=== PATIENT | male | born 1955 | race Caucasian/White ===

== ENCOUNTER → 2016-10-24 | Outpatient (CLI) | payer OTHER ==
[~2016-10-24] MED LIST: ACET-1256 PO; ATV/1 PO; CITA20TA9 PO; COCO1OIL2 PO; COEN10CA5 PO; DOCU-94 PO; GARL400T4 PO; HYOS0.1255 PO; LCTX PO; MULT-506 PO; OMEGCAP2 PO; ONDA4TAB65 PO; POLY335019 PO; PSYL1POW4 PO; SENN-91 PO
[2016-10-24 17:05] LABS: ALT/SGPT 22 U/L (12-78); AST/SGOT 9 U/L (15-37); BLOOD UREA NITROGEN 21 mg/dl (7-18); BUN/CREATININE RATIO 27.3 (10-20); CALCIUM 8.9 mg/dl (8.5-10.1); CARBON DIOXIDE 28 mmol/L (21-32); CHLORIDE 105 mmol/L (98-107); CREATININE 0.76 mg/dl (0.60-1.40); GLUCOSE 96 mg/dl (70-99); POTASSIUM 4.3 mmol/L (3.5-5.1); SODIUM 141 mmol/L (136-145)
[2016-10-24 17:10] LABS: BASO % 0.5 %; BASO ABS # 0.03 K/uL (0-0.2); COMPLETE YES; EOS % 1.7 %; HEMATOCRIT 43.3 % (42-52); IG% 0.5 %; LYMPH % 23.3 %; LYMPH ABS # 1.39 K/uL (1.2-3.4); MEAN CELL VOLUME 88.4 fL (80-100); MEAN CORPUSCULAR HEMOGLOBIN 30.6 pg (25-34); MEAN CORPUSCULAR HGB CONC 34.6 g/dl (32-36); MEAN PLATELET VOLUME 10.2 fL (7.4-10.4); MONO % 9.2 %; NEUT % 64.8 %; PLATELET COUNT 204 K/uL (130-400); WHITE BLOOD COUNT 5.96 K/uL (4.8-10.8)
[2016-10-24 17:11] LABS: ALB/GLOB RATIO 1.1 (0.9-2); ALKALINE PHOSPHATASE 72 U/L (45-117); CHOLESTEROL 171 mg/dl (0-200); CHOLESTEROL/HDL RATIO 2.7; HDL CHOLESTEROL 63 mg/dl; LDL CHOLESTEROL CALCULATED 98 mg/dl; PROSTATE SPECIFIC ANTIGEN 0.469 ng/ml (0.000-4.000); TRIGLYCERIDES 48 mg/dl (0-150); VERY LOW DENSITY LIPOPROT CALC 10 mg/dl
--- NOTE | 2017-01-05 09:57 | CODING QUERY MEDICAL NECESSITY ---
CQSUPPORTING DIAGNOSIS NEEDED A supporting diagnosis is required for the test/procedure performed on this patient in order for us to be reimbursed by the patient's insurance. Please provide a supporting diagnosis for the following test/procedure listed below next to the test name along with your signature. *If there is no additional diagnosis for this patient that would support the following test/procedure please document that below next to the test/procedure. Test(s)/Procedure(s) that require a supporting diagnosis: DOS 10/24/16 COMPLETE BLOOD COUNT ORDERED BY ZACHARY PRESCOTT Provider Signature: Date: Thank you Elsa Pacheco Health Information Management Once completed, please kindly fax back to [phone] For questions please call [phone]
== END | disposition home or self-care (01) ==
LOC: C.LABBFT 13:47
PROVIDERS: ATTEND Physician Assistant Medical
DX: Z00.00 Encounter for general adult medical examination without abnormal findings (principal); Z12.5 Encounter for screening for malignant neoplasm of prostate

== ENCOUNTER → 2017-12-31 | Day surgery (SDC) | payer OTHER ==
[2017-12-25 13:28] VITALS: BMI 28.0
--- NOTE | 2017-12-25 14:04 | PAT Medication Instructions ---
Service Date December 25, 2017. Current Home Medication List Citalopram Hydrobromide (Celexa), 20 MG PO QPM Multivitamin (Multivitamin), 1 TAB PO PRN Medication Instructions For Your Scheduled Surgery - Hold the following medications the morning of surgery: Multivitamin (Multivitamin), 1 TAB PO PRN - Take the following medications as scheduled the night before surgery: Citalopram Hydrobromide (Celexa), 20 MG PO QPM If you have any questions please call us at [phone] or [phone] or [phone]
--- NOTE | 2017-12-25 14:55 | DIAGNOSTIC IMAGING REPORT ---
TWO VIEW CHEST CLINICAL HISTORY: Preoperative examination. FINDINGS: PA and lateral chest radiographs are compared to study dated 06/21/2016 and correlated with chest CT dated 01/25/2016. The PA view is degraded by patient rotation. The heart is mildly enlarged. The pulmonary vasculature is noncongested. Emphysema and chronic interstitial thickening are similar to previous. No airspace consolidation or pleural effusion is identified. There is a 10 mm nodular density suggested in the right upper lobe. No airspace consolidation or pleural effusion is identified. There is no pneumothorax. The skeletal structures are osteopenic. Degenerative changes noted throughout the thoracic spine. There are healed left-sided rib fractures. IMPRESSION: 1. Mild cardiac enlargement and emphysema. 2. There is no airspace consolidation or pleural effusion. 3. A 10 mm nodular density is suggested in the right upper lobe. Follow-up with a chest CT is recommended for further assessment. Electronically signed by: Henrique Roblero M.D. 12/25/2017 2:54 PM Dictated Date/Time: 12/25/2017 2:50 PM
[2017-12-25 14:59] LABS: BASO % 0.3 %; BASO ABS # 0.02 K/uL (0-0.2); EOS % 1.2 %; EOS ABS # 0.07 K/uL (0-0.5); HEMOGLOBIN 15.5 g/dL (14.0-18.0); IG# 0.02 K/uL (0.00-0.02); LYMPH % 24.2 %; LYMPH ABS # 1.45 K/uL (1.2-3.4); MEAN CORPUSCULAR HGB CONC 34.4 g/dl (32-36); MEAN PLATELET VOLUME 9.7 fL (7.4-10.4); MONO % 9.8 %; MONO ABS # 0.59 K/uL (0.11-0.59); NEUT % 64.2 %; NEUT ABS # 3.85 K/uL (1.4-6.5); PLATELET COUNT 185 K/uL (130-400); RED CELL DISTRIBUTION WIDTH CV 13.4 % (11.5-14.5); RED CELL DISTRIBUTION WIDTH SD 42.8 fL (36.4-46.3)
[2017-12-25 15:07] LABS: CALCIUM 9.4 mg/dl (8.5-10.1); CREATININE 0.78 mg/dl (0.60-1.40)
[~2017-12-31] VITALS: Ht 195.6 cm; Wt 109.6 kg
[~2017-12-31] MED LIST changes: -ACET-1256 PO; +ATROPINE SULFATE 0.1 MG/ML 5ML SYR IV PRN; -ATV/1 PO; +BACITRACIN 50000 UNIT VIAL ONE; +BUPIVACAINE 0.5 % 5 MG/1 ML MPF 30ML VIAL ONE; +CEFAZOLIN SOD 1 GM VIAL ONE; -COCO1OIL2 PO; -COEN10CA5 PO; -DOCU-94 PO; +EpHEDrine SULFATE INJ 50 MG/ML AMP IV PRN; +FENTANYL CITRATE INJ 50 MCG/1 ML 2 ML VIAL IV PRN; +FENTANYL CITRATE INJ 50 MCG/1 ML 2 ML VIAL ONE; +FLUMAZENIL 0.1 MG/1 ML 10 ML VIAL IV PRN; -GARL400T4 PO; -HYOS0.1255 PO; +LABETALOL HCL IV 5 MG/ML 20ML IV PRN; +LACTATED RINGER'S 1000ML 1,000 ML IV SCH; -LCTX PO; +LIDOCAINE HCL 2% 2 ML VIAL (20MG/ML) ONE; +MIDAZOLAM HCL 1 MG/ML 2ML VIAL ONE; +NALOXONE HCL 0.4 MG/1 ML VIAL/CARP IV PRN; -OMEGCAP2 PO; -ONDA4TAB65 PO; +ONDANSETRON INJ 2 MG/ML 2 ML VIAL IV PRN; +OXYC-57 PO; -POLY335019 PO; +PROPOFOL IV EMULSION 10 MG/ML 20 ML VIAL ONE; -PSYL1POW4 PO; -SENN-91 PO
[2017-12-31 11:51] VITALS: BP 145/80; PULSE 76; TEMP 36.9; O2SAT 97; Ht 195.6 cm; Wt 109.6 kg
--- NOTE | 2017-12-31 12:34 | History & Physical Bridge Note ---
H&P Re-Evaluation Bridge Note: I have examined the patient, reviewed the History & Physical and in the interval since the performance of the History & Physical I have noted the following changes of clinical significance: No changes noted pt marked at bedside all questions answered will get nasal swab cultures for MRSA tag reversal
--- NOTE | 2017-12-31 12:55 | Discharge Instructions ---
Discharge Instructions Date of Service December 31, 2017. Admission Reason for Admission: Umbilical Hernia Discharge Discharge Diagnosis / Problem: Umbilical Hernia Discharge Goals Goal(s): Decrease discomfort, Improve function Activity Recommendations Activity Limitations: as noted below Lifting Limitations: no more than 10 pounds Exercise/Sports Limitations: until after follow-up appointment May Resume Sexual Activity: after follow-up appointment Shower/Bathe: tomorrow Driving or Machine Use: resume 3 days after discharge . Instructions / Follow-Up Instructions / Follow-Up You may shower tomorrow, but please do not soak or scrub your incision. Please follow-up with Dr. Arriola in the General Surgery Clinic. Please call the office at [phone] to make an appointment if you do not have one already. Please call the General Surgery Clinic with any questions or concerns. Current Hospital Diet Patient's current hospital diet: Discharge Diet Recommended Diet: Regular Diet Pending Studies Studies pending at discharge: no Medical Emergencies . Who to Call and When: Medical Emergencies: If at any time you feel your situation is an emergency, please call 911 immediately. . Non-Emergent Contact Non-Emergency issues call your: Primary Care Provider, Surgeon Call Non-Emergent contact if: temperature is above 101.5, your pain is not controlled, wound has increased drainage, wound has increased redness . "Provider Documentation" section prepared by Patt Florian. .
--- NOTE | 2017-12-31 13:39 | [facility] Post Operative Brief Note ---
Immediate Operative Summary Operative Date December 31, 2017. Pre-Operative Diagnosis Umbilical Hernia Post-Operative Diagnosis Incarcerated umbilical hernia incisional Procedure(s) Performed Open Incarcerated Umbilical Hernia Repair incisional resection incarcerated tissue Surgeon Dr. Anjel Arriola Intelligent Systems Engineer Surgeon(s) None per surgeon. Estimated Blood Loss 5 cc Findings See Below 1.5 cm defect inc tissue Specimens A: incarcerated hernia contents Anesthesia Type MAC
[2017-12-31 14:20] VITALS: BP 151/83; PULSE 61; TEMP 36.6; O2SAT 96
--- NOTE | 2017-12-31 14:23 | OPERATIVE REPORT ---
DATE OF OPERATION: 12/31/2017 SURGEON: Anjel Arriola M.D. PREOPERATIVE DIAGNOSIS: Incarcerated umbilical hernia. POSTOPERATIVE DIAGNOSIS: Incarcerated incisional hernia. PROCEDURE: Open repair incarcerated incisional hernia. SUMMARY: Patient was brought into the operating room theater. The abdomen was prepped with Betadine scrubbing solution and properly draped. Systemic antibiotics were given. Local anesthetic 1% Xylocaine without epinephrine was used to infiltrate around the incision that the patient had an infraumbilical smiling type of incision that was used apparently to do laparoscopic Christiana in the past. Incision was made from 3-9 o'clock position, deepened through subcutaneous tissue. Once we entered the subcutaneous tissue, moderate amount of scar tissue was identified and dissected out to the abdominal wall. We circumferentially elevated the umbilical tissue out and identified that the patient had a significant amount of incarcerated fatty tissue coming through the abdominal wall opening which was about a centimeter or so in size. We resected incarcerated fatty tissue, ligating the base with 2-0 silk, returned the other tissue intraabdominally, freed up the abdominal wall fascia around the defect and as stated was about 1.5 cm in size and I felt that it was probably sufficient to close it primarily with interrupted #1 PDS suture. Once the repair was completed, we then reattached the subcutaneous tissue and the umbilical area to that area with 2-0 Dexon, 4-0 Monocryl subcuticular, piece of cotton swab was placed in the umbilical tissue, 4 x 4 and Op-Site applied. Procedure was tolerated well by the patient. Estimated blood loss approximately 5 mL. The patient was taken to recovery in good condition. I attest to the content of the Intraoperative Record and any orders documented therein. Any exception s are noted below.
--- NOTE | 2017-12-31 14:24 | Anesthesiology Progress Note ---
Anesthesia Post Op Note Date & Time December 31, 2017 at 14:23 Vital Signs Pain Intensity: 1 Vital Signs Past 12 Hours Date Time Temp Pulse Resp B/P (MAP) Pulse Ox O2 Delivery O2 Flow Rate FiO2 12/31/17 14:00 36.8 62 16 131/75 98 Room Air 12/31/17 13:55 67 16 124/70 99 Room Air 12/31/17 13:45 36.7 67 16 127/73 99 Room Air 12/31/17 11:51 36.9 76 20 145/80 (101) 97 Room Air Notes Mental Status: alert / awake / arousable, participated in evaluation Pt Amnestic to Procedure: Yes Nausea / Vomiting: adequately controlled Pain: adequately controlled Airway Patency, RR, SpO2: stable & adequate BP & HR: stable & adequate Hydration State: stable & adequate Anesthetic Complications: no major complications apparent
[2017-12-31 14:50] VITALS: BP 145/80; PULSE 54; TEMP 36.6; O2SAT 96
== END | disposition home or self-care (01) ==
LOC: C.ACU 11:23
PROVIDERS: ATTEND Surgery
DX: K42.0 Umbilical hernia with obstruction, without gangrene (principal); L72.3 Sebaceous cyst; Z96.651 Presence of right artificial knee joint; Z90.49 Acquired absence of other specified parts of digestive tract; Z98.890 Other specified postprocedural states; Z82.3 Family history of stroke; Z82.49 Family history of ischemic heart disease and other diseases of the circulatory system; Z81.8 Family history of other mental and behavioral disorders; F12.90 Cannabis use, unspecified, uncomplicated; Z87.891 Personal history of nicotine dependence; Z79.899 Other long term (current) drug therapy; Z88.8 Allergy status to other drugs, medicaments and biological substances

== ENCOUNTER → 2018-04-07 | Outpatient (CLI) | payer OTHER ==
[~2018-04-07] MED LIST changes: -ATROPINE SULFATE 0.1 MG/ML 5ML SYR IV PRN; -BACITRACIN 50000 UNIT VIAL ONE; -BUPIVACAINE 0.5 % 5 MG/1 ML MPF 30ML VIAL ONE; -CEFAZOLIN SOD 1 GM VIAL ONE; -EpHEDrine SULFATE INJ 50 MG/ML AMP IV PRN; -FENTANYL CITRATE INJ 50 MCG/1 ML 2 ML VIAL IV PRN; -FENTANYL CITRATE INJ 50 MCG/1 ML 2 ML VIAL ONE; -FLUMAZENIL 0.1 MG/1 ML 10 ML VIAL IV PRN; -LABETALOL HCL IV 5 MG/ML 20ML IV PRN; -LACTATED RINGER'S 1000ML 1,000 ML IV SCH; -LIDOCAINE HCL 2% 2 ML VIAL (20MG/ML) ONE; -MIDAZOLAM HCL 1 MG/ML 2ML VIAL ONE; -NALOXONE HCL 0.4 MG/1 ML VIAL/CARP IV PRN; -ONDANSETRON INJ 2 MG/ML 2 ML VIAL IV PRN; -OXYC-57 PO; -PROPOFOL IV EMULSION 10 MG/ML 20 ML VIAL ONE
== END | disposition home or self-care (01) ==
LOC: C.PATHSPEC 17:15
PROVIDERS: ATTEND Surgery
DX: L82.1 Other seborrheic keratosis (principal)

== ENCOUNTER 2025-06-14 04:51 | Inpatient (IN) ==
[2025-06-14] MEDS: MoRPHine SULFATE 4 MG/ML 1 ML CARP\\VIAL IV PRN (05:13)
[2025-06-14] MEDS: ONDANSETRON INJ 2 MG/ML 2 ML VIAL IV STA (05:13)
[2025-06-14] MEDS: SODIUM CHLORIDE 0.9% 1,000 ML IV ONE (05:14)
--- NOTE | 2025-06-14 05:21 | Emergency Department Note ---
History of Present Illness General Chief complaint: Abdominal Pain Stated complaint: ABD PAIN,VOMITING,SHAKING Time Seen by Provider: 06/14/25 04:57 History of Present Illness Maximum Pain Intensity: 10 This is a 69-year-old male presenting to the emergency department for evaluation abdominal pain for the past 3 days. He is coming in by his who assist in the history. Patient states the pain is diffuse across his abdomen. He is with nausea and vomiting. Patient has not had fevers or chills. He does have a past history of chronic abdominal pain and small bowel obstruction. Patient has been using marijuana for low back pain. No recent travel history. No change in medications. Home Medications Medication Instructions Recorded Confirmed Type multivitamin 1 tab PO HS 03/21/21 06/14/25 History ginkgo biloba leaf extract 120 mg 120 mg PO DAILY 05/30/24 06/14/25 History capsule magnesium aspart,citrate,oxide 0 mg PO UD 05/30/24 06/14/25 History omega-3 fatty acids 500 mg capsule 500 mg PO DAILY 05/30/24 06/14/25 History potassium citrate 99 mg capsule 0 mg PO UD 05/30/24 06/14/25 History citalopram 20 mg tablet 20 mg PO QAM #90 tabs 06/20/24 06/14/25 Rx gabapentin 300 mg capsule 300 mg PO TID 06/14/25 06/14/25 History Allergies Allergy/AdvReac Type Severity Reaction Status Date / Time No Known Allergies Allergy Verified 06/22/24 14:27 Past Med/Surg History Problem List (Updated 06/14/25 @ 21:26 by Andrew Landry PA-C) Marijuana use (Acute) Nausea and vomiting (Acute) Abdominal pain (Acute) Cardiomyopathy Elevated troponin (Acute) NSTEMI (non-ST elevated myocardial infarction) Sinus tachycardia Colon cancer screening Encounter for pre-operative examination Coronary artery calcification Hyperlipidemia Chronic lumbar pain (Chronic) Lumbar radiculopathy (Chronic) Chest pain Chronic abdominal pain (Chronic) Depression (Chronic) Sacroiliitis Esophageal dysmotility (Chronic) "s/p dilation 02/2015" Septic arthritis (Chronic) "right knee, completed Vanco therpay, s/p antibiotic spacer placement " Hx MRSA infection (Chronic) [facility] Medical History Anxiety Elevated cholesterol Scoliosis Osteoarthritis Surgical History History of repair of rotator cuff right Hx of colonoscopy Hx of abdominal surgery repair of torn diaphragm Hx of laparoscopy ingrid fundoplication History of total knee replacement RT (+REVISION) History of lumbar surgery no hardware History of knee surgery right/left History of esophagogastroduodenoscopy (EGD) History of cholecystectomy History of tooth extraction S/P revision of total knee right S/P repair of paraesophageal hernia "02/2015" Family History Brother Family history of diabetes mellitus Other No family history of adverse response to anesthesia Denies family history of Ovarian cancer Prostate cancer Myocardial infarction Breast cancer Colorectal cancer Social History Smoking Status: Never smoker Tobacco Type: Cigarettes Age Started Using Tobacco: 19; Age Quit Using Tobacco: 50; packs per day: 1; Second Hand Exposure: Yes (as a child); Do You Dip or Chew Tobacco: Yes; Hx Alcohol Use: Yes Alcohol type: beer Alcohol Intake Frequency: Monthly or Less Hx Substance Use: Yes Last Used Substance: Days (ago) Preferred Language: Georgian Communication Ability: Effective Visual Impairment: No Limitations Hearing Ability: Normal Auto Refinisher Required: No Beliefs That Will Affect Care: None marital status: Current Living Situation: Spouse Current Living Situation Comment: live at home with current occupational status: retired 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 [employer] Feels Safe at Home: Yes Childhood Exposure to Second-Hand Smoke: Yes Diet: regular Diet Comment: eats very healthy caffeine: Yes Dental Care, Regularly: Yes Physical Activity Frequency: Daily Seatbelt Use: always Sunscreen Use: Yes Assistive Devices: None Review of Systems A total of 10 systems reviewed and were otherwise negative Physical Exam Vital Signs Vital Signs - 24 hr 06/14/25 04:54 06/14/25 05:09 06/14/25 06:33 Temperature 36.5 C Temperature Source Oral Pulse Rate 122 H 129 H Pulse Rate [Apical] 99 H Pulse Rhythm [Apical] Regular Pulse Strength [Apical] Normal Respiratory Rate 28 H 20 Respiratory Effort / Characteristics Non-Labored Respiratory Depth Deep Respiratory Pattern Regular Blood Pressure 156/83 H Blood Pressure [Right Arm] 161/98 H Blood Pressure Mean 107 Blood Pressure Mean [Right Arm] 119 Blood Pressure Position [Right Arm] Lying Pulse Oximetry 94 93 Oxygen Delivery Method Room Air Room Air Sepsis Recent Fever Within 48 Hours No Sepsis New/Unexplained Change in Mental Status N/A Sepsis Action Taken by Nursing No Action Required VITALS: Vitals are noted on the nurse's note and reviewed by myself. Vital signs with notable tachycardia. GENERAL: White male who is very tremulous on arrival HEAD: Normocephalic atraumatic. NECK: Supple without nuchal rigidity. No lymphadenopathy. No thyromegaly. Cervical spine is nontender. HEART: Tachycardic rate with regular rhythm LUNGS: Clear to auscultation bilaterally without wheezes, rales or rhonchi. No retractions or accessory muscle use. ABDOMEN: Positive normal bowel sounds x 4. Soft, nontender, without masses or organomegaly. No guarding or rebound tenderness. MUSCULOSKELETAL: No muscle atrophy, erythema, or edema noted. Full range of motion in all extremities. Course Administered Medications Hydromorphone HCl (Hydromorphone Inj 1 Mg/Ml Syringe) 1 mg IV Q3H PRN PRN Reason: Severe Pain (Scale 7, 8, 9,10) Stop: 06/28/25 06:24 Last Admin: 06/14/25 14:06 Dose: 1 mg Documented By: Admin: 06/14/25 09:26 Dose: 1 mg Documented By: AZALEA Potassium Chloride/Sodium Chloride (Normal Saline W/20 Meq Kcl) 20 meq in 1,000 mls @ 100 mls/hr IV .Q10H [facility] Stop: 06/15/25 02:44 Last Admin: 06/14/25 20:35 Dose: 100 mls/hr Documented By: Infusion: 06/14/25 19:05 Dose: Infused Documented By: Admin: 06/14/25 09:05 Dose: 100 mls/hr Documented By: AZALEA Prochlorperazine 10 mg/ (Syringe) 10 mls @ 5 mls/min IV Q6H PRN PRN Reason: Nausea And Vomiting Stop: 07/14/25 06:59 Last Admin: 06/14/25 09:22 Dose: 5 mls/min Documented By: AZALEA Dexamethasone 6 mg/ Syringe 1.5 mls @ 1 mls/min IV Q12H KARO Stop: 07/14/25 07:59 Last Admin: 06/14/25 20:37 Dose: 1 mls/min Documented By: Admin: 06/14/25 11:12 Dose: 1 mls/min Documented By: KATERINA Pantoprazole Sodium (Protonix) 40 mg in 10 mls @ 5 mls/min IV BID KARO Stop: 07/14/25 20:59 Last Admin: 06/14/25 20:37 Dose: 5 mls/min Documented By: SHRAVAN Multivitamins (Multivitamin Tab) 1 tab PO HS KARO Stop: 07/14/25 20:59 Last Admin: 06/14/25 20:38 Dose: 1 tab Documented By: SHRAVAN Discontinued Medications Aspirin (Aspirin 81 Mg Chew) 324 mg PO NOW STA Stop: 06/14/25 11:53 Last Admin: 06/14/25 12:07 Dose: 324 mg Documented By: KATERINA Diltiazem HCl (Diltiazem Hcl 5 Mg/Ml 5 Ml Vial) 10 mg IV NOW STA Stop: 06/14/25 06:29 Last Admin: 06/14/25 06:40 Dose: 10 mg Documented By: eldon Co-signed By: JOE Diltiazem HCl (Diltiazem Hcl 5 Mg/Ml 5 Ml Vial) 10 mg IV Q4H STA Stop: 06/14/25 07:20 Last Admin: 06/14/25 08:25 Dose: Not Given Documented By: CEF Sodium Chloride (Nss) 1,000 mls @ 999 mls/hr IV .Q1H1M ONE Stop: 06/14/25 06:01 Last Infusion: 06/14/25 06:14 Dose: Infused Documented By: Admin: 06/14/25 05:14 Dose: 999 mls/hr Documented By: JOE Pantoprazole Sodium (Protonix) 40 mg in 10 mls @ 5 mls/min IV NOW ONE Stop: 06/14/25 06:37 Last Admin: 06/14/25 06:46 Dose: 5 mls/min Documented By: eldon Famotidine (Pepcid 20mg Iv Push) 20 mg in 5 mls @ 2.5 mls/min IV NOW STA Stop: 06/14/25 08:37 Last Admin: 06/14/25 09:03 Dose: 2.5 mls/min Documented By: AZALEA Promethazine HCl (Phenergan) 25 mg in 51 mls @ 204 mls/hr IV NOW STA Stop: 06/14/25 13:38 Last Infusion: 06/14/25 15:43 Dose: Infused Documented By: mahnaz Admin: 06/14/25 14:06 Dose: 204 mls/hr Documented By: GUADALUPE Ioversol (Optiray 320 100ml) 94 ml IV ONCE ONE Stop: 06/14/25 09:51 Last Admin: 06/14/25 09:51 Dose: 94 ml Documented By: SHELLIE Lorazepam (Lorazepam 1 Mg/1 Ml Syr Ed Inj Use) 0.5 mg IV ONE STA Stop: 06/14/25 05:15 Last Admin: 06/14/25 05:23 Dose: 0.5 mg Documented By: JOE Morphine Sulfate (Morphine Sulfate 4 Mg/Ml 1 Ml Carp\\Vial) 4 mg IV Q30M PRN PRN Reason: Pain Stop: 06/28/25 05:00 Last Admin: 06/14/25 06:13 Dose: 4 mg Documented By: eldon Admin: 06/14/25 05:13 Dose: 4 mg Documented By: JOE Ondansetron HCl (Ondansetron Inj 2 Mg/Ml 2 Ml Vial) 4 mg IV NOW STA Stop: 06/14/25 05:02 Last Admin: 06/14/25 05:13 Dose: 4 mg Documented By: JOE Medical Decision Making Differential Diagnosis Differential diagnosis: Etiologies such as biliary colic, cholecystitis, hepatitis, pancreatitis, cardiac disease, pancreatitis, gastritis, peptic ulcer disease, appendicitis, cystitis, diverticulitis, mesenteric ischemia, inflammatory bowel disease, ileus, bowel obstruction, testicular/adnexal torsion, aortic pathology, shingles, as well as others were considered Laboratory Data 06/14/25 05:02 06/14/25 16:10 Lab Results 06/14/25 Range/Units 05:02 WBC 16.26 H (4.8-10.8) K/ul RBC 6.03 (4.70-6.10) M/uL Hgb 18.2 H (14.0-18.0) g/dl Hct 51.8 (42.0-52.0) % MCV 85.9 (80.0-100.0) fL MCH 30.2 (25.0-34.0) pg MCHC 35.1 (32.0-36.0) g/dL RDW Std Deviation 42.3 (36.4-46.3) fL RDW Coeff of Richard 13.6 (11.5-14.5) % Plt Count 345 (130-400) K/uL MPV 9.5 (9.4-12.4) fL Immature Gran % (Auto) 0.6 % Neut % (Auto) 74.3 % Lymph % (Auto) 14.9 % Citrus % (Auto) 9.7 % Eos % (Auto) 0.1 % Baso % (Auto) 0.4 % Neut # (Auto) 12.10 H (1.40-6.50) K/uL Lymph # (Auto) 2.42 (1.20-3.40) K/uL Citrus # (Auto) 1.57 H (0.11-0.59) K/uL Eos # (Auto) 0.02 (0.00-0.50) K/uL Baso # (Auto) 0.06 (0.00-0.20) K/uL Immature Gran # (Auto) 0.09 (0.01-0.20) K/uL PT 12.0 (9.0-12.0) Seconds INR 1.1 (0.9-1.1) APTT 26 (21-31) Seconds PTT Ratio 1.0 Sodium 132 L (136-145) mmol/L Potassium 3.7 (3.5-5.1) mmol/L Chloride 100 (98-107) mmol/L Carbon Dioxide 18 L (21-32) mmol/L Anion Gap 14 H (3-11) BUN 44 H (6-23) mg/dl Creatinine 1.28 (0.6-1.4) mg/dl Est Cr Clr Drug Dosing Not Reportable eGFR 59.84 BUN/Creatinine Ratio 34.4 H (10-20) Glucose 181 H (70-99(Fasting)) mg/dl Calcium 10.8 H (8.6-10.3) mg/dl Magnesium 2.2 (1.7-2.4) mg/dl Total Bilirubin 1.2 H (0.2-1.0) mg/dl AST 36 (13-39) U/L ALT 19 (7-52) U/L Alkaline Phosphatase 93 (34-104) U/L Troponin I High Sens 73.1 H* (0-20) pg/ml Total Protein 8.8 H (6.0-8.3) gm/dl Albumin 4.7 (3.4-5.0) gm/dl Globulin 4.1 H (2.5-4.0) gm/dl Albumin/Globulin Ratio 1.1 (0.9-2) Lipase 25 (11-82) U/L Imaging Data Radiologist's Impression: Abdomen/Pelvis CT 06/14/25 05:[address] WITH IV CONTRAST CT DOSE: 875.03 mGy.cm HISTORY: Acute generalized abdominal pain generalized abd pain, n/v TECHNIQUE: Multiaxial CT images of the abdomen and pelvis were performed following the IV administration of 94 cc of Optiray, A dose lowering technique was utilized adhering to the principles of ALARA. COMPARISON STUDY: 03/21/2021 FINDINGS: Moderate to extensive coronary artery calcifications. Pulmonary emphysema with mild bibasilar atelectasis. No pneumatosis or pneumoperitoneum. Unremarkable spleen. Calcifications involving the uncinate process pancreas redemonstrated. Bilateral nodular thickening of the adrenal glands is stable measuring up to 1.5 cm bilaterally. There are a few scattered cysts again noted within the liver which are similar to prior. Patent portal vein. Cholecystectomy. Unchanged likely postsurgical biliary ductal dilation. Cortical thinning of the kidneys. No hydronephrosis. Left-sided renal sinus cysts are again noted. There are a few small parenchymal cysts of the kidneys also again seen. Urinary bladder wall thickening with partial distention. Mildly enlarged prostate. Atherosclerosis of the aorta and branch vessels. No lymphadenopathy. Small hiatal hernia. No bowel obstruction or bowel wall thickening. Colonic diverticulosis without acute diverticulitis. No ascites or mesenteric inflammation. Unremarkable soft tissues. Lumbar levoscoliosis. No acute fracture. IMPRESSION: 1. No acute intra-abdominal or intrapelvic abnormality identified. 2. No bowel obstruction or bowel wall thickening. 3. Colonic diverticulosis. 4. Small hiatal hernia. 5. Chronic findings as above. ACT 112: Negative or not required by law. The above report was generated using voice recognition software. It may contain grammatical, syntax or spelling errors. Electronically signed by: Christiano Ruiz M.D. 06/14/2025 10:49 AM MDM Narrative Physical exam and history were performed. Nursing notes, EMR, and Medication List were personally reviewed. No social concerns were identified as barriers to patients care. History was provided by the Patient and who is at bedside. Patient appears to have abdominal pain with nausea and vomiting for the past several days. He has been using "too much" marijuana to treat his back pain. Patient is very tachycardic and tremulous on arrival. IV access was established and labs were obtained. Patient was hydrated with normal saline and given IV morphine, IV Zofran, and IV Ativan. CT scan of his abdomen and pelvis was ordered. An order was placed for continuous cardiac monitoring. The monitor shows a rate of 76 with normal sinus rhythm. Patient's blood work is as above and was reviewed. He does have an elevated white count of 16,000, but also has an elevated hemoglobin which may be from dehydration/hemoconcentration. INR is 1.1. Potassium normal at 4.1. Glucose 126. Transaminases not diagnostic. High-sensitivity troponin is elevated at 73, which may represent NSTEMI versus demand ischemia. Second EKG was performed after heart rate normalized and patient remains without acute ST elevation event. Escalation of care was considered, and is felt to be necessary. Patient seems to be dehydrated with an elevated troponin. He is somewhat improving with treatment here in the ER but will require additional care. Case was discussed with my attending as well as the on-call hospitalist team, who agreed to evaluate the patient here in the ER. Please see their dictation for further patient course, plan, disposition. The chart was completed utilizing [employer] Speech Voice Recognition Software. Grammatical errors, random word insertions, pronoun errors, and incomplete sentences are an occasional consequence of this system due to software limitations, ambient noise, and hardware issues. Any formal questions or concerns about the content, text, or information contained within the body of this dictation should be directly addressed to the provider for clarification. Impression & Plan Elevated troponin, Abdominal pain, Nausea and vomiting, Marijuana use Discharge Plan Visit Data Chief Complaint: Abdominal Pain Stated Complaint: ABD PAIN,VOMITING,SHAKING ED Provider: Chato Johnson ED Midlevel Provider: Andrew Landry Discharge Problem: Elevated troponin, Abdominal pain, Nausea and vomiting, Marijuana use Patient Disposition: Admitted As Inpatient Condition: Fair Discharge Instructions Interventions: ED Discharge Assessment Last Done: 06/14/25 11:52
[2025-06-14] MEDS: LORazepam 1 MG/1 ML SYR ED Inj Use IV STA (05:23)
[2025-06-14 05:33] LABS: Hematocrit (blood only) 51.8 % (42.0-52.0); Hemoglobin 18.2 g/dl (14.0-18.0); Immature Granulocytes # (auto) 0.09 K/uL (0.01-0.20); Immature Granulocytes % (auto) 0.6 %; Mean Corpuscular Hemoglobin 30.2 pg (25.0-34.0); Mean Corpuscular Volume 85.9 fL (80.0-100.0); Platelet Count 345 K/uL (130-400); RDW Standard Deviation 42.3 fL (36.4-46.3); Red Blood Count 6.03 M/uL (4.70-6.10); White Blood Count 16.26 K/ul (4.8-10.8)
[2025-06-14 05:34] LABS: Alanine Aminotransferase 19 U/L (7-52); Albumin Globulin Ratio 1.1 (0.9-2); Albumin Level 4.7 gm/dl (3.4-5.0); Alkaline Phosphatase 93 U/L (34-104); Anion Gap 14 (3-11); Bilirubin,Total 1.2 mg/dl (0.2-1.0); Blood Urea Nitrogen 44 mg/dl (6-23); Calcium 10.8 mg/dl (8.6-10.3); Carbon Dioxide 18 mmol/L (21-32); Chloride 100 mmol/L (98-107); Globulin 4.1 gm/dl (2.5-4.0); Glucose 181 mg/dl (70-99(Fasting)); Lipase 25 U/L (11-82); Magnesium 2.2 mg/dl (1.7-2.4); Potassium 3.7 mmol/L (3.5-5.1); Sodium 132 mmol/L (136-145); Total Protein 8.8 gm/dl (6.0-8.3)
[2025-06-14 06:13] LABS: INR 1.1 (0.9-1.1); Partial Thromboplastin Time 26 Seconds (21-31); Prothrombin Time 12.0 Seconds (9.0-12.0)
[2025-06-14] MEDS ORDERED: NALOXONE HCL 0.4 MG/1 ML VIAL/CARP IV PRN (06:25)
[2025-06-14] MEDS ORDERED: HYDROmorphone INJ 0.5 MG/0.5 ML SYR IV PRN (06:25)
[2025-06-14] MEDS ORDERED: ACETAMINOPHEN 1,000 MG/100 ML VIAL IV PRN (06:36)
[2025-06-14] MEDS: PANTOprazole 40 MG/10 ML SYR IV ONE (06:46)
--- NOTE | 2025-06-14 07:01 | History & Physical Report ---
Date of Service June 14, 2025 Assessment & Plan (1) Sinus tachycardia: (2) NSTEMI (non-ST elevated myocardial infarction): (3) Lumbar radiculopathy: (4) Chronic lumbar pain: Plan The patient is a 69-year-old male with past med history including hyperlipidemia, coronary artery calcifications, chronic lumbar pain, lumbar radiculopathy, history of small bowel obstruction, history of pancreatitis, depression, esophageal dysmotility, septic arthritis, and history of MRSA infection. The patient presents to the emergency department with intractable nausea, vomiting and abdominal discomfort for the past 3 days. He has been smoking large amounts of marijuana to help deal with ongoing and worsening low back and sciatica pain. He reports he is seeing orthopedic surgeons who are trying to also drain fluid out of a Nuñez's cyst. His is with him, who helps corroborate the story. He was found to have a heart rate of 125-135 and peak blood pressure of 190s/90s. From the ED has received normal saline 1 L bolus, morphine 4 mg IV x 2, Zofran 4 mg IV, and lorazepam 0.5 mg IV, with little improvement in pain, nausea and blood pressure and heart rate. His troponin was found to be elevated at 73.1, potassium 3.7, magnesium 2.2, calcium is 10.8 hemoglobin is 18.2 hematocrit 51.8, WBC 16.26. Laboratories suggestive of hemoconcentration. He also tried capsaicin cream, which made his skin turn bright red. The patient was referred for evaluation for admission to the [facility]. The patient's increased heart rate and blood pressure seem to be more directly related to the severity of his worsening low back pain and radicular pain. Morphine has not helped his pain. He will he will be given a trial of Dilaudid 0.5 mg IV to start. A urine drug screen has been ordered, result been collected. Concerned there may be some contamination of the marijuana he was using, and until urine drug screen is back and not showing cocaine or amphetamines, beta-blockers will be avoided. Will start with Cardizem 10 mg IV and follow response. Sinus tachycardia/NSTEMI- The patient will be admitted to telemetry for serial cardiac enzymes, serial EKG's, cardiac rhythm monitoring and a 2-D echocardiogram with Dopplers. Initial troponin 73.10 follow-ups pending Initial EKG showed sinus tachycardia at 129 Unclear at this time whether the marijuana he was smoking was possibly laced with his another product increases heart rate such as cocaine or amphetamines. Will not use beta-blockers at this time Give Cardizem 10 mg IV now, and determine whether patient will get IV pushes and/or Cardizem drip. Potassium 3.7 is actually probably lower his most of his labs are hemoconcentrated. Placed on NSS + KCl 20 mill equivalents at 100 mL/h x 2 L pain control For his low back pain is reported, as his pain is likely driving his heart rate as well. Until no longer so nauseated, cardizem 10mg IV q4h with hold parameters Consult cardiology Severe low back pain and lumbar radiculopathy- He has been seeing Dr. Junior from orthopedics with injections. He received morphine 4 mg IV x 2 with no effect on his pain Acetaminophen 1 g IV every 8 hours as needed for mild pain or fever Dilaudid 0.5 mg IV every 3 hours as needed for moderate pain Dilaudid 1 mg IV every 3 hours as needed for severe pain Narcan IV per protocol He reports being on gabapentin 3 times a day unclear dose at this time once verified, will prescribe Hold citalopram due to potential interaction with Zofran Start dexamethasone 6 mg IV every 12 hours with first dose at 8 AM. Cannabinoid hyperemesis syndrome- No significant relief with Zofran Do a trial of Compazine 10 mg IV every 6 hours as needed for nausea or vomiting Lorazepam 0.5 mg IV every 8 hours as needed for anxiety Hypoxia- Incentive spirometry Nasal cannula 2 L with saturation goal 92-94% History of Present Illness Chief Complaint: The patient presents to the emergency department with intractable nausea, vomiting and abdominal discomfort for the past 3 days. He has been smoking large amounts of marijuana to help deal with ongoing and worsening low back and sciatica pain. He reports he is seeing orthopedic surgeons who are trying to also drain fluid out of a Nuñez's cyst. His is with him, who helps corroborate the story. He was found to have a heart rate of 125-135 and peak blood pressure of 190s/90s. From the ED has received normal saline 1 L bolus, morphine 4 mg IV x 2, Zofran 4 mg IV, and lorazepam 0.5 mg IV, with little improvement in pain, nausea and blood pressure and heart rate. His troponin was found to be elevated at 73.1, potassium 3.7, magnesium 2.2, calcium is 10.8 hemoglobin is 18.2 hematocrit 51.8, WBC 16.26. Laboratories suggestive of hemoconcentration. He also tried capsaicin cream, which made his skin turn bright red. Primary Care Provider: JAMES Lizarraga The patient is a 69-year-old male with past med history including hyperlipidemia, coronary artery calcifications, chronic lumbar pain, lumbar radiculopathy, history of small bowel obstruction, history of pancreatitis, depression, esophageal dysmotility, septic arthritis, and history of MRSA infection. The patient presents to the emergency department with intractable nausea, vomiting and abdominal discomfort for the past 3 days. He has been smoking large amounts of marijuana to help deal with ongoing and worsening low back and sciatica pain. He reports he is seeing orthopedic surgeons who are trying to also drain fluid out of a Nuñez's cyst. His is with him, who helps corroborate the story. He was found to have a heart rate of 125-135 and peak blood pressure of 190s/90s. From the ED has received normal saline 1 L bolus, morphine 4 mg IV x 2, Zofran 4 mg IV, and lorazepam 0.5 mg IV, with little improvement in pain, nausea and blood pressure and heart rate. His troponin was found to be elevated at 73.1, potassium 3.7, magnesium 2.2, calcium is 10.8 hemoglobin is 18.2 hematocrit 51.8, WBC 16.26. Laboratories suggestive of hemoconcentration. He also tried capsaicin cream, which made his skin turn bright red. The patient was referred for evaluation for admission to the [facility]. Allergies Allergy/AdvReac Type Severity Reaction Status Date / Time No Known Allergies Allergy Verified 06/22/24 14:27 Home Medications Medication Instructions Recorded Confirmed Type multivitamin 1 tab PO HS 03/21/21 06/22/24 History ginkgo biloba leaf extract 120 mg 120 mg PO DAILY 05/30/24 06/22/24 History capsule magnesium aspart,citrate,oxide mg PO 05/30/24 06/22/24 History omega-3 fatty acids 500 mg capsule 500 mg PO DAILY 05/30/24 06/22/24 History potassium citrate 99 mg capsule mg PO 05/30/24 06/22/24 History amoxicillin 875 mg-potassium 1 tab PO BID #14 tabs 06/20/24 06/22/24 Rx clavulanate 125 mg tablet citalopram 20 mg tablet 20 mg PO QAM #90 tabs 06/20/24 06/22/24 Rx Past Med/Surg History Problem List (Updated 06/14/25 @ 06:56 by Nimesh Troy MD) NSTEMI (non-ST elevated myocardial infarction) Sinus tachycardia Colon cancer screening Encounter for pre-operative examination Coronary artery calcification Hyperlipidemia Chronic lumbar pain (Chronic) Lumbar radiculopathy (Chronic) Chest pain Chronic abdominal pain (Chronic) Depression (Chronic) Sacroiliitis Esophageal dysmotility (Chronic) "s/p dilation 02/2015" Septic arthritis (Chronic) "right knee, completed Vanco therpay, s/p antibiotic spacer placement " Hx MRSA infection (Chronic) 2014 [facility] Medical History Anxiety Elevated cholesterol Scoliosis Osteoarthritis Surgical History History of repair of rotator cuff right Hx of colonoscopy Hx of abdominal surgery repair of torn diaphragm Hx of laparoscopy ingrid fundoplication History of total knee replacement RT (+REVISION) History of lumbar surgery no hardware History of knee surgery right/left History of esophagogastroduodenoscopy (EGD) History of cholecystectomy History of tooth extraction S/P revision of total knee right S/P repair of paraesophageal hernia "02/2015" Family History Brother Family history of diabetes mellitus Other No family history of adverse response to anesthesia Denies family history of Ovarian cancer Prostate cancer Myocardial infarction Breast cancer Colorectal cancer Social History Smoking Status: Never smoker Tobacco Type: Cigarettes Age Started Using Tobacco: 19; Age Quit Using Tobacco: 50; packs per day: 1; Second Hand Exposure: Yes (as a child); Do You Dip or Chew Tobacco: Yes (advised); Hx Alcohol Use: Yes Alcohol type: beer Alcohol Intake Frequency: Monthly or Less Hx Substance Use: No Preferred Language: Gambian Communication Ability: Effective Visual Impairment: No Limitations Hearing Ability: Normal Auto Seat Cover Installer Required: No Beliefs That Will Affect Care: None marital status: Current Living Situation: Spouse current occupational status: retired 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 [employer] Feels Safe at Home: Yes Childhood Exposure to Second-Hand Smoke: Yes Diet: regular Diet Comment: eats very healthy caffeine: Yes Dental Care, Regularly: Yes Physical Activity Frequency: Daily Seatbelt Use: always Sunscreen Use: Yes Assistive Devices: Glasses Review of Systems Review of Systems: The patient denies chest pain, palpitations, lower extremity swelling, sore throat, fevers, chills, sweats, diarrhea , constipation, abdominal pain, pelvic pain, blood in urine or stool, dysuria, urinary frequency or urgency, lightheadedness, dizziness, memory loss, loss of consciousness, abnormal bruising or bleeding, imbalance, focal weakness, numbness or tingling in arms or legs, generalized arthralgias or myalgias, neck pain, or night sweats. The review of systems is otherwise negative other than for that already noted above, and at least 10 systems have been reviewed. Physical Exam Physical Exam: The patient is awake, alert and oriented 3, well developed and well nourished, normocephalic and atraumatic, lying in bed and in moderately severe distress due to low back pain and radiculopathy HEENT--PERRL, EOMI, mucous membranes and oropharynx dry. Neck--supple. No JVD. No bruits. Thyroid normal, trachea midline, no adenopathy. Heart-- tachycardic and regular. No murmurs, rubs or gallops. Lungs--clear bilaterally, no respiratory distress, no accessory muscle use. Abdomen--normal bowel sounds and soft. Nontender. Nondistended, no hernias or masses, no organomegaly. Extremities--no cyanosis or clubbing. No edema. There are good distal pulses b/l. Dermatologic-- rash on left chest wall secondary to capsaicin Neurologic--cranial nerves II through XII grossly intact. Rheumatologic--normal range of motion. Psychiatric--normal affect. Results & Data Results & Data Vital Signs (Past 12 Hours) Vital Signs Temp Pulse Pulse Resp BP BP Pulse Ox 06/14/25 06:33 99 H 20 161/98 H 93 06/14/25 05:09 129 H 06/14/25 04:54 36.5 C 122 H 28 H 156/83 H 94 O2 Del Method 06/14/25 06:33 Room Air 06/14/25 05:09 06/14/25 04:54 Room Air Laboratory Results Laboratory Results WBC 16.26 K/ul (4.8-10.8) H 06/14/25 05:02 RBC 6.03 M/uL (4.70-6.10) 06/14/25 05:02 Hgb 18.2 g/dl (14.0-18.0) H 06/14/25 05:02 Hct 51.8 % (42.0-52.0) 06/14/25 05:02 MCV 85.9 fL (80.0-100.0) 06/14/25 05:02 MCH 30.2 pg (25.0-34.0) 06/14/25 05:02 MCHC 35.1 g/dL (32.0-36.0) 06/14/25 05:02 RDW Std Deviation 42.3 fL (36.4-46.3) 06/14/25 05:02 RDW Coeff of Richard 13.6 % (11.5-14.5) 06/14/25 05:02 Plt Count 345 K/uL (130-400) 06/14/25 05:02 MPV 9.5 fL (9.4-12.4) 06/14/25 05:02 Immature Gran % (Auto) 0.6 % 06/14/25 05:02 Neut % (Auto) 74.3 % 06/14/25 05:02 Lymph % (Auto) 14.9 % 06/14/25 05:02 [place] % (Auto) 9.7 % 06/14/25 05:02 Eos % (Auto) 0.1 % 06/14/25 05:02 Baso % (Auto) 0.4 % 06/14/25 05:02 Neut # (Auto) 12.10 K/uL (1.40-6.50) H 06/14/25 05:02 Lymph # (Auto) 2.42 K/uL (1.20-3.40) 06/14/25 05:02 [place] # (Auto) 1.57 K/uL (0.11-0.59) H 06/14/25 05:02 Eos # (Auto) 0.02 K/uL (0.00-0.50) 06/14/25 05:02 Baso # (Auto) 0.06 K/uL (0.00-0.20) 06/14/25 05:02 Immature Gran # (Auto) 0.09 K/uL (0.01-0.20) 06/14/25 05:02 PT 12.0 Seconds (9.0-12.0) 06/14/25 05:02 INR 1.1 (0.9-1.1) 06/14/25 05:02 APTT 26 Seconds (21-31) 06/14/25 05:02 PTT Ratio 1.0 06/14/25 05:02 Sodium 132 mmol/L (136-145) L 06/14/25 05:02 Potassium 3.7 mmol/L (3.5-5.1) 06/14/25 05:02 Chloride 100 mmol/L (98-107) 06/14/25 05:02 Carbon Dioxide 18 mmol/L (21-32) L 06/14/25 05:02 Anion Gap 14 (3-11) H 06/14/25 05:02 BUN 44 mg/dl (6-23) H 06/14/25 05:02 Creatinine 1.28 mg/dl (0.6-1.4) 06/14/25 05:02 Est Cr Clr Drug Dosing Not Reportable 06/14/25 05:02 eGFR 59.84 06/14/25 05:02 BUN/Creatinine Ratio 34.4 (10-20) H 06/14/25 05:02 Glucose 181 mg/dl (70-99(Fasting)) H 06/14/25 05:02 Calcium 10.8 mg/dl (8.6-10.3) H 06/14/25 05:02 Magnesium 2.2 mg/dl (1.7-2.4) 06/14/25 05:02 Total Bilirubin 1.2 mg/dl (0.2-1.0) H 06/14/25 05:02 AST 36 U/L (13-39) 06/14/25 05:02 ALT 19 U/L (7-52) 06/14/25 05:02 Alkaline Phosphatase 93 U/L (34-104) 06/14/25 05:02 Troponin I High Sens 73.1 pg/ml (0-20) H* 06/14/25 05:02 Total Protein 8.8 gm/dl (6.0-8.3) H 06/14/25 05:02 Albumin 4.7 gm/dl (3.4-5.0) 06/14/25 05:02 Globulin 4.1 gm/dl (2.5-4.0) H 06/14/25 05:02 Albumin/Globulin Ratio 1.1 (0.9-2) 06/14/25 05:02 Lipase 25 U/L (11-82) 06/14/25 05:02 Code Status & VTE Plan Code Status Full code VTE Prophylaxis Plan VTE Prophylaxis will be ordered: Yes PG Care Time/CCT Total # of Minutes Spent Total Time Spent with Patient: Total time spent is greater than 50% in coordination of care (as documented) at patient's floor/unit and/or counseling patient: 48 minutes Coding Level of Care Code 38281 INT INP/OBS CARE 3/75MIN Diagnoses Sinus tachycardia R00.0 NSTEMI (non-ST elevated myocardial infarction) I21.4 Lumbar radiculopathy M54.16 Chronic lumbar pain M54.5; G89.29
--- NOTE | 2025-06-14 07:26 | Billing Data ---
Date of Service June 14, 2025 Coding Level of Care Code 07630 CRITICAL CARE
[2025-06-14] MEDS: FAMOTIDINE 20MG IV PUSH 20 MG/5 ML SYR IV STA (09:03)
[2025-06-14] MEDS: NSS + 20MEQ KCL 20 MEQ/1,000 ML BAG IV SCH (09:05)
[2025-06-14 09:15] LABS: Appearance Urine Clear (Clear); Bacteria Urine Automated None Seen (None Seen); Cast Urine Automated >20 /lpf (0-2); Glucose Urine UA Negative (Negative); WBC Urine Automated 0-5 /hpf (0-5)
[2025-06-14] MEDS: PROCHLORPERAZINE 10 MG in SYRINGE 8 ML IV PRN (09:22)
[2025-06-14] MEDS: HYDROmorphone INJ 1 MG/ML SYRINGE IV PRN (09:26)
[2025-06-14 09:45] LABS: Amphetamines+Metham, Urine Neg (Neg); MDMA (Ecstacy), Urine Neg (Neg); Marijuana, Urine Pos (Neg)
[2025-06-14] MEDS: OPTIRAY 320 100ml IV ONE (09:51)
--- NOTE | 2025-06-14 10:51 | CT Scan Report ---
ABDOMEN AND PELVIS CT WITH IV CONTRAST CT DOSE: 875.03 mGy.cm HISTORY: Acute generalized abdominal pain generalized abd pain, n/v TECHNIQUE: Multiaxial CT images of the abdomen and pelvis were performed following the IV administrat ion of 94 cc of Optiray, A dose lowering technique was utilized adhering to the principles of ALARA. COMPARISON STUDY: 03/21/2021 FINDINGS: Moderate to extensive coronary artery calcifications. Pulmonary emphysema with mild bibasil ar atelectasis. No pneumatosis or pneumoperitoneum. Unremarkable spleen. Calcifications involving the uncinate process pancreas redemonstrated. Bilateral nodular thickening of the adrenal glands is stab le measuring up to 1.5 cm bilaterally. There are a few scattered cysts again noted within the liver w hich are similar to prior. Patent portal vein. Cholecystectomy. Unchanged likely postsurgical biliary ductal dilation. Cortical thinning of the kidneys. No hydronephrosis. Left-sided renal sinus cysts are again noted. Th ere are a few small parenchymal cysts of the kidneys also again seen. Urinary bladder wall thickening with partial distention. Mildly enlarged prostate. Atherosclerosis of the aorta and branch vessels. No lymphadenopathy. Small hiatal hernia. No bowel obstruction or bowel wall thickening. Colonic diverticulosis without ac [place] diverticulitis. No ascites or mesenteric inflammation. Unremarkable soft tissues. Lumbar levoscol iosis. No acute fracture. IMPRESSION: 1. No acute intra-abdominal or intrapelvic abnormality identified. 2. No bowel obstruction or bowel wall thickening. 3. Colonic diverticulosis. 4. Small hiatal hernia. 5. Chronic findings as above. ACT 112: Negative or not required by law. The above report was generated using voice recognition software. It may contain grammatical, syntax o r spelling errors. Electronically signed by: Christiano Ruiz M.D. 06/14/2025 10:49 AM
[2025-06-14] MEDS: dexAMETHasone 6 MG in SYRINGE 0 ML IV SCH (11:12)
[2025-06-14] MEDS: ASPIRIN 81 MG CHEW PO STA (12:07)
[2025-06-14] MEDS: PROMETHAZINE 25 MG/51 ML BAG IV STA (14:06)
--- NOTE | 2025-06-14 16:48 | XCELERA ---
[id number]
--- NOTE | 2025-06-14 16:49 | Cardiology Consultation ---
Date of Consultation June 14, 2025 Assessment & Plan (1) Elevated troponin: (2) Coronary artery calcification: (3) Sinus tachycardia: (4) Hyperlipidemia: (5) Cardiomyopathy: Plan ASSESSMENT/PLAN: 1. Elevated troponin: He did not present with acute coronary syndrome. His abdominal complaints were felt by hospitalist service secondary to cannabinoid hyperemesis syndrome. Likely demand ischemia in the setting of hypovolemia from days of nausea and vomiting with evidence of hemoconcentration and azotemic labs. Given coronary artery calcifications, suggested stress test at some point. If done while hospitalized, would consider myocardial perfusion study but he prefers to have any evaluation done in the outpatient setting so as not to prolong his hospital stay. No angina. 2. Coronary artery calcifications: Recommend aspirin 81 mg daily if no contraindication. Recommend high intensity statin therapy. Risk factor modification. Myocardial perfusion study in the outpatient setting. Echo images were technically difficult. 3. Mild cardiomyopathy: LV systolic function appeared similar to 06/13/2016 Limited study. He appears euvolemic currently. Consider metoprolol succinate 25 mg daily. Myocardial perfusion study as above. 4. Dyslipidemia: Not on treatment in the outpatient setting. Given coronary artery calcifications, recommend high intensity statin therapy such as atorvastatin 40 or 80 mg daily. 5. Marijuana use: Refrain from using marijuana. 6. Tachycardia: He was noted to be in sinus tachycardia initially on ECG, in the setting of nausea, vomiting, and hypovolemia. Heart rate has since normalized. No specific treatment necessary as this was likely physiologic. 7. Disposition: Cardiology will sign off. He can follow-up in the outpatient setting. He prefers that any further cardiac testing be performed in the outpatient setting. Patient care communicated with Dr. Gil with the primary hospitalist service. Thank you for allowing me to participate in the care of your patient. Please call for any other questions or concerns. Sincerely, Mukund Collins M.D. History of Present Illness Reason for Consultation: "Sinus tachycardia, NSTEMI" Requesting Physician: Nimesh Troy MD Attending Physician: Nimesh Troy MD History of Present Illness Mr. Baker is a pleasant 69-year-old gentleman with history significant for dyslipidemia, coronary artery calcifications, back pain, and esophageal dysmotility s/p esophageal dilation 2014. He was hospitalized on 06/14/2025 after presenting to the ER with intractable nausea, vomiting, and abdominal pain. He admits that he had been using marijuana on a daily basis for the past 3 months or so. He stopped using marijuana approximately 1 week ago. On 06/11/2025, he developed nausea, vomiting, and abdominal pain. He was unable to keep anything down. He denies hematemesis, diarrhea, melena, hematochezia, or hematuria. He believes he was very dehydrated. On presentation, he was noted to have elevated high-sensitivity troponin level of 73 and peaked at 84. He denies any chest pain or shortness of breath. He states that up until 2 months ago he was very active and would walk several miles to go [place] and denied exertional symptoms such as chest pain or shortness of breath. He remains active and can climb stairs and go grocery shopping without chest pain or shortness of breath. He has been following with orthopedics for left leg Nuñez's cyst. He is feeling much better and denies any further nausea or vomiting. Review of systems: As above. Family history: No known premature CAD. Social history: Quit smoking tobacco products years ago. Smoking marijuana for the past 3 months as noted above. Occasional alcohol. Lives at home with his . Previously with 2 children and grandchildren. He is estranged from his 2 children and grandchildren. His daughter is a physician but he has not seen her in approximately 20 years or more. He was unaccompanied. Allergies Allergy/AdvReac Type Severity Reaction Status Date / Time No Known Allergies Allergy Verified 06/22/24 14:27 Home Medications Medication Instructions Recorded Confirmed Type multivitamin 1 tab PO HS 03/21/21 06/14/25 History ginkgo biloba leaf extract 120 mg 120 mg PO DAILY 05/30/24 06/14/25 History capsule magnesium aspart,citrate,oxide 0 mg PO UD 05/30/24 06/14/25 History omega-3 fatty acids 500 mg capsule 500 mg PO DAILY 05/30/24 06/14/25 History potassium citrate 99 mg capsule 0 mg PO UD 05/30/24 06/14/25 History citalopram 20 mg tablet 20 mg PO QAM #90 tabs 06/20/24 06/14/25 Rx gabapentin 300 mg capsule 300 mg PO TID 06/14/25 06/14/25 History Problem List (Updated 06/14/25 @ 18:46 by Narendra Collins MD) Cardiomyopathy Elevated troponin NSTEMI (non-ST elevated myocardial infarction) Sinus tachycardia Colon cancer screening Encounter for pre-operative examination Coronary artery calcification Hyperlipidemia Chronic lumbar pain (Chronic) Lumbar radiculopathy (Chronic) Chest pain Chronic abdominal pain (Chronic) Depression (Chronic) Sacroiliitis Esophageal dysmotility (Chronic) "s/p dilation 02/2015" Septic arthritis (Chronic) "right knee, completed Vanco therpay, s/p antibiotic spacer placement " Hx MRSA infection (Chronic) 2014 [facility] Patient History Medical History Anxiety Elevated cholesterol Scoliosis Osteoarthritis Surgical History History of repair of rotator cuff right Hx of colonoscopy Hx of abdominal surgery repair of torn diaphragm Hx of laparoscopy ingrid fundoplication History of total knee replacement RT (+REVISION) History of lumbar surgery no hardware History of knee surgery right/left History of esophagogastroduodenoscopy (EGD) History of cholecystectomy History of tooth extraction S/P revision of total knee right S/P repair of paraesophageal hernia "02/2015" Family History Brother Family history of diabetes mellitus Other No family history of adverse response to anesthesia Denies family history of Ovarian cancer Prostate cancer Myocardial infarction Breast cancer Colorectal cancer Social History Smoking Status: Never smoker Tobacco Type: Cigarettes Age Started Using Tobacco: 19; Age Quit Using Tobacco: 50; packs per day: 1; Second Hand Exposure: Yes (as a child); Do You Dip or Chew Tobacco: Yes; Hx Alcohol Use: Yes Alcohol type: beer Alcohol Intake Frequency: Monthly or Less Hx Substance Use: Yes Last Used Substance: Days (ago) Preferred Language: Sinhala Communication Ability: Effective Visual Impairment: No Limitations Hearing Ability: Normal Inspecting And Testing Lead Hand Required: No Beliefs That Will Affect Care: None marital status: Current Living Situation: Spouse Current Living Situation Comment: live at home with current occupational status: retired 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 Alert and oriented. HEENT: Anicteric sclera. Neck: No JVD. No bruits. Normal carotid upstrokes bilaterally. Cardiac: Regular. Normal S1-S2. No murmurs, rubs, or gallops. Pulmonary: Decreased breath sounds, but otherwise clear to auscultation bilaterally without wheezes, rales, or rhonchi. Abdomen: Soft, nontender, nondistended, with normoactive bowel sounds. No bruits noted. Extremities: 2+ radial pulses bilaterally. 2+ posterior tibialis pulses bilaterally. No edema or cyanosis. Results & Data Vital Signs (Past 12 Hours) Vital Signs Temp Pulse Pulse Resp BP BP Pulse Ox 06/14/25 14:45 37 C 69 14 128/77 96 06/14/25 14:15 72 22 130/83 94 06/14/25 13:02 67 13 120/82 98 06/14/25 12:30 62 14 127/79 95 06/14/25 12:00 63 16 137/88 97 06/14/25 11:30 69 19 122/77 92 06/14/25 10:04 125/77 06/14/25 09:33 88 18 93 06/14/25 09:31 131/94 06/14/25 09:24 108 H 06/14/25 09:00 82 12 184/117 H 96 06/14/25 08:00 75 19 145/83 H 95 06/14/25 07:36 76 17 93 06/14/25 07:30 125/84 06/14/25 07:09 81 20 90 06/14/25 07:00 126/76 06/14/25 06:33 99 H 20 161/98 H 93 06/14/25 05:09 129 H 06/14/25 04:54 36.5 C 122 H 28 H 156/83 H 94 O2 Del Method O2 Flow Rate 06/14/25 14:45 Nasal Cannula 4 06/14/25 14:15 Nasal Cannula 2 06/14/25 13:02 06/14/25 12:30 06/14/25 12:00 06/14/25 11:30 06/14/25 10:04 06/14/25 09:33 Nasal Cannula 2 06/14/25 09:31 06/14/25 09:24 06/14/25 09:00 Nasal Cannula 2 06/14/25 08:00 06/14/25 07:36 06/14/25 07:30 06/14/25 07:09 06/14/25 07:00 06/14/25 06:33 Room Air 06/14/25 05:09 06/14/25 04:54 Room Air Laboratory Results Laboratory Results - last 24 hr 06/14/25 06/14/25 06/14/25 05:02 08:46 08:51 WBC 16.26 H RBC 6.03 Hgb 18.2 H Hct 51.8 MCV 85.9 MCH 30.2 MCHC 35.1 RDW Std Deviation 42.3 RDW Coeff of Richard 13.6 Plt Count 345 MPV 9.5 Immature Gran % (Auto) 0.6 Neut % (Auto) 74.3 Lymph % (Auto) 14.9 [place] % (Auto) 9.7 Eos % (Auto) 0.1 Baso % (Auto) 0.4 Neut # (Auto) 12.10 H Lymph # (Auto) 2.42 [place] # (Auto) 1.57 H Eos # (Auto) 0.02 Baso # (Auto) 0.06 Immature Gran # (Auto) 0.09 PT 12.0 INR 1.1 APTT 26 PTT Ratio 1.0 Sodium 132 L Potassium 3.7 Chloride 100 Carbon Dioxide 18 L Anion Gap 14 H BUN 44 H Creatinine 1.28 Est Cr Clr Drug Dosing Not Reportable eGFR 59.84 BUN/Creatinine Ratio 34.4 H Glucose 181 H Calcium 10.8 H Magnesium 2.2 Total Bilirubin 1.2 H AST 36 ALT 19 Alkaline Phosphatase 93 Troponin I High Sens 73.1 H* 75.3 H* Total Protein 8.8 H Albumin 4.7 Globulin 4.1 H Albumin/Globulin Ratio 1.1 Lipase 25 Urine Color Yellow Urine Appearance Clear Urine pH 5.5 Ur Specific Tucker 1.032 H Urine Protein 2+ H Urine Glucose (UA) Negative Urine Ketones 1+ H Urine Blood 2+ H Urine Nitrite Negative Urine Bilirubin Negative Urine Urobilinogen Negative Ur Leukocyte Esterase Negative Urine WBC (Auto) 0-5 Urine RBC (Auto) 6-10 H U Hyaline Cast (Auto) >20 H U Epithel Cells (Auto) 3-5 H Urine Bacteria (Auto) None Seen Hyaline Casts Present A Granular Casts Present A Urine Mucus Present A Urine Comment Urine Opiates Screen Pos H U Codeine Confrm GC/MS Pending Ur Morphine (GC/MS) Pending Ur Hydrocodone (GC/MS) Pending Ur Norhydrocodone Pending Ur Noroxycodone Pending Urine Oxycodone (GC/MS) Pending U Oxymorphone GC/MS Pending Ur Methadone, Qual Neg Ur Hydromorphone (GC/MS) Pending Urine Fentanyl Screen Neg Urine Barbiturates Neg Ur Phencyclidine (PCP) Neg U Amphetamin/Meth Scrn Neg MDMA (Ecstasy) Screen Neg U Benzodiazepines Scrn Neg Ur Cocaine Metabolite Neg U Marijuana (THC) Screen Pos H U Marijuana THC Carboxy Pending Drug Screen Comment Pending 06/14/25 06/14/25 10:47 16:10 WBC RBC Hgb Hct MCV MCH MCHC RDW Std Deviation RDW Coeff of Richard Plt Count MPV Immature Gran % (Auto) Neut % (Auto) Lymph % (Auto) [place] % (Auto) Eos % (Auto) Baso % (Auto) Neut # (Auto) Lymph # (Auto) [place] # (Auto) Eos # (Auto) Baso # (Auto) Immature Gran # (Auto) PT INR APTT PTT Ratio Sodium 137 Potassium 4.1 Chloride 105 Carbon Dioxide 22 Anion Gap 10 BUN 35 H Creatinine 0.81 D Est Cr Clr Drug Dosing 104.6 eGFR 94.26 BUN/Creatinine Ratio 43.2 H Glucose 126 H Calcium 9.1 Magnesium Total Bilirubin AST ALT Alkaline Phosphatase Troponin I High Sens 84.0 H* 68.7 H* D Total Protein Albumin Globulin Albumin/Globulin Ratio Lipase Urine Color Urine Appearance Urine pH Ur Specific Tucker Urine Protein Urine Glucose (UA) Urine Ketones Urine Blood Urine Nitrite Urine Bilirubin Urine Urobilinogen Ur Leukocyte Esterase Urine WBC (Auto) Urine RBC (Auto) U Hyaline Cast (Auto) U Epithel Cells (Auto) Urine Bacteria (Auto) Hyaline Casts Granular Casts Urine Mucus Urine Comment Urine Opiates Screen U Codeine Confrm GC/MS Ur Morphine (GC/MS) Ur Hydrocodone (GC/MS) Ur Norhydrocodone Ur Noroxycodone Urine Oxycodone (GC/MS) U Oxymorphone GC/MS Ur Methadone, Qual Ur Hydromorphone (GC/MS) Urine Fentanyl Screen Urine Barbiturates Ur Phencyclidine (PCP) U Amphetamin/Meth Scrn MDMA (Ecstasy) Screen U Benzodiazepines Scrn Ur Cocaine Metabolite U Marijuana (THC) Screen U Marijuana THC Carboxy Drug Screen Comment Diagnostic Findings ECHO 06/14/25: 1. Mildly dilated left ventricle with mildly reduced systolic function. EF 45- 50%. Mild global hypokinesis with severe hypokinesis of the basal to mid inferior wall. Moderate concentric left ventricular hypertrophy. 2. Borderline dilated right ventricle with normal systolic function. 3. No significant valvular abnormalities. 4. Normal estimated right ventricular systolic pressure. 5. Technically difficult study, enhanced with IV Definity. 6. Compared to prior limited study on 06/13/2016, LV systolic function is similar, but declined from 01/26/2016 study. Labs reviewed and notable for elevated high-sensitivity troponin peaking at 84, normal potassium, downtrending BUN and creatinine, normal transaminase levels, mild leukocytosis, slightly elevated hemoglobin (new). CT abdomen/pelvis 06/14/2025: Moderate to extensive coronary artery calcifications. Pulmonary emphysema with mild bibasilar atelectasis per radiology. No acute intra-abdominal or intrapelvic abnormality reported. Colonic diverticulosis. Small hiatal hernia. History and physical report reviewed. ECGs personally reviewed: ECG 06/14/2025 at 5:10 AM: Artifact. Sinus tachycardia 129 bpm. RBBB. ECG 06/14/2025 at 5:55 AM: Sinus rhythm with PVCs 90 bpm. RBBB. Possible septal infarct. ECG 06/14/2025 at 11:59 AM: Sinus rhythm 63 bpm. RBBB. Inferior T wave inversion and anterolateral ST/T wave change from previous ECG. Medications Administered Current Inpatient Medications Hydromorphone HCl (Hydromorphone Inj 0.5 Mg/0.5 Ml Syr) 0.5 mg IV Q3H PRN PRN Reason: Moderate Pain (Scale 4, 5, 6) Stop: 06/28/25 06:24 Hydromorphone HCl (Hydromorphone Inj 1 Mg/Ml Syringe) 1 mg IV Q3H PRN PRN Reason: Severe Pain (Scale 7, 8, 9,10) Stop: 06/28/25 06:24 Last Admin: 06/14/25 14:06 Dose: 1 mg Potassium Chloride/Sodium Chloride (Normal Saline W/20 Meq Kcl) 20 meq in 1,000 mls @ 100 mls/hr IV .Q10H KARO Stop: 06/15/25 02:44 Last Admin: 06/14/25 09:05 Dose: 100 mls/hr Acetaminophen (Ofirmev) 1,000 mg in 100 mls @ 400 mls/hr IV Q8H PRN PRN Reason: Pain or Fever Stop: 06/17/25 06:35 Prochlorperazine 10 mg/ (Syringe) 10 mls @ 5 mls/min IV Q6H PRN PRN Reason: Nausea And Vomiting Stop: 07/14/25 06:59 Last Admin: 06/14/25 09:22 Dose: 5 mls/min Lorazepam 0.5 mg/ Syringe 0.5 mls @ 2 mls/min IV Q8H PRN PRN Reason: Anxiety/Agitation Stop: 07/14/25 06:59 Dexamethasone 6 mg/ Syringe 1.5 mls @ 1 mls/min IV Q12H KARO Stop: 07/14/25 07:59 Last Admin: 06/14/25 11:12 Dose: 1 mls/min Pantoprazole Sodium (Protonix) 40 mg in 10 mls @ 5 mls/min IV BID [facility] Stop: 07/14/25 20:59 Multivitamins (Multivitamin Tab) 1 tab PO HS [facility] Stop: 07/14/25 20:59 Naloxone HCl (Naloxone Hcl 0.4 Mg/1 Ml Vial/Carp) 0.1 mg IV Q5M PRN PRN Reason: Oversedation/Resp Depression Stop: 07/14/25 06:24 Ondansetron HCl (Ondansetron Inj 2 Mg/Ml 2 Ml Vial) 4 mg IV Q6H PRN PRN Reason: NAUSEA/VOMITING Stop: 07/14/25 06:35 PG Care Time/CCT Total # of Minutes Spent Total Time Spent with Patient: Total time spent is greater than 50% in coordination of care (as documented) at patient's floor/unit and/or counseling patient: Coding Level of Care Code 12224 INT INP/OBS CARE 375MIN Diagnoses Elevated troponin R79.89 Coronary artery calcification I25.10; I25.84 Sinus tachycardia R00.0 Hyperlipidemia E78.5 Cardiomyopathy I42.9
[2025-06-14 17:02] LABS: Anion Gap 10.0 (3-11); Blood Urea Nitrogen 35.0 mg/dl (6-23); Calcium 9.1 mg/dl (8.6-10.3); Carbon Dioxide 22.0 mmol/L (21-32); Chloride 105.0 mmol/L (98-107); Creatinine Clr Calc Pharmacy 104.6 ml/min; Glucose 126.0 mg/dl (70-99(Fasting)); Potassium 4.1 mmol/L (3.5-5.1); Sodium 137.0 mmol/L (136-145)
[2025-06-14] MEDS: PANTOprazole 40 MG/10 ML SYR IV SCH (20:37)
[2025-06-14] MEDS: MULTIVITAMIN TAB PO SCH (20:38)
[2025-06-15] MEDS: ONDANSETRON INJ 2 MG/ML 2 ML VIAL IV PRN (06:04)
[2025-06-15 09:03] LABS: Hematocrit (blood only) 46.3 % (42.0-52.0); Hemoglobin 16.4 g/dl (14.0-18.0); Immature Granulocytes # (auto) 0.06 K/uL (0.01-0.20); Immature Granulocytes % (auto) 0.5 %; Mean Corpuscular Hemoglobin 31.5 pg (25.0-34.0); Mean Corpuscular Volume 89.0 fL (80.0-100.0); Platelet Count 254 K/uL (130-400); RDW Standard Deviation 43.7 fL (36.4-46.3); Red Blood Count 5.20 M/uL (4.70-6.10); White Blood Count 11.75 K/ul (4.8-10.8)
[2025-06-15] MEDS: PROMETHAZINE 25 MG/51 ML BAG IV STA (09:16)
[2025-06-15 09:22] LABS: Alanine Aminotransferase 21 U/L (7-52); Albumin Globulin Ratio 1.1 (0.9-2); Albumin Level 3.6 gm/dl (3.4-5.0); Alkaline Phosphatase 68 U/L (34-104); Anion Gap 8 (3-11); Bilirubin,Total 1.0 mg/dl (0.2-1.0); Blood Urea Nitrogen 30 mg/dl (6-23); Calcium 8.8 mg/dl (8.6-10.3); Carbon Dioxide 25 mmol/L (21-32); Chloride 104 mmol/L (98-107); Creatinine Clr Calc Pharmacy 108.1 ml/min; Globulin 3.4 gm/dl (2.5-4.0); Glucose 120 mg/dl (70-99(Fasting)); Magnesium 2.1 mg/dl (1.7-2.4); Potassium 3.7 mmol/L (3.5-5.1); Sodium 137 mmol/L (136-145); Total Protein 7.0 gm/dl (6.0-8.3)
[2025-06-15 09:31] LABS: INR 1.1 (0.9-1.1); Partial Thromboplastin Time 26 Seconds (21-31); Prothrombin Time 12.0 Seconds (9.0-12.0)
[2025-06-15 09:39] LABS: Lipase 28 U/L (11-82)
[2025-06-15] MEDS: DICYCLOMINE HCL 10 MG CAP PO ONE (10:28)
[2025-06-15] MEDS: ASPIRIN 81 MG ECTAB PO SCH (10:28)
--- NOTE | 2025-06-15 16:29 | Hospitalist Progress Note ---
Date of Service June 15, 2025 Assessment & Plan (1) Nausea and vomiting: (2) Abdominal pain: (3) Sinus tachycardia: (4) NSTEMI (non-ST elevated myocardial infarction): (5) Lumbar radiculopathy: (6) Chronic lumbar pain: (7) Elevated troponin: (8) LV dysfunction: (9) Marijuana use: Plan 69yo male with h/o hyperlipidemia, coronary artery calcifications, chronic lumbar pain, lumbar radiculopathy, history of small bowel obstruction, history of pancreatitis, depression, esophageal dysmotility, septic arthritis, and history of MRSA infection. Recent issues with his lumbar radiculopathy & left knee Nuñez's cyst (which was aspirated by [facility] in the office). Smoking THC heavily x 6 months then abruptly stopped last week. Presented to the emergency department with intractable nausea, vomiting and abdominal discomfort for the past 3 days. #abd pain/nausea/emesis - -concern for THC hyperemesis syndrome -CT a/p without acute findings -no evidence of any infectious process on labs or imaging -hot showers helps with symptoms which is quite typical with THC hyperemesis syndrome -he can cont with the showers as desired -if this is indeed THC hyperemesis syndrome the symptoms can be refractory to typical anti-emetics -may need to use haldol or droperidol -watch QTc carefully on EKG & tele -cont PPI -if symptoms can't be controlled then consider formal GI consult to rule out PUD, gastritis, etc. #sinus tachycardia - -at admission - resolved -etiology uncertain - due to pain? other? #elevated troponin / type 2 ME / abnormal echo / abnormal EKG - [place] [facility] [place] -outpatient stress test advised; concern for underlying/undiagnosed CAD -asa 81mg daily -last lipid profile was in 2023 with LDL low 100s; consider recheck while here #severe lumbar back pain and lumbar radiculopathy - -s/p caudal epidural injection by Dr Junior recently, [facility] -cont IV dexamethasone - this is helping his radicular symptoms -will wean to 4mg BID starting tomorrow -limit the heavy narcotics; try to wean IV dilaudid -tylenol 1gm TID -oxycodone prn mild/mod pain; IV dilaudid for severe pain only He has been seeing Dr. Junior from orthopedics with injections. -resume gabapentin 300mg TID -resume his celexa 20mg to prevent SSRI withdrawal #DVT proph - -lovenox daily Admission and Anticipated Discharge Date Admission Date: June 14, 2025 Subjective tele stable overnight no cp, no dyspnea any attempt to eat typically leads to nausea post-meal and some abd pain the pain is "everywhere" in the abdomen no BM last 24 hours no vomiting despite the nausea continues to report that hot showers help all the GI symptoms back pain/leg radicular pain has been MUCH better since admission Review of Systems Review of Systems: pulm - no dyspnea, no BELL, no cough GI - no vomiting CV - no cp gen - no fevers Physical Exam Physical Exam: gen - NAD, looks well, lying in bed watching TV mouth - MM slightly dry neck - no JVD heart - RRR, s1 s2, no murmur lungs - CTA b/l, no rales abd - soft, NT, ND, BS+, no HSM, no peritoneal signs ext - no edema, pulses 2+ b/l psych - a/o x 3 Results & Data Results & Data Vital Signs (Past 12 Hours) Vital Signs Temp Pulse Pulse Resp BP Pulse Ox O2 Del Method 06/15/25 15:29 36.6 C 68 16 149/76 H 97 Room Air 06/15/25 14:51 71 06/15/25 12:21 37.0 C 72 18 182/86 H 95 Room Air 06/15/25 07:56 36.6 C 65 18 169/52 H 96 Room Air Laboratory Results Laboratory Results - last 48 hr 06/14/25 06/14/25 06/15/25 10:47 16:10 08:39 WBC 11.75 H RBC 5.20 Hgb 16.4 Hct 46.3 MCV 89.0 MCH 31.5 MCHC 35.4 RDW Std Deviation 43.7 RDW Coeff of Richard 13.3 Plt Count 254 MPV 9.7 Immature Gran % (Auto) 0.5 Neut % (Auto) 82.2 Lymph % (Auto) 9.7 [place] % (Auto) 7.4 Eos % (Auto) 0.0 Baso % (Auto) 0.2 Neut # (Auto) 9.66 H Lymph # (Auto) 1.14 L [place] # (Auto) 0.87 H Eos # (Auto) 0.00 Baso # (Auto) 0.02 Immature Gran # (Auto) 0.06 PT 12.0 INR 1.1 APTT 26 PTT Ratio 1.0 Sodium 137 137 Potassium 4.1 3.7 Chloride 105 104 Carbon Dioxide 22 25 Anion Gap 10 8 BUN 35 H 30 H Creatinine 0.81 D 0.79 Est Cr Clr Drug Dosing 104.6 108.1 eGFR 94.26 94.98 BUN/Creatinine Ratio 43.2 H 38.0 H Glucose 126 H 120 H Calcium 9.1 8.8 Magnesium 2.1 Total Bilirubin 1.0 AST 28 ALT 21 Alkaline Phosphatase 68 Troponin I High Sens 84.0 H* 68.7 H* D 48.9 H D C-Reactive Protein < 0.50 Total Protein 7.0 D Albumin 3.6 Globulin 3.4 Albumin/Globulin Ratio 1.1 Lipase 28 Diagnostic Findings echo: EF 45-50% global hypokinesis with severe basal to mid inferior wall hypokinesis normal valve function PG Care Time/CCT Total # of Minutes Spent Total Time Spent with Patient: Total time spent is greater than 50% in coordination of care (as documented) at patient's floor/unit and/or counseling patient: Coding Level of Care Code 42912 SUB INP/OBS CARE 3/50MIN Diagnoses Nausea and vomiting R11.2 Abdominal pain R10.9 Sinus tachycardia R00.0 NSTEMI (non-ST elevated myocardial infarction) I21.4 Lumbar radiculopathy M54.16 Chronic lumbar pain M54.5; G89.29 Elevated troponin R79.89 LV dysfunction I51.9 Marijuana use F12.90
[2025-06-15] MEDS: NSS + 20MEQ KCL 20 MEQ/1,000 ML BAG IV SCH (17:45)
[2025-06-15] MEDS: ACETAMINOPHEN 500 MG TAB PO SCH (22:45)
[2025-06-16] MEDS: LORazepam Inj 0.5 MG in SYRINGE 0.25 ML IV PRN (01:45)
--- NOTE | 2025-06-16 06:15 | Electrocardiogram Report ---
Test Reason : Blood Pressure : */* mmHG Vent. Rate : 129 BPM Atrial Rate : 129 BPM P-R Int : 138 ms QRS Dur : 130 ms QT Int : 386 ms P-R-T Axes : 69 -81 77 degrees QTcB Int : 565 ms Poor data quality, interpretation may be adversely affected Sinus tachycardia Biatrial enlargement Left axis deviation Right bundle branch block Abnormal ECG When compared with ECG of 21-Mar-2021 19:53, Vent. rate has increased by 65 bpm Confirmed by Narendra Collins ([id number]) on 06/16/2025 6:15:23 AM Referred By: REFERRED SELF Confirmed By: Narendra Collins
--- NOTE | 2025-06-16 06:16 | Electrocardiogram Report ---
Test Reason : Blood Pressure : */* mmHG Vent. Rate : 90 BPM Atrial Rate : 90 BPM P-R Int : 136 ms QRS Dur : 148 ms QT Int : 408 ms P-R-T Axes : 73 -75 64 degrees QTcB Int : 499 ms Sinus rhythm with occasional Premature ventricular complexes Possible Left atrial enlargement Left axis deviation Right bundle branch block Septal infarct (cited on or before 21-Mar-2021) Abnormal ECG When compared with ECG of 14-Jun-2025 05:10, Premature ventricular complexes are now Present Confirmed by Narendra Collins ([id number]) on 06/16/2025 6:16:07 AM Referred By: REFERRED SELF Confirmed By: Narendra Collins
--- NOTE | 2025-06-16 06:17 | Electrocardiogram Report ---
Test Reason : Blood Pressure : */* mmHG Vent. Rate : 54 BPM Atrial Rate : 54 BPM P-R Int : 150 ms QRS Dur : 146 ms QT Int : 484 ms P-R-T Axes : -71 -68 -75 degrees QTcB Int : 458 ms Unusual P axis, possible ectopic atrial bradycardia Right bundle branch block Left anterior fascicular block Bifascicular block Septal infarct , age undetermined T wave abnormality, consider inferior ischemia Abnormal ECG When compared with ECG of 14-Jun-2025 11:59, Ectopic atrial rhythm has replaced Sinus rhythm Septal infarct is now Present T wave inversion no longer evident in Anterior leads Confirmed by Narendra Collins ([id number]) on 06/16/2025 6:17:25 AM Referred By: REFERRED SELF Confirmed By: Narendra Collins
--- NOTE | 2025-06-16 06:17 | Electrocardiogram Report ---
Test Reason : Blood Pressure : */* mmHG Vent. Rate : 63 BPM Atrial Rate : 63 BPM P-R Int : 152 ms QRS Dur : 154 ms QT Int : 484 ms P-R-T Axes : 60 -61 -41 degrees QTcB Int : 495 ms Normal sinus rhythm Right bundle branch block Left anterior fascicular block Bifascicular block T wave abnormality, consider inferior ischemia Abnormal ECG When compared with ECG of 14-Jun-2025 05:55, Premature ventricular complexes are no longer Present T wave inversion now evident in Inferior leads T wave inversion more evident in Anterior leads Confirmed by Narendra Collins ([id number]) on 06/16/2025 6:16:43 AM Referred By: REFERRED SELF Confirmed By: Narendra Collins
[2025-06-16 07:40] LABS: Anion Gap 4.0 (3-11); Blood Urea Nitrogen 27.0 mg/dl (6-23); Calcium 8.5 mg/dl (8.6-10.3); Carbon Dioxide 26.0 mmol/L (21-32); Chloride 109.0 mmol/L (98-107); Creatinine Clr Calc Pharmacy 110.9 ml/min; Glucose 111.0 mg/dl (70-99(Fasting)); Potassium 4.5 mmol/L (3.5-5.1); Sodium 139.0 mmol/L (136-145)
[2025-06-16] MEDS: ENOXAPARIN INJ 40 MG/0.4 ML SYR SQ SCH (08:17)
[2025-06-16] MEDS: dexAMETHasone 4 MG in SYRINGE 0 ML IV SCH (08:17)
[2025-06-16] MEDS: HYDROmorphone INJ 0.5 MG/0.5 ML SYR IV PRN (09:30)
[2025-06-16] MEDS: SODIUM CHLORIDE 0.9% 1,000 ML IV SCH (10:28)
[2025-06-16] MEDS: FAMOTIDINE 20MG IV PUSH 20 MG/5 ML SYR IV STA (10:28)
[2025-06-16] MEDS: CITALOPRAM 20 MG TAB PO SCH (10:35)
[2025-06-16] MEDS: DICYCLOMINE HCL 10 MG CAP PO ONE (10:36)
--- NOTE | 2025-06-16 10:40 | Gastrointestinal Consultation ---
Date of Consultation June 16, 2025 Assessment & Plan (1) Marijuana use: (2) Nausea and vomiting: (3) Abdominal pain: Plan 69yowm with h/o CAD, NSTEMI, Pancreatitis, SBO, Depression, DL, marijuana use, esophageal dysmotility is seen today on inpatient GI rounds for refractory abdominal pain with eating. (1) Abdominal pain with N/V - CT abd/pelvis 06/14/25 negative. Lipase negative 06/14/25. CBC 06/15 with leukocytosis of 11k/ul. No anemia. No major concerns on BMP on 06/16/25. - Presentation and improvement with warm showers is consistent with cannabinoid hyperemesis syndrome. Last vomiting a few days ago. Primarily struggling with abdominal pain at this time. - Agree with ongoing treatment for Cannabinoid Hyperemesis syndrome as ordered by primary team with Haldol IV (first line), Lorazepam (second line) and Capsaicin cream on abdomen (Adjunct). - If these fail then can treat with a single dose of Aprepitant. - We'll obtain a stat KUB. - If this is negative then we'll add on for EGD to r/o mucosal disease. Patent agreeable to proceed. - Thank you for allowing us to participate in the care of this patient. Please call with any acute changes, questions or concerns. Please see addendum below with additional recommendation from my supervising physician. Over 60 minutes was spent in chart review, exam and documentation on date of service. Supervising Physician Co-Signing Physician Notes I personally saw and examined the patient. I have reviewed the chart and agree with the documentation provided by the ICT SECURITY SPECIALIST including discussion about the assessment, treatment and plan. Briefly, 69yowm with h/o CAD, NSTEMI, Pancreatitis, SBO, Depression, DL, marijuana use, esophageal dysmotility is seen today on inpatient GI rounds for refractory abdominal pain with eating. Symptoms started 1 week ago. This was proceeded by stopping marijuana a few days earlier. He denies opiate use to me but was writhing in pain with voluntary guarding when I saw him. Pain was out of proportion to anything on exam. I reviewed the KUB, he appears to be constipated and a question of ileus was raised. He has air throughout the colon and has stool at the rectum. We gave h im 1 mg Dilaudid and his pain went away and his shaking completely went away within 7 minutes. Will do an EGD to rule out mucosal source i.e. ulceration gastritis or esophagitis but are worried about opiate withdrawal or cyclic vomiting syndrome with some secondary gain leading to his symptoms History of Present Illness Reason for Consultation: refractory abdominal pain with eating. Attending Physician: Dwain Gil MD History of Present Illness 69yowm with h/o CAD, NSTEMI, Pancreatitis, SBO, Depression, DL, marijuana use, esophageal dysmotility is seen today on inpatient GI rounds for refractory abdominal pain with eating. Symptoms started 1 week ago. This was proceeded by stopping marijuana a few days earlier. Patient is in significant pain and limited historian. Symptoms increase with eating. He has had some vomiting with his symptoms of food product. Pain is severe and generalized to abdomen. Associated with sweats and rigors. CT abd/pelvis unremarkable. Lipase, Renal and Liver testing unremarkable. Troponins were elevated at 70 and down trended to 48 over the last several days. He underwent Echocardiogram and Cardiology was consulted who recommended that patient follow up with outpatient stress test. The working diagnosis has been Cannabinoid hyperemesis syndrome as patient does note it improves with hot showers. He has been given Compazine and Ondansetron with minimal improvement. He was also given Haldol without significant improvement, which lead to GI consultation. Last BM 06/11 - Not characterized. He denies any dysphagia, diarrhea, hematemesis, melena or hematochezia. He had 1 cup of broth this morning at 630. Family history - Negative for Celiac, IBD or GI cancers. Social History + Tobacco use, Marijuana use. Rare alcohol use. Surgical History - + CCY. + Christiana fundoplication. EGD and Colonoscopy. Colonoscopy 2023 Findings: Two sessile polyps were found in the cecum. The polyps were 2 mm in size. These polyps were removed with a cold biopsy forceps. Resection and retrieval were complete. Estimated blood loss: none. A 3 mm polyp was found in the ascending colon. The polyp was sessile. The polyp was removed with a piecemeal technique using a cold biopsy forceps. Resection and retrieval were complete. Estimated blood loss: none. A 4 mm polyp was found in the transverse colon. The polyp was sessile. The polyp was removed with a hot snare. Resection and retrieval were complete. Estimated blood loss: none. Multiple small and large-mouthed diverticula were found in the sigmoid colon and descending colon. Non-bleeding internal hemorrhoids were found. The hemorrhoids were small. Impression: - Preparation of the colon was fair. - Two 2 mm polyps in the cecum, removed with a cold biopsy forceps. Resected and retrieved. - One 3 mm polyp in the ascending colon, removed piecemeal using a cold biopsy forceps. Resected and retrieved. - One 4 mm polyp in the transverse colon, removed with a hot snare. Resected and retrieved. - Diverticulosis in the sigmoid colon and in the descending colon. - Non-bleeding internal hemorrhoids. Pathology A. Colon, cecal polyp, polypectomy: - Tubular adenoma B. Colon, ascending polyp, polypectomy: - Benign colonic mucosa with a lymphoid aggregate C. Colon, transverse polyp, polypectomy: - Tubular adenoma Allergies Allergy/AdvReac Type Severity Reaction Status Date / Time No Known Allergies Allergy Verified 06/22/24 14:27 Home Medications Medication Instructions Recorded Confirmed Type multivitamin 1 tab PO HS 03/21/21 06/14/25 History ginkgo biloba leaf extract 120 mg 120 mg PO DAILY 05/30/24 06/14/25 History capsule magnesium aspart,citrate,oxide 0 mg PO UD 05/30/24 06/14/25 History omega-3 fatty acids 500 mg capsule 500 mg PO DAILY 05/30/24 06/14/25 History potassium citrate 99 mg capsule 0 mg PO UD 05/30/24 06/14/25 History citalopram 20 mg tablet 20 mg PO QAM #90 tabs 06/20/24 06/14/25 Rx gabapentin 300 mg capsule 300 mg PO TID 06/14/25 06/14/25 History Patient History Medical History Anxiety Elevated cholesterol Scoliosis Osteoarthritis Surgical History History of repair of rotator cuff right Hx of colonoscopy Hx of abdominal surgery repair of torn diaphragm Hx of laparoscopy christiana fundoplication History of total knee replacement RT (+REVISION) History of lumbar surgery no hardware History of knee surgery right/left History of esophagogastroduodenoscopy (EGD) History of cholecystectomy History of tooth extraction S/P revision of total knee right S/P repair of paraesophageal hernia "02/2015" Family History Brother Family history of diabetes mellitus Other No family history of adverse response to anesthesia Denies family history of Ovarian cancer Prostate cancer Myocardial infarction Breast cancer Colorectal cancer Social History Smoking Status: Never smoker Tobacco Type: Cigarettes Age Started Using Tobacco: 19; Age Quit Using Tobacco: 50; packs per day: 1; Second Hand Exposure: Yes (as a child); Do You Dip or Chew Tobacco: Yes; Hx Alcohol Use: Yes Alcohol type: beer Alcohol Intake Frequency: Monthly or Less Hx Substance Use: Yes Last Used Substance: Days (ago) Preferred Language: Georgian Communication Ability: Effective Visual Impairment: No Limitations Hearing Ability: Normal Malter Operator Required: No Beliefs That Will Affect Care: None marital status: Current Living Situation: Spouse Current Living Situation Comment: live at home with current occupational status: retired 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 Getting pain medications from primary service for treatment. Respiratory: Breathing is even, non-labored. Lungs cornejo are clear to auscultation anteriorly. Cardiovascular: Regular Rate and Rhythm, no murmurs, rubs or gallops appreciate d. Gastrointestinal (Abdomen): Normoactive bowel sounds x4. Generalized guarding from discomfort. Musculoskeletal: No peripheral edema. Results & Data Vital Signs (Past 12 Hours) Vital Signs Temp Pulse Resp BP Pulse Ox O2 Del Method 06/16/25 07:51 97.7 F 51 L 19 139/63 94 Room Air 06/16/25 03:12 97.9 F 59 L 18 135/67 95 Room Air 06/15/25 22:41 98.4 F 70 18 150/86 H 95 Room Air PG Care Time/CCT Total # of Minutes Spent Total Time Spent with Patient: Total time spent is greater than 50% in coordination of care (as documented) at patient's floor/unit and/or counseling patient: Coding Level of Care Code 33096 IN/OBS CONSULT LVL 4,60M Diagnoses Marijuana use F12.90 Nausea and vomiting R11.2 Abdominal pain R10.9
--- NOTE | 2025-06-16 11:52 | Anesthesiology Consultation ---
Date of Service June 16, 2025 Assessment & Plan Chart Review Chart Review: Acceptable Risk for Surgery and Patient NOT seen in Pre Admission Testing Consults Requested none History Surgery Operation Date: 06/16/25 16:30 Proposed Procedures p Esophagogastroduodenoscopy Meredith Harper MD Height/Weight Height: 6 ft 5 in Weight: 90.1 kg Allergies Allergy/AdvReac Type Severity Reaction Status Date / Time No Known Allergies Allergy Verified 06/22/24 14:27 Medications Home Medications Medication Instructions Recorded Confirmed Last Taken multivitamin 1 tab PO HS 03/21/21 06/14/25 11/30/23 ginkgo biloba leaf extract 120 mg 120 mg PO DAILY 05/30/24 06/14/25 Unknown capsule magnesium aspart,citrate,oxide 0 mg PO UD 05/30/24 06/14/25 Unknown omega-3 fatty acids 500 mg capsule 500 mg PO DAILY 05/30/24 06/14/25 Unknown potassium citrate 99 mg capsule 0 mg PO UD 05/30/24 06/14/25 Unknown citalopram 20 mg tablet 20 mg PO QAM #90 tabs 06/20/24 06/14/25 06/11/25 gabapentin 300 mg capsule 300 mg PO TID 06/14/25 06/14/25 06/11/25 Active Medications Generic Name Dose Route Start Last Admin Trade Name Mally PRN Reason Stop Dose Admin Acetaminophen 1,000 mg 06/15/25 21:00 06/16/25 08:16 Acetaminophen 500 Mg Tab PO 07/15/25 20:59 1,000 mg TID KARO Administration Aspirin 81 mg 06/15/25 09:00 06/16/25 08:16 Aspirin 81 Mg Ectab PO 07/15/25 08:59 81 mg QAM KARO Administration Citalopram Hydrobromide 20 mg 06/16/25 10:00 06/16/25 10:35 Citalopram 20 Mg Tab PO 07/16/25 09:59 20 mg QAM KARO Administration Enoxaparin Sodium 40 mg 06/16/25 09:00 06/16/25 08:17 Enoxaparin Inj 40 Mg/0.4 Ml Syr SQ 07/16/25 08:59 40 mg QAM KARO Administration Hydromorphone HCl 0.5 mg 06/15/25 20:08 06/16/25 09:30 Hydromorphone Inj 0.5 Mg/0.5 Ml Syr IV 06/28/25 06:24 0.5 mg Q3H PRN Administration Severe Pain (Scale 7, 8, 9,10) Prochlorperazine 10 mg/ 10 mls @ 5 mls/min 06/14/25 07:00 06/15/25 06:18 Syringe IV 07/14/25 06:59 5 mls/min Q6H PRN Administration Nausea And Vomiting Lorazepam 0.5 mg/ Syringe 0.5 mls @ 2 mls/min 06/14/25 07:00 06/16/25 10:26 IV 07/14/25 06:59 2 mls/min Q8H PRN Administration Anxiety/Agitation Dexamethasone 4 mg/ Syringe 1 mls @ 1 mls/min 06/16/25 09:00 06/16/25 08:17 IV 07/16/25 08:59 1 mls/min Q12H KARO Administration Sodium Chloride 1,000 mls @ 75 mls/hr 06/16/25 10:15 06/16/25 10:28 Nss IV 06/19/25 10:14 75 mls/hr .[id number] KARO Administration Multivitamins 1 tab 06/14/25 21:00 06/15/25 19:32 Multivitamin Tab PO 07/14/25 20:59 Not Given HS KARO Ondansetron HCl 4 mg 06/14/25 06:36 06/15/25 12:11 Ondansetron Inj 2 Mg/Ml 2 Ml Vial IV 07/14/25 06:35 4 mg Q6H PRN Administration NAUSEA/VOMITING Pantoprazole Sodium 40 mg 06/16/25 09:00 06/16/25 08:18 Pantoprazole 40 Mg Tab PO 06/19/25 09:01 40 mg DAILY KARO Administration Past Medical History Medical History Anxiety Elevated cholesterol Scoliosis Osteoarthritis Past Family History Family History Brother Family history of diabetes mellitus Other No family history of adverse response to anesthesia Denies family history of Ovarian cancer Prostate cancer Myocardial infarction Breast cancer Colorectal cancer Past Surgical History Surgical History History of repair of rotator cuff right Hx of colonoscopy Hx of abdominal surgery repair of torn diaphragm Hx of laparoscopy ingrid fundoplication History of total knee replacement RT (+REVISION) History of lumbar surgery no hardware History of knee surgery right/left History of esophagogastroduodenoscopy (EGD) History of cholecystectomy History of tooth extraction S/P revision of total knee right S/P repair of paraesophageal hernia "02/2015" Social History Smoking Status: Never smoker tobacco type: cigarettes Do You Dip or Chew Tobacco: Yes Hx Alcohol Use: Yes Alcohol type: beer alcohol intake frequency: a few times a month Hx Substance Use: Yes substance use type: marijuana Last Used Substance: Days (ago) Physical Exam Vital Signs Last Vital Signs Temp 36.3 C L 06/16/25 11:22 Pulse 56 L 06/16/25 11:46 Resp 22 06/16/25 11:22 BP 95/76 L 06/16/25 11:22 Pulse Ox 96 06/16/25 11:22 O2 Del Method Room Air 06/16/25 11:22 O2 Flow Rate 4 06/14/25 15:00 Testing Laboratory Results 06/15/25 08:39 06/16/25 06:39 PT 12.0 Seconds (9.0-12.0) 06/15/25 08:39 INR 1.1 (0.9-1.1) 06/15/25 08:39 APTT 26 Seconds (21-31) 06/15/25 08:39 Urine Color Yellow 06/14/25 08:51 Urine Appearance Clear (Clear) 06/14/25 08:51 Urine pH 5.5 (4.5-7.5) 06/14/25 08:51 Ur Specific [place] 1.032 (1.000-1.030) H 06/14/25 08:51 Urine Protein 2+ (Negative) H 06/14/25 08:51 Urine Glucose (UA) Negative (Negative) 06/14/25 08:51 Urine Ketones 1+ (Negative) H 06/14/25 08:51 Urine Nitrite Negative (Negative) 06/14/25 08:51 Ur Leukocyte Esterase Negative (Negative) 06/14/25 08:51 Urine WBC (Auto) 0-5 /hpf (0-5) 06/14/25 08:51 Urine RBC (Auto) 6-10 /hpf (0-2) H 06/14/25 08:51 U Hyaline Cast (Auto) >20 /lpf (0-2) H 06/14/25 08:51 U Epithel Cells (Auto) 3-5 /hpf (0-2) H 06/14/25 08:51 Urine Bacteria (Auto) None Seen (None Seen) 06/14/25 08:51
--- NOTE | 2025-06-16 12:16 | XRay Report ---
KUB HISTORY: Acute onset abdominal pain Abdominal pain COMPARISON: CT 06/14/2025 FINDINGS: Air-filled loops of large and small bowel with small bowel loops measuring up to 4.7 cm. Co arse calcifications involving the uncinate process pancreas redemonstrated. Cholecystectomy. No kristofer l calculi. No ureteral calculi. No pneumoperitoneum or pneumatosis. Multilevel degenerative changes o f the spine with levoscoliosis. No fracture. IMPRESSION: 1. Air-filled loops of large and small bowel are noted with small bowel dilation. Follow-up recommend ed in order to exclude a developing obstruction. 2. Cholecystectomy. ACT 112: Negative or not required by law. The above report was generated using voice recognition software. It may contain grammatical, syntax o r spelling errors. Electronically signed by: Christiano Ruiz M.D. 06/16/2025 12:15 PM
[2025-06-16] MEDS: HYDROmorphone INJ 0.5 MG/0.5 ML SYR IV STA (12:28)
--- NOTE | 2025-06-16 14:00 | GI REPORT ---
[facility] Patient: SONIA GURROLA : 1955 Sex at : Male Age: 69 Years Procedure: Upper GI endoscopy Date: 06/16/2025 Attending Physician: Cristiano Harper MD Referring MD: Dwain Gil Indications: - Epigastric abdominal pain - Nausea with vomiting Medications: - Monitored Anesthesia Care Complications: - No immediate complications. Estimated Blood Loss: - Estimated blood loss: None. Procedure: - Prior to the procedure, a History and Physical was performed, and patient medications and allergies were reviewed. The patient's tolerance of previous anesthesia was also reviewed. The risks and benefits of the procedure and the sedation options and risks were discussed with the patient. All questions were answered, and informed consent was obtained. Prior Anticoagulants: The patient has taken no anticoagulant or antiplatelet agents. ASA Grade Assessment: III - A patient with severe systemic disease. After reviewing the risks and benefits, the patient was deemed in satisfactory condition to undergo the procedure. - The egd scope was introduced through the mouth and advanced to the third part of the duodenum. - The upper GI endoscopy was accomplished without difficulty. - The patient tolerated the procedure well. Findings: - A small hiatal hernia was present. Prior fundoplication or surgery done given history of diaphragmatic rupture in the past - Diffuse moderate inflammation characterized by erythema and congestion (edema) was found in the gastric antrum and in the gastric body. Biopsies were taken with a cold forceps for histology. - The examined duodenum was normal. Impression: - Small hiatal hernia. - Prior fundoplication or surgery done given history of diaphragmatic rupture in the past - Acute gastritis, characterized by erythema and congestion (edema). Biopsied. - Normal examined duodenum. Recommendation: - Discharge patient to home (ambulatory). - Resume previous diet. - Continue present medications. - Await pathology results. - Return to primary care physician as previously scheduled. - Patient has a contact number available for emergencies. The signs and symptoms of potential delayed complications were discussed with the patient. Return to normal activities tomorrow. Written discharge instructions were provided to the patient. - Start pantoprazole 40 mg twice daily for a week and then once daily use Zofran to control nausea and vomiting. Can add Compazine if needed. No GI findings to explain the uncontrollable pain the patient has had. I reviewed the CT and the x-ray and again nothing is noted except for mild constipation and that is likely from all the narcotics given. I suggest we wean this off. She has no further recommendations we will sign off Procedure Code(s): - 11490, Esophagogastroduodenoscopy, flexible, transoral; with biopsy, single or multiple Diagnosis Code(s): - R10.13, Epigastric pain - R11.2, Nausea with vomiting, unspecified - K44.9, Diaphragmatic hernia without obstruction or gangrene - K29.00, Acute gastritis without bleeding CPT(R) - 202 copyright [employer]. All Rights Reserved. The CPT codes, CCI edits and ICD codes generated are intended as suggestions and were generated based on input data. These codes are preliminary and upon gas line installer review may be revised to meet current compliance and payer requirements. The provider is responsible for the final determination of appropriate codes, and modifiers. Cristiano Harper MD This document has been electronically signed. Note Initiated:06/16/2025 Note Completed:06/16/2025 1:59 PM \\[id number]
--- NOTE | 2025-06-16 14:06 | Anesthesiology Progress Note ---
Date of Service June 16, 2025 Anesthesia Post Procedure Vital Signs Vital Signs: Temp Pulse Pulse Resp BP BP Pulse Ox 06/16/25 14:00 69 16 130/80 93 06/16/25 12:50 82 18 152/86 H 93 06/16/25 12:33 149/95 H 06/16/25 12:32 207/112 H 06/16/25 12:06 36.9 C 99 H 18 151/114 H 93 06/16/25 11:46 56 L 06/16/25 11:22 36.3 C L 102 H 22 95/76 L 96 06/16/25 07:51 36.5 C 51 L 19 139/63 94 06/16/25 03:12 36.6 C 59 L 18 135/67 95 06/15/25 22:41 36.9 C 70 18 150/86 H 95 06/15/25 22:01 73 06/15/25 19:18 37.7 C H 86 20 145/81 H 95 06/15/25 15:29 36.6 C 68 16 149/76 H 97 06/15/25 14:51 71 O2 Del Method 06/16/25 14:00 Room Air 06/16/25 12:50 Room Air 06/16/25 12:33 06/16/25 12:32 06/16/25 12:06 Room Air 06/16/25 11:46 06/16/25 11:22 Room Air 06/16/25 07:51 Room Air 06/16/25 03:12 Room Air 06/15/25 22:41 Room Air 06/15/25 22:01 06/15/25 19:18 Room Air 06/15/25 15:29 Room Air 06/15/25 14:51 Pain Intensity Abdomen: Pain Intensity: 10 Transfer of Care Handoff Completed per policy Notes Mental Status: alert / awake / arousable and participated in evaluation Patient Amnestic to Procedure: Yes Nausea / Vomiting: adequately controlled Pain: adequately controlled Airway Patency, RR, SpO2: stable & adequate BP & HR: stable & adequate Hydration State: stable & adequate Anesthetic Complications: no major complications apparent and Pt Satisfied with anesthetic care
[2025-06-16] MEDS: GABAPENTIN 300 MG CAP PO SCH (15:49)
[2025-06-16] MEDS: SUCRALFATE 1 GM/10 ML UDC PO SCH (17:56)
[2025-06-16] MEDS: PROMETHAZINE 12.5 MG/50.5 ML BAG IV STA (17:58)
[2025-06-16] MEDS: MIDAZOLAM HCL 1 MG/ML 2ML VIAL ONE (18:41)
[2025-06-16] MEDS: LIDOCAINE 2% 2 ML VIAL/AMP(20MG/ML) INFIL ONE (18:41)
[2025-06-16] MEDS: PROPOFOL IV EMULSION 10 MG/ML 20 ML VIAL IV ONE (18:41)
[2025-06-16] MEDS: ONDANSETRON INJ 2 MG/ML 2 ML VIAL ONE (18:41)
--- NOTE | 2025-06-16 19:24 | Electrocardiogram Report ---
Test Reason : Blood Pressure : */* mmHG Vent. Rate : 52 BPM Atrial Rate : 52 BPM P-R Int : 146 ms QRS Dur : 150 ms QT Int : 496 ms P-R-T Axes : 64 -68 -66 degrees QTcB Int : 461 ms Sinus bradycardia Right bundle branch block Left anterior fascicular block Bifascicular block Septal infarct (cited on or before 15-Jun-2025) T wave abnormality, consider inferior ischemia Abnormal ECG When compared with ECG of 15-Jun-2025 03:05, Sinus rhythm has replaced Ectopic atrial rhythm Confirmed by Narendra Collins ([id number]) on 06/16/2025 7:24:14 PM Referred By: REFERRED SELF Confirmed By: Narendra Collins
--- NOTE | 2025-06-16 21:49 | Hospitalist Progress Note ---
Date of Service June 16, 2025 Assessment & Plan (1) Nausea and vomiting: (2) Abdominal pain: (3) Sinus tachycardia: (4) NSTEMI (non-ST elevated myocardial infarction): (5) Lumbar radiculopathy: (6) Chronic lumbar pain: (7) Elevated troponin: (8) LV dysfunction: (9) Marijuana use: Plan 69yo male with h/o hyperlipidemia, coronary artery calcifications, chronic lumbar pain, lumbar radiculopathy, history of small bowel obstruction, history of pancreatitis, depression, esophageal dysmotility, septic arthritis, and history of MRSA infection. Recent issues with his lumbar radiculopathy & left knee Nuñez's cyst (which was aspirated by [facility] in the office). Smoking THC heavily x 6 months then abruptly stopped last week. Presented to the emergency department with intractable nausea, vomiting and abdominal discomfort x 3 days. #abd pain/nausea/emesis - -concern for THC hyperemesis syndrome due to chronic, heavy THC use then abrupt stoppage -CT a/p without acute findings -no evidence of any infectious process on labs or imaging -hot showers have helped with symptoms which is quite typical with THC hyperemesis syndrome -he can cont with the showers as desired -if this is indeed THC hyperemesis syndrome the symptoms can be refractory to typical anti-emetics -may need to use haldol or droperidol -watch QTc carefully on EKG & tele -today, 06/16, I asked GI to see him due to ongoing inability to eat/drink as he develops severe pain/nausea with such -GI saw in consult; advised KUB x-ray, advised EGD -EGD with gastritis only but likely does not explain all symptomatology -cont PPI bid -KUB with small/large bowel dilatation - likely ileus in setting of IV dilaudid use -NO SBO -- he is passing flatus, and there is gas all the way down into the rectum -try to limit narcotic usage -try carafate before eating/drinking along with anti-emetics #gastritis - -PPI twice daily -add carafate QID -pepcid PRN #sinus tachycardia - -at admission - resolved -etiology - suspect pain and anxiety (this am he was very anxious prior to the EGD and had severe tachycardia; ativan given, pain meds given, and tachycardia resolved) -no dysrhythmia seen on tele while here #elevated troponin / type 2 AR / abnormal echo / abnormal EKG - -appreciate [facility] [place] -outpatient stress test advised; concern for underlying/undiagnosed CAD -asa 81mg daily -last lipid profile was in 2023 with LDL low 100s; consider recheck while here #severe lumbar back pain and lumbar radiculopathy - -s/p caudal epidural injection by Dr Vernon jack, [facility] -cont IV dexamethasone - this is helping his radicular symptoms significantly -will wean to 4mg BID starting today, then 4mg daily the next day -limit the heavy narcotics; try to wean IV dilaudid off -tylenol 1gm TID -oxycodone prn mild/mod pain; IV dilaudid for severe pain only -resumed gabapentin 300mg TID -resumed his celexa 20mg to prevent SSRI withdrawal #DVT proph - -lovenox daily cont IV fluids due to restricted dietary intake labs in am care d/w [facility] multiple times today Admission and Anticipated Discharge Date Admission Date: June 14, 2025 Subjective tele stable overnight I saw the patient post-EGD we discussed the results (gastritis only) he was resting comfortably - NO abd pain, NO nausea/emesis passing copious flatus but no stool his low back pain and radicular pain in the legs is doing "great" with IV steroids he is hungry - wants to try taking something by mouth again Review of Systems Review of Systems: CV - no cp, no orthopnea, no edema pulm - no dyspnea or BELL or cough Physical Exam Physical Exam: gen - NAD, looks well, lying in bed watching TV, comfortable mouth - MMM neck - no JVD heart - RRR, s1 s2, no murmur lungs - CTA b/l, no rales abd - soft, NT, ND, BS+, no HSM, no peritoneal signs - fully benign exam ext - no edema, pulses 2+ b/l psych - a/o x 3; not anxious at this time Results & Data Results & Data Vital Signs (Past 12 Hours) Vital Signs Temp Pulse Pulse Resp BP Pulse Ox O2 Del Method 06/16/25 19:50 36.9 C 65 18 165/85 H 96 Room Air 06/16/25 17:30 36.5 C 65 14 148/81 H 96 Room Air 06/16/25 17:00 36.7 C 65 12 143/81 H 96 Room Air 06/16/25 16:20 36.8 C 63 16 153/71 H 95 Room Air 06/16/25 15:35 36.8 C 80 14 150/73 H 95 Room Air 06/16/25 15:20 36.5 C 62 19 163/76 H 94 Room Air 06/16/25 15:05 36.5 C 63 14 162/84 H 94 Room Air 06/16/25 14:36 36.3 C L 60 19 154/80 H 96 Room Air 06/16/25 14:30 63 16 143/85 H 95 Room Air 06/16/25 14:15 62 16 144/84 H 97 Room Air 06/16/25 14:00 69 16 130/80 93 Room Air 06/16/25 12:50 82 18 152/86 H 93 Room Air 06/16/25 12:33 149/95 H 06/16/25 12:32 207/112 H 06/16/25 12:06 36.9 C 99 H 18 151/114 H 93 Room Air 06/16/25 11:46 56 L 06/16/25 11:22 36.3 C L 102 H 22 95/76 L 96 Room Air Laboratory Results Laboratory Results - last 24 hr 06/16/25 06:39 Sodium 139 Potassium 4.5 D Chloride 109 H Carbon Dioxide 26 Anion Gap 4 BUN 27 H Creatinine 0.77 Est Cr Clr Drug Dosing 110.9 eGFR 95.72 BUN/Creatinine Ratio 35.1 H Glucose 111 H Calcium 8.5 L Diagnostic Findings EGD findings - normal esophagus, normal duodenum; stomach with gastritis KUB X-Ray 06/16/25 10:50 KUB HISTORY: Acute onset abdominal pain Abdominal pain COMPARISON: CT 06/14/2025 FINDINGS: Air-filled loops of large and small bowel with small bowel loops measuring up to 4.7 cm. Coarse calcifications involving the uncinate process pancreas redemonstrated. Cholecystectomy. No renal calculi. No ureteral calculi. No pneumoperitoneum or pneumatosis. Multilevel degenerative changes of the spine with levoscoliosis. No fracture. IMPRESSION: 1. Air-filled loops of large and small bowel are noted with small bowel dilation. Follow-up recommended in order to exclude a developing obstruction. 2. Cholecystectomy. ACT 112: Negative or not required by law. The above report was generated using voice recognition software. It may contain grammatical, syntax or spelling errors. Electronically signed by: Christiano Ruiz M.D. 06/16/2025 12:15 PM PG Care Time/CCT Total # of Minutes Spent Total Time Spent with Patient: Total time spent is greater than 50% in coordination of care (as documented) at patient's floor/unit and/or counseling patient: Coding Level of Care Code 16861 SUB INP/OBS CARE 3/50MIN Diagnoses Nausea and vomiting R11.2 Abdominal pain R10.9 Sinus tachycardia R00.0 NSTEMI (non-ST elevated myocardial infarction) I21.4 Lumbar radiculopathy M54.16 Chronic lumbar pain M54.5; G89.29 Elevated troponin R79.89 LV dysfunction I51.9 Marijuana use F12.90
[2025-06-17 07:46] LABS: Anion Gap 5.0 (3-11); Blood Urea Nitrogen 25.0 mg/dl (6-23); Calcium 8.2 mg/dl (8.6-10.3); Carbon Dioxide 28.0 mmol/L (21-32); Chloride 107.0 mmol/L (98-107); Creatinine Clr Calc Pharmacy 106.7 ml/min; Glucose 96.0 mg/dl (70-99(Fasting)); Potassium 3.8 mmol/L (3.5-5.1); Sodium 140.0 mmol/L (136-145)
[2025-06-17 08:01] LABS: Thyroid Stimulating Hormone 0.373 uIu/ml (0.300-4.500)
[2025-06-17 09:27] LABS: Hydrocodone Urine NEGATIVE ng/mL (<50); Hydromor Urine NEGATIVE ng/mL (<50); Marijuana Quant, GCMS Urine 933 ng/mL (<5); Noroxycodone Urine NEGATIVE ng/mL (<50); Oxymorph Urine NEGATIVE ng/mL (<50)
--- NOTE | 2025-06-17 11:51 | Hospitalist Progress Note ---
Date of Service June 17, 2025 Assessment & Plan (1) Abnormal ventricular wall motion: (2) Nausea and vomiting: (3) Abdominal pain: (4) Sinus tachycardia: (5) NSTEMI (non-ST elevated myocardial infarction): (6) Lumbar radiculopathy: (7) Chronic lumbar pain: (8) Elevated troponin: (9) LV dysfunction: (10) Marijuana use: (11) Accelerated hypertension: (12) Pancreatic calcification: (13) Hyperlipidemia: Plan 69yo male with h/o hyperlipidemia, coronary artery calcifications, chronic lumbar pain, lumbar radiculopathy, history of small bowel obstruction, history of pancreatitis, depression, esophageal dysmotility, septic arthritis, and history of MRSA infection. Recent issues with his lumbar radiculopathy & left knee Nuñez's cyst (which was aspirated by [facility] in the office). Smoking THC heavily x 6 months then abruptly stopped last week. Presented to the emergency department with intractable nausea, vomiting and abdominal discomfort x 3 days. #abd pain/nausea/near-syncope/body-wide tremors/diaphoresis - leading to code purple this morning - -per patient's report today's episode was a more severe rendition of what happened yesterday prior to his EGD, and similar to his presentation on day of admission -today's episode was NOT provoked by eating/drinking/activity -ultimately what resolved all symptoms was nitroglycerin SL then paste along with copious IV narcotics -during today's episode he had changing T waves in his inferior leads -this corresponds to his echo abnormality of inferior wall hypokinesis -given his coronary artery calcifications, inferior wall hypokinesis on echo x 2, abnormal EKGs (particularly the inferior leads), elevated troponins, and his symptoms this is all worrisome for potentially underlying CAD -I am concerned that today's episode was atypical angina -today's episode was NOT provoked by eating/drinking (all prior symptoms this admission have been provoked during meals/eating/drinking) -I discussed his case heavily with Dr Manzano from [facility] [facility] -previously Dr Collins had evaluated Mr Baker as well -in light of the above will plan for L heart cath on Thursday, 06/19 -until then - -aspirin 81mg daily -start low-dose heparin infusion -recheck troponins later today until peak is seen -nitropaste 1 inch q6h scheduled -if he has recurrent episodes then low threshold for code heart alert -all of the above was discussed with the pt's at bedside this afternoon -questions answered -of note - although there has been concern for THC hyperemesis syndrome due to previous chronic, heavy THC use (then abrupt stoppage) symptoms today were unprovoked by eating/drinking -further, recent CT a/p without acute findings and gastritis on EGD would not explain today's episode #gastritis - as seen on EGD - -cont PPI twice daily -cont carafate QID -pepcid PRN #sinus tachycardia - -at admission - resolved -recurrent, severe sinus tach today during his episode -- see above -no a.fib/flutter/SVT -TSH wnl #elevated troponin - -at minimum this is myocardial demand ischemia / type 2 NM in setting of severely elevated BPs/tachycardia/etc -if CAD is found on cath on 06/19 then perhaps the troponins are due to type 1 NM -either way - cont asa, heparin is being initiated, etc. -recheck troponin later tonight #severe chronic lumbar back pain and lumbar radiculopathy - -s/p caudal epidural injection by Dr Junior recently, [facility] -cont IV dexamethasone - this is helping his radicular symptoms significantly -wean as tolerated -limit the heavy narcotics unless absolutely necessary -tylenol 1gm TID -oxycodone prn mild/mod pain; IV dilaudid for severe pain only -cont gabapentin 300mg TID -cont celexa 20mg daily #DVT proph - -stop lovenox since heparin infusion is being started #tremors/anxiety - -pain tends to provoke both -may use ativan PRN #accelerated HTN - -episodic, in the midst of his abd pain episodes -for now - due to concern for underlying CAD - nitropaste 1 inch scheduled q6h #hyperlipidemia - -check lipid profile am -if cath on Thursday shows CAD will need statin #pancreatic calcifications - -as seen on CT abd/pelvis -consider pancrease with meals once eating again -has had pancreatitis in the past, and does drink alcohol although he denies heavy usage -perhaps the pancrease would help with his GI symptoms with eating?? cont IV fluids due to restricted dietary intake care d/w Dr Manzano multiple times care d/w pt's at bedside numerous discussions re: care plan with pt's bedside nurse very complex care coordination prolonged service time today approximately 90 minutes spent on code purple management, ordering and interpreting labs/echo/EKGs, discussion with pt's , discussion with consultants, etc. Admission and Anticipated Discharge Date Admission Date: June 14, 2025 Subjective tele overnight - lead II - T waves were inverted all night, then about 8am today the T waves in this lead became upright somewhere between 6-7am patient developed diffuse abdominal pain he felt poorly from that point forward had nausea tried taking a hot shower without relief of symptoms was shaky/tremulous oral pain meds did not help ativan IV did not help with symptoms KUB x-ray was ordered by myself, and while in the wheelchair as he was being pushed down to radiology his tremors worsened, he felt lightheaded, and then felt himself "falling out" of the wheelchair a code purple was colored on 2north near the elevator when I arrived he was on the floor being helped to a back board staff members then lifted him up to a stretcher he was awake and able to answer questions he never lost consciousness he had severe tremors when we arrived back to his room he was complaining of 12/10 diffuse abd pain he was severely diaphoretic initial BP was 220 systolic and he was tachycardic EKG was obtained - due to artifact because of the shakes/tremors it was hard to interpret the EKG we gave the following - -nitro x 2 SL doses -morphine 2mg IV x 2 doses -pain was not improving -thus, 1 inch of nitropaste applied -dilaudid 0.5mg IV x 1 given -with the above his pain started to improve -tremors/diaphoresis improved -ultimately had to give another dilaudid 0.5mg IV x 1 -pain returned to a 6/10, then 2/10, then ultimately resolved -all symptoms resolved by about ~60 min post code purple -we were able to get an EKG finally --> T wave inversions in inferior leads are now all upright, RBBB remains -during the above events no dysrhythmia seen on telemetry -STAT limited echo obtained - no significant changes from prior echo; but inferior wall motion abnormality remains of note - today's episode was NOT provoked by eating/drinking; came on without warning Review of Systems Review of Systems: gen - feels terrible this morning; no fevers but severe diaphoresis cv - no chest pain during the events of today; no orthopnea; severe diaphoresis; no edema pulm - no dyspnea despite the GI symptoms GI - no vomiting despite nausea; severe diffuse abd pain Physical Exam Physical Exam: during code purple: gen - severely diaphoretic; severe tremors body-wide; anxious and very uncomfortable/in pain mouth - MMM neck - no JVD heart - tachycardic, s1 s2, no murmur lungs - CTA b/l, no rales abd - soft, tender diffusely all over abdomen, ND, BS+, no HSM ext - no edema, pulses 2+ b/l feet; radial pulses 2+ b/l psych - a/o x 3, anxious, distressed skin - profuse diaphoresis & perspiring Results & Data Results & Data Vital Signs (Past 12 Hours) Vital Signs Temp Pulse Resp BP Pulse Ox O2 Del Method 06/17/25 07:46 36.4 C L 52 L 20 176/69 H 95 Room Air 06/17/25 04:10 36.3 C L 46 L 18 146/74 H 97 Room Air Laboratory Results Laboratory Results - last 24 hr 06/14/25 06/17/25 06/17/25 08:51 07:03 10:54 WBC RBC Hgb Hct MCV MCH MCHC RDW Std Deviation RDW Coeff of Richard Plt Count MPV Immature Gran % (Auto) Neut % (Auto) Lymph % (Auto) Troup % (Auto) Eos % (Auto) Baso % (Auto) Neut # (Auto) Lymph # (Auto) Troup # (Auto) Eos # (Auto) Baso # (Auto) Immature Gran # (Auto) PT INR APTT PTT Ratio Heparin Anti-Xa, Unfract Sodium 140 Potassium 3.8 Chloride 107 Carbon Dioxide 28 Anion Gap 5 BUN 25 H Creatinine 0.80 Est Cr Clr Drug Dosing 106.7 eGFR 94.62 BUN/Creatinine Ratio 31.3 H Glucose 96 POC Glucose Lactate Calcium 8.2 L Total Bilirubin Direct Bilirubin AST ALT Alkaline Phosphatase Troponin I High Sens 84.4 H* Total Protein Albumin Lipase Vitamin B12 655 TSH 0.373 U Codeine Confrm GC/MS NEGATIVE Ur Morphine (GC/MS) >73939 H Ur Hydrocodone (GC/MS) NEGATIVE Ur Norhydrocodone NEGATIVE Ur Noroxycodone NEGATIVE Urine Oxycodone (GC/MS) NEGATIVE U Oxymorphone GC/MS NEGATIVE Ur Hydromorphone (GC/MS) NEGATIVE U Marijuana THC Carboxy 933 H Drug Screen Comment SEE NOTE 06/17/25 06/17/25 06/17/25 10:59 11:26 11:46 WBC 8.81 RBC 5.01 Hgb 15.1 Hct 44.4 MCV 88.6 MCH 30.1 MCHC 34.0 RDW Std Deviation 43.3 RDW Coeff of Richard 13.2 Plt Count 232 MPV 9.8 Immature Gran % (Auto) 0.6 Neut % (Auto) 86.2 Lymph % (Auto) 6.2 Troup % (Auto) 6.9 Eos % (Auto) 0.0 Baso % (Auto) 0.1 Neut # (Auto) 7.59 H Lymph # (Auto) 0.55 L Troup # (Auto) 0.61 H Eos # (Auto) 0.00 Baso # (Auto) 0.01 Immature Gran # (Auto) 0.05 PT INR APTT PTT Ratio Heparin Anti-Xa, Unfract Sodium Potassium Chloride Carbon Dioxide Anion Gap BUN Creatinine Est Cr Clr Drug Dosing eGFR BUN/Creatinine Ratio Glucose POC Glucose 91 Lactate 2.1 H* Calcium Total Bilirubin 1.4 H Direct Bilirubin 0.3 H AST 19 ALT 23 Alkaline Phosphatase 63 Troponin I High Sens 85.6 H* Total Protein 6.5 Albumin 3.7 Lipase 37 Vitamin B12 TSH U Codeine Confrm GC/MS Ur Morphine (GC/MS) Ur Hydrocodone (GC/MS) Ur Norhydrocodone Ur Noroxycodone Urine Oxycodone (GC/MS) U Oxymorphone GC/MS Ur Hydromorphone (GC/MS) U Marijuana THC Carboxy Drug Screen Comment 06/17/25 06/17/25 14:28 19:35 WBC 8.16 RBC 4.87 Hgb 14.7 Hct 44.1 MCV 90.6 MCH 30.2 MCHC 33.3 RDW Std Deviation 43.8 RDW Coeff of Richard 13.2 Plt Count 214 MPV 9.9 Immature Gran % (Auto) 0.7 Neut % (Auto) 81.7 Lymph % (Auto) 9.2 Troup % (Auto) 8.3 Eos % (Auto) 0.0 Baso % (Auto) 0.1 Neut # (Auto) 6.66 H Lymph # (Auto) 0.75 L Troup # (Auto) 0.68 H Eos # (Auto) 0.00 Baso # (Auto) 0.01 Immature Gran # (Auto) 0.06 PT 12.6 H INR 1.2 H APTT 26 PTT Ratio 1.0 Heparin Anti-Xa, Unfract Sodium Potassium Chloride Carbon Dioxide Anion Gap BUN Creatinine Est Cr Clr Drug Dosing eGFR BUN/Creatinine Ratio Glucose POC Glucose Lactate Calcium Total Bilirubin Direct Bilirubin AST ALT Alkaline Phosphatase Troponin I High Sens 117.5 H* D Total Protein Albumin Lipase Vitamin B12 TSH U Codeine Confrm GC/MS Ur Morphine (GC/MS) Ur Hydrocodone (GC/MS) Ur Norhydrocodone Ur Noroxycodone Urine Oxycodone (GC/MS) U Oxymorphone GC/MS Ur Hydromorphone (GC/MS) U Marijuana THC Carboxy Drug Screen Comment Diagnostic Findings multiple EKGs this morning: NSR/sinus tach; previous T wave inversions in II, III, AVF now upright; subtle ST segment depression V4/V5 subsequent EKGs - T wave inversions evolving inferior leads; subtle ST changes V4/V5 resolved/normalized PG Care Time/CCT Total # of Minutes Spent Total Time Spent with Patient: Total time spent is greater than 50% in coordination of care (as documented) at patient's floor/unit and/or counseling patient: Prolonged Care Time Prolonged Care Time: Yes Total Prolonged Care Time: 90 Coding Level of Care Code 54594 SUB INP/OBS CARE 3/50MIN (25 - SIGNIFICANT, SEPARATELY IDENTIFIABLE ) Diagnoses Abnormal ventricular wall motion R93.89 Nausea and vomiting R11.2 Abdominal pain R10.9 Sinus tachycardia R00.0 NSTEMI (non-ST elevated myocardial infarction) I21.4 Lumbar radiculopathy M54.16 Chronic lumbar pain M54.5; G89.29 Elevated troponin R79.89 LV dysfunction I51.9 Marijuana use F12.90 Accelerated hypertension I10 Pancreatic calcification K86.89 Hyperlipidemia E78.5 Additional Codes Prolonged Care Time - Prolonged Care Time: Yes ([id number])
[2025-06-17 12:07] LABS: Hematocrit (blood only) 44.4 % (42.0-52.0); Hemoglobin 15.1 g/dl (14.0-18.0); Immature Granulocytes # (auto) 0.05 K/uL (0.01-0.20); Immature Granulocytes % (auto) 0.6 %; Mean Corpuscular Hemoglobin 30.1 pg (25.0-34.0); Mean Corpuscular Volume 88.6 fL (80.0-100.0); Platelet Count 232 K/uL (130-400); RDW Standard Deviation 43.3 fL (36.4-46.3); Red Blood Count 5.01 M/uL (4.70-6.10); White Blood Count 8.81 K/ul (4.8-10.8)
[2025-06-17 12:23] LABS: Alanine Aminotransferase 23.0 U/L (7-52); Albumin Level 3.7 gm/dl (3.4-5.0); Alkaline Phosphatase 63.0 U/L (34-104); Bilirubin,Total 1.4 mg/dl (0.2-1.0); Lipase 37.0 U/L (11-82); Total Protein 6.5 gm/dl (6.0-8.3)
[2025-06-17] MEDS ORDERED: Heparin IV Adult Wt-Based Low-Dose *NO* INITIAL Bolus Protocol IV STA (12:40)
--- NOTE | 2025-06-17 12:40 | XCELERA ---
[id number]
[2025-06-17] MEDS: DICYCLOMINE HCL 10 MG CAP PO ONE (12:50)
[2025-06-17] MEDS: HYDROmorphone INJ 0.5 MG/0.5 ML SYR IV STA ×2 (13:25→13:27)
[2025-06-17] MEDS: MoRPHine SULFATE 4 MG/ML 1 ML CARP\\VIAL ONE (13:26)
[2025-06-17] MEDS: NITROGLYCERIN SL 0.4 MG/TAB TAB ONE ×3 (13:26→13:27)
[2025-06-17] MEDS: MoRPHine SULFATE 2 MG/ML CARP ONE (13:26)
[2025-06-17] MEDS: NITROGLYCERIN 2% OINTMENT 30GM TUBE EXT ONE (13:27)
[2025-06-17] MEDS: HYDROmorphone INJ 0.5 MG/0.5 ML SYR ONE ×2 (13:27)
[2025-06-17 14:54] LABS: Hematocrit (blood only) 44.1 % (42.0-52.0); Hemoglobin 14.7 g/dl (14.0-18.0); Immature Granulocytes # (auto) 0.06 K/uL (0.01-0.20); Immature Granulocytes % (auto) 0.7 %; Mean Corpuscular Hemoglobin 30.2 pg (25.0-34.0); Mean Corpuscular Volume 90.6 fL (80.0-100.0); Platelet Count 214 K/uL (130-400); RDW Standard Deviation 43.8 fL (36.4-46.3); Red Blood Count 4.87 M/uL (4.70-6.10); White Blood Count 8.16 K/ul (4.8-10.8)
[2025-06-17 15:53] LABS: INR 1.2 (0.9-1.1); Partial Thromboplastin Time 26 Seconds (21-31); Prothrombin Time 12.6 Seconds (9.0-12.0)
[2025-06-17] MEDS: HEPARIN 25000 UNIT/500 ML D5W 25,000 UNITS/500 ML BAG IV SCH (16:24)
--- NOTE | 2025-06-17 16:41 | Cardiology Progress Note ---
Date of Service June 17, 2025 Assessment & Plan (1) Cardiomyopathy: (2) Abdominal pain: (3) NSTEMI (non-ST elevated myocardial infarction): Plan 1. Cardiomyopathy: Noted to have some mildly reduced LV systolic function at the time of admission. However, limited echocardiogram performed today reveals preserved LV systolic function. Still some regional wall motion abnormality involving the inferior wall. This appears improved. No evidence of decompensated heart failure or pulmonary vascular congestion. 2. Abdominal pain: There is been some concern that his symptoms are out of proportion to any known gastrointestinal process. There is been some concern that this could represent coronary disease. His symptoms are quite atypical in that regard. However, he does have regional wall motion abnormality on his echocardiogram and coronary calcification seen previously on radiology studies. Very mild elevation in cardiac biomarkers due to his presenting symptoms. We did discuss options for evaluation and I discussed these with the patient. He is elected to proceed with coronary angiography for more definitive evaluation. 3. Presyncopal episode: Patient felt quite poorly this morning while at radiology. Most likely vagally mediated episode. This is based on severe abdominal discomfort, diaphoresis and presyncope. Symptoms now resolved. Transient T wave changes are nonspecific finding, but as noted above we will proceed with more definitive coronary evaluation given the absence of a unifying diagnosis at this point. Admission and Anticipated Discharge Date Admission Date: June 14, 2025 Subjective This morning the patient developed recurrent abdominal discomfort. This became quite severe when he was done in the radiology department. Patient states that his leg started shaking he had some difficulty staying in the wheelchair. He became quite diaphoretic and nauseated as well. He did not lose consciousness. He did not have overt precordial chest discomfort. Symptoms eventually resolved with some analgesics. He Nitropaste was applied patient was started on heparin infusion. He did have some transient T wave changes on EKG. No ST segment changes. Repeat biomarkers essentially unchanged. Currently feeling well. No abdominal pain at all. He is actually hungry and hoping for more substantial food. Review of Systems Review of Systems: Per HPI Physical Exam Physical Exam: The patient is alert and oriented. Mood and affect appeared normal. He answered all questions appropriately. HEENT: Pupils are equal and reactive to light and accommodation. Extraocular movements are intact. The sclerae are anicteric. Neuro: Cranial nerves intact Lungs: Clear to auscultation bilaterally. He has good air movement without use of accessory muscles. No rales wheezes or rhonchi. Cardiac: Heart demonstrates a regular rate and rhythm. Normal S1 and S2. No murmurs on examination. Pulses: The patient has palpable radial pulses bilaterally that are equal in intensity Extremities: There was no evidence of hypoperfusion. There is no cyanosis or clubbing. There is no edema. Skin: I did not appreciate any rashes on examination today. Results & Data Vital Signs (Past 12 Hours) Vital Signs Temp Pulse Resp BP Pulse Ox O2 Del Method 06/17/25 15:59 36.5 C 76 143/54 H 95 Room Air 06/17/25 12:00 36.6 C 63 130/67 92 Room Air 06/17/25 07:46 36.4 C L 52 L 20 176/69 H 95 Room Air 06/17/25 06:00 36.6 C 75 143/54 H 95 Room Air Laboratory Results Abnormal Lab Results 06/14/25 06/17/25 06/17/25 08:51 07:03 10:54 WBC RBC Hgb Hct MCV MCH MCHC RDW Std Deviation RDW Coeff of Richard Plt Count MPV Immature Gran % (Auto) Neut % (Auto) Lymph % (Auto) [place] % (Auto) Eos % (Auto) Baso % (Auto) Neut # (Auto) Lymph # (Auto) [place] # (Auto) Eos # (Auto) Baso # (Auto) Immature Gran # (Auto) PT INR APTT PTT Ratio Sodium 140 Potassium 3.8 Chloride 107 Carbon Dioxide 28 Anion Gap 5 BUN 25 H Creatinine 0.80 Est Cr Clr Drug Dosing 106.7 eGFR 94.62 BUN/Creatinine Ratio 31.3 H Glucose 96 POC Glucose Lactate Calcium 8.2 L Total Bilirubin Direct Bilirubin AST ALT Alkaline Phosphatase Troponin I High Sens 84.4 H* Total Protein Albumin Lipase Vitamin B12 655 TSH 0.373 U Codeine Confrm GC/MS NEGATIVE Ur Morphine (GC/MS) >77586 H Ur Hydrocodone (GC/MS) NEGATIVE Ur Norhydrocodone NEGATIVE Ur Noroxycodone NEGATIVE Urine Oxycodone (GC/MS) NEGATIVE U Oxymorphone GC/MS NEGATIVE Ur Hydromorphone (GC/MS) NEGATIVE U Marijuana THC Carboxy 933 H Drug Screen Comment SEE NOTE 06/17/25 06/17/25 06/17/25 10:59 11:26 11:46 WBC 8.81 RBC 5.01 Hgb 15.1 Hct 44.4 MCV 88.6 MCH 30.1 MCHC 34.0 RDW Std Deviation 43.3 RDW Coeff of Richard 13.2 Plt Count 232 MPV 9.8 Immature Gran % (Auto) 0.6 Neut % (Auto) 86.2 Lymph % (Auto) 6.2 [place] % (Auto) 6.9 Eos % (Auto) 0.0 Baso % (Auto) 0.1 Neut # (Auto) 7.59 H Lymph # (Auto) 0.55 L [place] # (Auto) 0.61 H Eos # (Auto) 0.00 Baso # (Auto) 0.01 Immature Gran # (Auto) 0.05 PT INR APTT PTT Ratio Sodium Potassium Chloride Carbon Dioxide Anion Gap BUN Creatinine Est Cr Clr Drug Dosing eGFR BUN/Creatinine Ratio Glucose POC Glucose 91 Lactate 2.1 H* Calcium Total Bilirubin 1.4 H Direct Bilirubin 0.3 H AST 19 ALT 23 Alkaline Phosphatase 63 Troponin I High Sens 85.6 H* Total Protein 6.5 Albumin 3.7 Lipase 37 Vitamin B12 TSH U Codeine Confrm GC/MS Ur Morphine (GC/MS) Ur Hydrocodone (GC/MS) Ur Norhydrocodone Ur Noroxycodone Urine Oxycodone (GC/MS) U Oxymorphone GC/MS Ur Hydromorphone (GC/MS) U Marijuana THC Carboxy Drug Screen Comment 06/17/25 14:28 WBC 8.16 RBC 4.87 Hgb 14.7 Hct 44.1 MCV 90.6 MCH 30.2 MCHC 33.3 RDW Std Deviation 43.8 RDW Coeff of Richard 13.2 Plt Count 214 MPV 9.9 Immature Gran % (Auto) 0.7 Neut % (Auto) 81.7 Lymph % (Auto) 9.2 [place] % (Auto) 8.3 Eos % (Auto) 0.0 Baso % (Auto) 0.1 Neut # (Auto) 6.66 H Lymph # (Auto) 0.75 L [place] # (Auto) 0.68 H Eos # (Auto) 0.00 Baso # (Auto) 0.01 Immature Gran # (Auto) 0.06 PT 12.6 H INR 1.2 H APTT 26 PTT Ratio 1.0 Sodium Potassium Chloride Carbon Dioxide Anion Gap BUN Creatinine Est Cr Clr Drug Dosing eGFR BUN/Creatinine Ratio Glucose POC Glucose Lactate Calcium Total Bilirubin Direct Bilirubin AST ALT Alkaline Phosphatase Troponin I High Sens Total Protein Albumin Lipase Vitamin B12 TSH U Codeine Confrm GC/MS Ur Morphine (GC/MS) Ur Hydrocodone (GC/MS) Ur Norhydrocodone Ur Noroxycodone Urine Oxycodone (GC/MS) U Oxymorphone GC/MS Ur Hydromorphone (GC/MS) U Marijuana THC Carboxy Drug Screen Comment Diagnostic Findings Echocardiogram 06/14/2025: Mildly dilated left ventricle with mildly reduced LV systolic function. Ejection fraction estimated 45 to 50%. Severe hypokinesis of basal to mid inferior wall. Moderate LVH. No significant valvular heart disease. Echocardiogram 06/17/2025: Preserved LV systolic function with normal left ventricular ejection fraction. Mild hypokinesis of the basal inferior wall to mid ventricle. PG Care Time/CCT Total # of Minutes Spent Total Time Spent with Patient: Total time spent is greater than 50% in coordination of care (as documented) at patient's floor/unit and/or counseling patient: Coding Level of Care Code 96548 SUB INP/OBS CARE 2/35MIN Diagnoses Cardiomyopathy I42.9 Abdominal pain R10.9 NSTEMI (non-ST elevated myocardial infarction) I21.4
--- NOTE | 2025-06-17 16:54 | Electrocardiogram Report ---
Test Reason : Blood Pressure : */* mmHG Vent. Rate : 98 BPM Atrial Rate : 98 BPM P-R Int : 124 ms QRS Dur : 124 ms QT Int : 372 ms P-R-T Axes : 64 -80 33 degrees QTcB Int : 474 ms Normal sinus rhythm Left axis deviation Right bundle branch block Abnormal ECG When compared with ECG of 16-Jun-2025 06:47, Vent. rate has increased by 46 bpm QRS duration has decreased Confirmed by Dontrell Manzano ([id number]) on 06/17/2025 4:53:31 PM Referred By: REFERRED SELF Confirmed By: Dontrell Manzano
--- NOTE | 2025-06-17 16:54 | Electrocardiogram Report ---
Test Reason : Blood Pressure : */* mmHG Vent. Rate : 92 BPM Atrial Rate : 92 BPM P-R Int : 118 ms QRS Dur : 132 ms QT Int : 390 ms P-R-T Axes : 65 -76 16 degrees QTcB Int : 482 ms Normal sinus rhythm Left axis deviation Right bundle branch block Abnormal ECG When compared with ECG of 17-Jun-2025 11:21, (unconfirmed) No significant change was found Confirmed by Dontrell Manzano ([id number]) on 06/17/2025 4:54:15 PM Referred By: REFERRED SELF Confirmed By: Dontrell Manzaon
--- NOTE | 2025-06-17 16:56 | Electrocardiogram Report ---
Test Reason : Blood Pressure : */* mmHG Vent. Rate : 78 BPM Atrial Rate : 78 BPM P-R Int : 132 ms QRS Dur : 142 ms QT Int : 444 ms P-R-T Axes : 64 -71 -42 degrees QTcB Int : 506 ms Normal sinus rhythm Right bundle branch block Left anterior fascicular block Bifascicular block Abnormal ECG When compared with ECG of 17-Jun-2025 11:32, (unconfirmed) Inverted T waves have replaced nonspecific T wave abnormality in Inferior leads Confirmed by Dontrell Manzano ([id number]) on 06/17/2025 4:55:59 PM Referred By: REFERRED SELF Confirmed By: Dontrell Manzano
[2025-06-17] MEDS: NITROGLYCERIN 2% OINTMENT 30GM TUBE EXT SCH (18:40)
[2025-06-17] MEDS: HYDROmorphone INJ 0.5 MG/0.5 ML SYR IV PRN (18:40)
[2025-06-18 00:20] LABS: ANTI-Xa, UFH(UnfractionatedHep 0.25 IU/ml (0.3-0.7)
--- NOTE | 2025-06-18 08:09 | Communication Note ---
Date of Service: June 18, 2025 Yesterday events and cardiology note reviewed. Sent tiger message to Dr Manzano asking if cath performed , can a flush aortagram be performed to check SMA and Celiac artery patency
[2025-06-18 08:15] LABS: Alanine Aminotransferase 21.0 U/L (7-52); Albumin Level 3.5 gm/dl (3.4-5.0); Alkaline Phosphatase 58.0 U/L (34-104); Anion Gap 6.0 (3-11); Bilirubin,Total 0.6 mg/dl (0.2-1.0); Blood Urea Nitrogen 21.0 mg/dl (6-23); Calcium 8.6 mg/dl (8.6-10.3); Carbon Dioxide 28.0 mmol/L (21-32); Chloride 106.0 mmol/L (98-107); Cholesterol 180.0 mg/dl (0-200); Creatinine Clr Calc Pharmacy 113.9 ml/min; Glucose 97.0 mg/dl (70-99(Fasting)); HDL Cholesterol 39.0 mg/dl; Magnesium 2.1 mg/dl (1.7-2.4); Potassium 3.1 mmol/L (3.5-5.1); Sodium 140.0 mmol/L (136-145); Total Protein 6.8 gm/dl (6.0-8.3); Triglycerides 116.0 mg/dl (0-150)
[2025-06-18 08:28] LABS: ANTI-Xa, UFH(UnfractionatedHep 0.38 IU/ml (0.3-0.7)
[2025-06-18] MEDS: LORazepam Inj 0.5 MG in SYRINGE 0.25 ML IV STA (08:45)
[2025-06-18] MEDS: HYDROmorphone INJ 0.5 MG/0.5 ML SYR IV STA (08:45)
[2025-06-18] MEDS: dexAMETHasone 4 MG in SYRINGE 0 ML IV SCH (09:00)
[2025-06-18] MEDS: POTASSIUM CHLORIDE CRTAB 20 MEQ TABCR PO STA (09:03)
--- NOTE | 2025-06-18 11:26 | Hospitalist Progress Note ---
Date of Service June 18, 2025 Assessment & Plan (1) Abnormal ventricular wall motion: (2) Nausea and vomiting: (3) Abdominal pain: (4) Sinus tachycardia: (5) NSTEMI (non-ST elevated myocardial infarction): (6) Lumbar radiculopathy: (7) Chronic lumbar pain: (8) Elevated troponin: (9) LV dysfunction: (10) Marijuana use: (11) Accelerated hypertension: (12) Pancreatic calcification: (13) Hyperlipidemia: Plan 69yo male with h/o hyperlipidemia, coronary artery calcifications, chronic lumbar pain, lumbar radiculopathy, history of small bowel obstruction, history of pancreatitis, depression, esophageal dysmotility, septic arthritis, and history of MRSA infection. Recent issues with his lumbar radiculopathy & left knee Nuñez's cyst (which was aspirated by [facility] in the office). Smoking THC heavily x 6 months then abruptly stopped last week. Presented to the emergency department with intractable nausea, vomiting and abdominal discomfort x 3 days. Had code purple AM of 06/17 - due to severe abd pain/nausea/near-syncope/severe tremors/diaphoresis - see below. #abd pain/nausea/near-syncope/body-wide tremors/diaphoresis - leading to code purple 06/17 - -continues to have episodes of such - some severe, some mild; previously pr ovoked by eating, now no provoking factors -his echo shows inferior wall hypokinesis, and EKGs have shown changing T waves in his inferior leads -given his coronary artery calcifications, inferior wall hypokinesis on echo x 2, abnormal EKGs (particularly the inferior leads), elevated troponins, and his symptoms this is all worrisome for potentially underlying CAD -in light of the above will plan for L heart cath on Thursday, 06/19 - Dr Manzano; NPO after BE mccormack -continue - -aspirin 81mg daily -low-dose heparin infusion -nitropaste 1 inch q6h scheduled -of note - although there has been concern for THC hyperemesis syndrome due to previous chronic, heavy THC use (then abrupt stoppage) symptoms last 2 days have been unprovoked by eating/drinking -to be complete will perform 24-hour urine collection to rule out pheochromocytoma as his BPs and HRs during the spells are very high -also consider CTA chest/abd/pelvis - r/o aortic dissection (but suspicion for such is very low) -place on bentyl scheduled TID and allow baclofen prn -KUB x-ray today - NO ileus or obstruction; +constipation -dulcolax suppos prn #gastritis - as seen on EGD - -cont PPI twice daily -cont carafate QID -pepcid PRN #sinus tachycardia - -at admission - resolved -recurrent, severe sinus tach during his pain episodes -- see above -no a.fib/flutter/SVT -TSH wnl -check 24-hr urine for metanephrines, catecholamines, etc --> r/o pheochromocytoma #elevated troponin - -at minimum - myocardial demand ischemia / type 2 CA in setting of severely elevated BPs/tachycardia/etc -if CAD is found on cath on 06/19 then perhaps the troponins are due to type 1 CA -either [address] - cont asa, heparin drip -peak troponin - 117.5 #severe chronic lumbar back pain and lumbar radiculopathy - -s/p caudal epidural injection by Dr Junior recently, [facility] -cont IV dexamethasone - this has helped his radicular symptoms significantly -stop IV after today's dose, then start PO dex 2mg daily on 06/19 -limit the heavy narcotics unless absolutely necessary -tylenol 1gm TID -oxycodone prn mild/mod pain; IV dilaudid for severe pain only -cont gabapentin 300mg TID -cont celexa 20mg daily #DVT proph - -stopped lovenox since heparin infusion is being used #tremors/anxiety - -pain tends to provoke both -may use ativan PRN #accelerated HTN - -episodic, in the midst of his abd pain episodes -for now - due to concern for underlying CAD - nitropaste 1 inch scheduled q6h -pheochromocytoma w/u #hyperlipidemia - -LDL - 118; HDL - 39; trigs - 116 -if cath on Thursday shows CAD will need statin #pancreatic calcifications - -as seen on CT abd/pelvis -consider pancrease with meals once eating again -has had pancreatitis in the past, and does drink alcohol although he denies heavy usage -perhaps the pancrease would help with his GI symptoms with eating?? cont IV fluids due to restricted dietary intake care d/w Dr Manzano care d/w pt's by phone this evening Admission and Anticipated Discharge Date Admission Date: June 14, 2025 Subjective tele overnight wnl was feeling fine all night last pm and through the morning then his pain came back again before shift change, and escalated once again similar to yesterday, but not as severe still no bowel movement no vomiting no chest pain no dyspnea back pain and radicular pain of legs - SIGNIFICANTLY improved in comparison to h is typical pains he was very emotional during both visits to his bedside today (crying, etc) Review of Systems Review of Systems: CV - no orthopnea, no PND, no edema, no back pain pulm - no dyspnea or BELL GI - still having pain "all over", nausea gen - no appetite Physical Exam Physical Exam: gen - in pain, but not as severe as yesterday; awake/alert mouth - MMM neck - no JVD heart - RRR, s1 s2, no murmur lungs - CTA b/l, no rales abd - soft, tender multiple locations, ND, BS+, no HSM ext - no edema, pulses 2+ b/l feet psych - a/o x 3, anxious, tearful Results & Data Results & Data Vital Signs (Past 12 Hours) Vital Signs Temp Pulse Pulse Resp BP Pulse Ox O2 Del Method 06/18/25 08:07 37.0 C 68 21 95 Room Air 06/18/25 08:00 Room Air 06/18/25 07:00 44 L 06/18/25 04:30 36.2 C L 51 L 20 128/65 91 Room Air 06/18/25 00:45 36.9 C 62 20 162/76 H 96 Room Air Laboratory Results Laboratory Results - last 24 hr 06/17/25 06/17/25 06/17/25 10:54 11:26 11:46 WBC 8.81 RBC 5.01 Hgb 15.1 Hct 44.4 MCV 88.6 MCH 30.1 MCHC 34.0 RDW Std Deviation 43.3 RDW Coeff of Richard 13.2 Plt Count 232 MPV 9.8 Immature Gran % (Auto) 0.6 Neut % (Auto) 86.2 Lymph % (Auto) 6.2 [place] % (Auto) 6.9 Eos % (Auto) 0.0 Baso % (Auto) 0.1 Neut # (Auto) 7.59 H Lymph # (Auto) 0.55 L [place] # (Auto) 0.61 H Eos # (Auto) 0.00 Baso # (Auto) 0.01 Immature Gran # (Auto) 0.05 Lactate 2.1 H* Total Bilirubin 1.4 H Direct Bilirubin 0.3 H AST 19 ALT 23 Alkaline Phosphatase 63 Troponin I High Sens 84.4 H* 85.6 H* Total Protein 6.5 Albumin 3.7 Lipase 37 06/17/25 06/17/25 06/17/25 14:28 19:35 23:29 WBC 8.16 RBC 4.87 Hgb 14.7 Hct 44.1 MCV 90.6 MCH 30.2 MCHC 33.3 RDW Std Deviation 43.8 RDW Coeff of Richard 13.2 Plt Count 214 MPV 9.9 Immature Gran % (Auto) 0.7 Neut % (Auto) 81.7 Lymph % (Auto) 9.2 [place] % (Auto) 8.3 Eos % (Auto) 0.0 Baso % (Auto) 0.1 Neut # (Auto) 6.66 H Lymph # (Auto) 0.75 L [place] # (Auto) 0.68 H Eos # (Auto) 0.00 Baso # (Auto) 0.01 Immature Gran # (Auto) 0.06 PT 12.6 H INR 1.2 H APTT 26 PTT Ratio 1.0 Heparin Anti-Xa, Unfract 0.25 L Troponin I High Sens 117.5 H* D 06/18/25 07:11 Heparin Anti-Xa, Unfract 0.38 Sodium 140 Potassium 3.1 L Chloride 106 Carbon Dioxide 28 Anion Gap 6 BUN 21 Creatinine 0.75 Est Cr Clr Drug Dosing 113.9 eGFR 96.48 BUN/Creatinine Ratio 28.0 H Glucose 97 Calcium 8.6 Magnesium 2.1 Total Bilirubin 0.6 D Direct Bilirubin 0.1 AST 18 ALT 21 Alkaline Phosphatase 58 Troponin I High Sens 91.6 H* D Total Protein 6.8 Albumin 3.5 Triglycerides 116 Cholesterol 180 LDL Cholesterol, Calc 118 VLDL Cholesterol, Calc 23 HDL Cholesterol 39 Cholesterol/HDL Ratio 4.6 Diagnostic Findings KUB X-Ray 06/18/25 11:27 HISTORY: Abdominal pain TECHNIQUE: Supine AP abdominal radiographs. COMPARISON: Abdominal radiographs dated 06/16/2025. FINDINGS: faculty criminal justice leads overlie the abdomen. Right upper quadrant surgical clips consistent with cholecystectomy.Right paraspinal calcification is unchanged and may represent nephrolithiasis. Moderate stool within nondilated colon. Colonic diverticulosis. No gas-filled dilated loops of small bowel are identified. Lumbar levoscoliosis. Severe degenerative changes of the spine. Lung bases are clear. IMPRESSION: * No acute findings. * Moderate stool in the colon. * Possible right nephrolithiasis. * Additional chronic and/or incidental findings as above. Electronically signed by Alec Galvan 06-18-2025 13:19 PM PG Care Time/CCT Total # of Minutes Spent Total Time Spent with Patient: Total time spent is greater than 50% in coordination of care (as documented) at patient's floor/unit and/or counseling patient: Coding Level of Care Code 77036 SUB INP/OBS CARE 3/50MIN Diagnoses Abnormal ventricular wall motion R93.89 Nausea and vomiting R11.2 Abdominal pain R10.9 Sinus tachycardia R00.0 NSTEMI (non-ST elevated myocardial infarction) I21.4 Lumbar radiculopathy M54.16 Chronic lumbar pain M54.5; G89.29 Elevated troponin R79.89 LV dysfunction I51.9 Marijuana use F12.90 Accelerated hypertension I10 Pancreatic calcification K86.89 Hyperlipidemia E78.5
[2025-06-18] MEDS: BACLOFEN 10 MG TAB PO ONE (11:54)
[2025-06-18] MEDS: DICYCLOMINE HCL 10 MG CAP PO ONE (11:55)
[2025-06-18] MEDS: POTASSIUM CHLORIDE CRTAB 20 MEQ TABCR PO ONE (12:59)
--- NOTE | 2025-06-18 13:20 | XRay Report ---
HISTORY: Abdominal pain TECHNIQUE: Supine AP abdominal radiographs. COMPARISON: Abdominal radiographs dated 06/16/2025. FINDINGS: monitoring engineer leads overlie the abdomen. Right upper quadrant surgical clips consistent with cholecystectomy.Right paraspinal calcification is unchanged and may represent nephrolithiasis. Moderate stool within nondilated colon. Colonic diverticulosis. No gas-filled dilated loops of small bowel are identified. Lumbar levoscoliosis. Severe degenerative changes of the spine. Lung bases are clear. IMPRESSION: * No acute findings. * Moderate stool in the colon. * Possible right nephrolithiasis. * Additional chronic and/or incidental findings as above. Electronically signed by Alec Galvan 06-18-2025 13:19 PM
--- NOTE | 2025-06-18 15:41 | Cardiology Progress Note ---
Date of Service June 18, 2025 Assessment & Plan (1) Cardiomyopathy: (2) Abdominal pain: (3) NSTEMI (non-ST elevated myocardial infarction): Plan 1. Cardiomyopathy: Last echocardiogram demonstrated preserved LV systolic function with only mild inferior regional wall motion abnormality. Planning on coronary angiography tomorrow for evaluation. 2. Abdominal pain: Unclear etiology. Not related to eating. Will exclude coronary disease tomorrow although this seems unlikely. 3. Presyncopal episode: No recurrence. Admission and Anticipated Discharge Date Admission Date: June 14, 2025 Subjective This morning the patient was again experiencing some lower abdominal discomfort. This was moderate to severe in intensity. He was not having chest pain. He was not experiencing breathing difficulty. No diaphoresis. He had not eaten anything prior to development of his pain. Review of Systems Review of Systems: Per HPI Physical Exam Physical Exam: The patient is alert and oriented. Mood and affect appeared normal. Uncomfortable. He answered all questions appropriately. HEENT: Pupils are equal and reactive to light and accommodation. Extraocular movements are intact. The sclerae are anicteric. Neuro: Cranial nerves intact Lungs: Clear to auscultation bilaterally. He has good air movement without use of accessory muscles. No rales wheezes or rhonchi. Cardiac: Heart demonstrates a regular rate and rhythm. Normal S1 and S2. No murmurs on examination. Pulses: The patient has palpable radial pulses bilaterally that are equal in intensity Extremities: There was no evidence of hypoperfusion. There is no cyanosis or clubbing. There is no edema. Skin: I did not appreciate any rashes on examination today. Results & Data Vital Signs (Past 12 Hours) Vital Signs Temp Pulse Pulse Resp BP Pulse Ox O2 Del Method 06/18/25 15:00 70 06/18/25 11:51 36.5 C 63 24 142/78 H 94 Room Air 06/18/25 08:07 37.0 C 68 21 95 Room Air 06/18/25 08:05 37.0 C 71 211/87 H 95 Room Air 06/18/25 08:00 Room Air 06/18/25 07:00 44 L 06/18/25 04:30 36.2 C L 51 L 20 128/65 91 Room Air Laboratory Results Abnormal Lab Results 06/17/25 06/17/25 06/17/25 14:28 19:35 23:29 PT 12.6 H INR 1.2 H APTT 26 PTT Ratio 1.0 Heparin Anti-Xa, Unfract 0.25 L Sodium Potassium Chloride Carbon Dioxide Anion Gap BUN Creatinine Est Cr Clr Drug Dosing eGFR BUN/Creatinine Ratio Glucose Calcium Magnesium Total Bilirubin Direct Bilirubin AST ALT Alkaline Phosphatase Troponin I High Sens 117.5 H* D Total Protein Albumin Triglycerides Cholesterol LDL Cholesterol, Calc VLDL Cholesterol, Calc HDL Cholesterol Cholesterol/HDL Ratio 06/18/25 07:11 PT INR APTT PTT Ratio Heparin Anti-Xa, Unfract 0.38 Sodium 140 Potassium 3.1 L Chloride 106 Carbon Dioxide 28 Anion Gap 6 BUN 21 Creatinine 0.75 Est Cr Clr Drug Dosing 113.9 eGFR 96.48 BUN/Creatinine Ratio 28.0 H Glucose 97 Calcium 8.6 Magnesium 2.1 Total Bilirubin 0.6 D Direct Bilirubin 0.1 AST 18 ALT 21 Alkaline Phosphatase 58 Troponin I High Sens 91.6 H* D Total Protein 6.8 Albumin 3.5 Triglycerides 116 Cholesterol 180 LDL Cholesterol, Calc 118 VLDL Cholesterol, Calc 23 HDL Cholesterol 39 Cholesterol/HDL Ratio 4.6 PG Care Time/CCT Total # of Minutes Spent Total Time Spent with Patient: Total time spent is greater than 50% in coordination of care (as documented) at patient's floor/unit and/or counseling patient: Coding Level of Care Code 52090 SUB INP/OBS CARE MIN Diagnoses Cardiomyopathy I42.9 Abdominal pain R10.9 NSTEMI (non-ST elevated myocardial infarction) I21.4
[2025-06-18] MEDS: DICYCLOMINE HCL 10 MG CAP PO SCH (21:03)
[2025-06-19] MEDS: BACLOFEN 10 MG TAB PO PRN (05:13)
[2025-06-19 07:21] LABS: ANTI-Xa, UFH(UnfractionatedHep 0.24 IU/ml (0.3-0.7)
[2025-06-19 07:32] LABS: Anion Gap 9.0 (3-11); Blood Urea Nitrogen 13.0 mg/dl (6-23); Calcium 8.7 mg/dl (8.6-10.3); Carbon Dioxide 24.0 mmol/L (21-32); Chloride 105.0 mmol/L (98-107); Creatinine Clr Calc Pharmacy 125.6 ml/min; Glucose 90.0 mg/dl (70-99(Fasting)); Magnesium 1.9 mg/dl (1.7-2.4); Potassium 3.3 mmol/L (3.5-5.1); Sodium 138.0 mmol/L (136-145)
--- NOTE | 2025-06-19 08:03 | Pre Anesthesia Assessment ---
Date of Service June 19, 2025 Pre Sedation Assessment Vital Signs Temp Pulse Pulse Resp BP BP Pulse Ox 06/19/25 07:58 06/19/25 07:52 75 18 201/100 H 97 06/19/25 07:10 58 L 06/19/25 05:25 186/80 H 06/19/25 05:15 200/83 H 06/19/25 03:33 36.6 C 47 L 20 141/73 H 96 06/19/25 00:27 130/59 L 06/18/25 23:49 36.8 C 68 22 116/57 L 95 06/18/25 22:07 72 06/18/25 20:12 36.7 C 104 H 20 152/80 H 92 06/18/25 16:36 36.5 C 77 21 140/81 95 06/18/25 15:00 70 06/18/25 11:51 36.5 C 63 24 142/78 H 94 06/18/25 08:07 37.0 C 68 21 95 06/18/25 08:05 37.0 C 71 211/87 H 95 O2 Del Method 06/19/25 07:58 Room Air 06/19/25 07:52 Room Air 06/19/25 07:10 06/19/25 05:25 06/19/25 05:15 06/19/25 03:33 Room Air 06/19/25 00:27 06/18/25 23:49 Room Air 06/18/25 22:07 06/18/25 20:12 Room Air 06/18/25 16:36 Room Air 06/18/25 15:00 06/18/25 11:51 Room Air 06/18/25 08:07 Room Air 06/18/25 08:05 Room Air Cardiovascular + regular rate Respiratory + respiratory effort normal Pre-Sedation Airway Assessment Smoking Status: Never smoker Hx Sleep Apnea: No Hx Difficult Intubation: No Short, Thick Neck: No Thyromental Distance: > or= 3.5 Finger Breadths Oral Cavity: + WNL Mallampati Class: III ASA: ASA3 NPO Status Date of Last Intake of Fluids: 06/18/25 Date of Last Intake of Solid Food: 06/18/25 Procedure Planning Contraindications for Sedation: none Current Medications Reviewed: Yes Notes The planned sedation has been discussed with the patient. Informed Consent was obtained. I have identified the patient, determined the appropriateness of sedation and have assessed the patient immediately prior to the procedure. All medicine(s) and interventions are by my order.
[2025-06-19] MEDS: ASPIRIN 81 MG CHEW ONE (08:15)
[2025-06-19] MEDS: NITROGLYCERIN/D5W 100MCG/ML 20ML SYR ONE (08:57)
[2025-06-19] MEDS: niCARdipine 2,000 MCG/20 ML SYR ONE (08:57)
--- NOTE | 2025-06-19 08:57 | Cardiac Catheterization ---
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 Clinical evaluation leading to the procedure CAD Presenation: Sx unlikely to be ischemic Diagnostic Physicians Name: Dontrell Manzano MD Closure Device Recommendations: Medical Therapy and/or Counseling Cardiac Cath Procedure Full Procedure Date June 19, 2025 Pre-Procedure Diagnosis Pre-Procedure Diagnosis: Cardiothoracic Symptom AUC Score AUC Score: 7 Post-Procedure Diagnosis Post-Procedure Diagnosis: Mild CAD Procedure(s) Performed Procedure(s) Performed: Coronary Angiography Portainer Operator Dontrell Manzano MD Geophysical Party Chief(s) none Estimated Blood Loss Estimated Blood Loss: 7cc Medication(s) Medication(s): Fentanyl, Heparin, Lidocaine 1%, Nicardipine, Nitroglycerin and Versed Summary of Findings Procedure performed: Selective coronary angiography Staff small order cutter: Dontrell Manzano MD Indication: The patient is a 69-year-old gentleman without a known history of cardiac disease who has been experiencing episodes of chest abdominal pain. Also noted range of motion abnormalities on recent echocardiogram. Procedure in detail: The patient was informed of the risks benefits and alternatives to the intended procedure, he understood such and wished to proceed. He was taken to the cardiac catheterization suite in a fasting state. Conscious sedation was administered per protocol and the patient was monitored electrocardiographically throughout today's procedure. The right wrist area was prepped and draped in usual sterile fashion. This area was anesthetized using subcutaneous administration of a lidocaine solution. The right radial artery was then accessed using Seldinger technique, and a arterial sheath was placed at this site over a guidewire. The sheath was used to facilitate passage of the cardiac catheter for coronary angiography and left heart catheterization. Coronary angiogram was then obtained in multiple orthogonal views prior to removal of the catheter. At the conclusion of the procedure the sheath was removed and hemostasis was achieved at the access site using manual pressure. The patient tolerated procedure well, there were no immediate complications. Equipment used: 5 Bangl[place]hi [place] 4, 5 Bangl[place]hi JL 3.5 Findings: Coronary angiography Left main: The left main was normal in size and caliber and bifurcated normally into the left anterior descending left circumflex arteries. No obstructive disease in this vessel. Left anterior descending: This was a large transapical vessel. It produced a medium size first diagonal, large second and large third diagonal branch. There was some ostial disease at D2 and approximately 50% stenosis at the ostium of D3. No obstructive disease. Left circumflex: Left circumflex was a nondominant vessel. It produced a large first OM, diminutive OM 2 and medium sized OM 3. No obstructive disease in this distribution. Right coronary artery: Right coronary was a large dominant vessel. Some mild luminal irregularities but no obstructive disease. 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 Any exceptions are noted below. [facility] Card Cath Procedure Codes Cardiac Catheterization Procedure 1: Cardiovascular Cath Procedures: 63840 Coronaries Moderate Sedation Procedure 1: Sedation/Anesthesia: 20483 Mod Sedation by the same physician;Init15 Min Child Age 5 & Up Procedure 2: Sedation/Anesthesia: 34530 Mod Sedation by the same physician; Ea [id number] Minutes PG Care Time/CCT Total # of Minutes Spent Total Time Spent with Patient: Total time spent is greater than 50% in coordination of care (as documented) at patient's floor/unit and/or counseling patient:
--- NOTE | 2025-06-19 08:58 | Post Anesthesia Assessment ---
Date of Service June 19, 2025 Post Sedation Assessment Vital Signs Temp Pulse Pulse Resp BP BP Pulse Ox 06/19/25 08:16 153/91 H 06/19/25 07:58 06/19/25 07:52 75 18 201/100 H 97 06/19/25 07:10 58 L 06/19/25 05:25 186/80 H 06/19/25 05:15 200/83 H 06/19/25 03:33 36.6 C 47 L 20 141/73 H 96 06/19/25 00:27 130/59 L 06/18/25 23:49 36.8 C 68 22 116/57 L 95 06/18/25 22:07 72 06/18/25 20:12 36.7 C 104 H 20 152/80 H 92 06/18/25 16:36 36.5 C 77 21 140/81 95 06/18/25 15:00 70 06/18/25 11:51 36.5 C 63 24 142/78 H 94 O2 Del Method 06/19/25 08:16 06/19/25 07:58 Room Air 06/19/25 07:52 Room Air 06/19/25 07:10 06/19/25 05:25 06/19/25 05:15 06/19/25 03:33 Room Air 06/19/25 00:27 06/18/25 23:49 Room Air 06/18/25 22:07 06/18/25 20:12 Room Air 06/18/25 16:36 Room Air 06/18/25 15:00 06/18/25 11:51 Room Air Recovery Score Activity: Moves 4 extremities Respiration: Deep Breath/Cough Circulation: +/-20-49% PreAnes Value Consciousness: Fully Awake Oxygen Saturation: > 92% On Room Air Post Anesthesia Score: 9 Discharge Sedation Level of Care: Fast Track Phase II Post Sedation Plan On clinical assessment, the patient appears to have tolerated the sedation without complications. Patient is recovering as anticipated. Patient will continue to be monitored by nursing and may be discharged when sedation discharge criteria are met per below protocol. Upon Completions of procedure up to 15 minutes continue every 5 minute vital signs and the P.A.R. score; then discharge to a Phase I or Fast Track to Phase II per the following guidelines: * Discharge Patient to appropriate Phase II area if PAR is 8 or greater or return to pre- procedure baseline. The post - procedure orders will be as directed. * If PAR score is less than 8 or not return to pre-procedure baseline then patient will follow Phase I monitoring till PAR is reached for Phase II. The Phase I may be done in procedure room or may call to secure a Phase I area. * If naloxone or flumazenil are used for reversal, hold in Phase I for continued monitoring from when last reversal dose was given for a minimum of 60 minutes or longer pending the nurse and/or physician discretion of patient condition before discharge to Phase II. Please call the Sedation Physician to re-evaluate and complete post-note for discharge to Phase II area. Do NOT discharge from procedure sedation or Phase 1 until post- sedation evaluation note is complete by procedure /sedation MD Sedation Discharge Instructions to be given to the patient at discharge to home.
[2025-06-19] MEDS: OPTIRAY 350 ONE (09:06)
[2025-06-19] MEDS: MIDAZOLAM HCL 1 MG/ML 2ML VIAL ONE (09:06)
[2025-06-19] MEDS: HEPARIN (PORCINE) 1000 UNIT/ML 10 ML (CATH LAB USE ONLY) ONE (09:06)
[2025-06-19] MEDS: POTASSIUM CHLORIDE CRTAB 20 MEQ TABCR PO STA (09:53)
[2025-06-19] MEDS: LORazepam Inj 1 MG in SYRINGE 0.5 ML IV PRN (10:27)
--- NOTE | 2025-06-19 12:16 | Cardiology Progress Note ---
Date of Service June 19, 2025 Assessment & Plan (1) Cardiomyopathy: (2) Abdominal pain: (3) NSTEMI (non-ST elevated myocardial infarction): Plan 1. Cardiomyopathy: Last echocardiogram demonstrated preserved LV systolic function with only mild inferior regional wall motion abnormality. No evidence of obstructive coronary disease on his angiography. 2. Abdominal pain: Unclear etiology. Not related to eating. Entertaining the possibility of mesenteric ischemia 3. Presyncopal episode: No recurrence. Likely vagally mediated. 4. Nonobstructive coronary disease: He would benefit from standard risk factor modification. Blood pressures appear to be high here in the hospital. Any agent would be reasonable for blood pressure control including calcium channel blockers, MARLENE/ARB. Additionally, a cholesterol agent such as atorvastatin at moderate dose would be a good intervention at this point as well. That could be deferred to the outpatient setting once his pain symptoms have been controlled. At this point cardiology will sign off, please feel free to call with additional concerns or questions. Admission and Anticipated Discharge Date Admission Date: June 14, 2025 Subjective This morning patient had another episode of his lower abdominal discomfort. This did respond to narcotic administration. No symptoms of chest discomfort. No nausea or vomiting. Review of Systems Review of Systems: Per HPI Physical Exam Physical Exam: The patient is alert and oriented. Mood and affect appeared normal. Uncomfortable. He answered all questions appropriately. HEENT: Pupils are equal and reactive to light and accommodation. Extraocular movements are intact. The sclerae are anicteric. Neuro: Cranial nerves intact Lungs: Clear to auscultation bilaterally. He has good air movement without use of accessory muscles. No rales wheezes or rhonchi. Cardiac: Heart demonstrates a regular rate and rhythm. Normal S1 and S2. No murmurs on examination. Pulses: The patient has palpable radial pulses bilaterally that are equal in intensity Extremities: There was no evidence of hypoperfusion. There is no cyanosis or clubbing. There is no edema. Skin: I did not appreciate any rashes on examination today. Results & Data Vital Signs (Past 12 Hours) Vital Signs Temp Pulse Pulse Resp BP Pulse Ox O2 Del Method 06/19/25 10:23 36.8 C 62 20 142/87 H 95 Room Air 06/19/25 09:27 64 18 139/86 95 Room Air 06/19/25 09:12 63 18 144/81 H 95 Room Air 06/19/25 08:16 153/91 H 06/19/25 07:58 Room Air 06/19/25 07:52 75 18 201/100 H 97 Room Air 06/19/25 07:10 58 L 06/19/25 05:25 186/80 H 06/19/25 05:15 200/83 H 06/19/25 03:33 36.6 C 47 L 20 141/73 H 96 Room Air 06/19/25 00:27 130/59 L Laboratory Results Abnormal Lab Results 06/19/25 05:30 Heparin Anti-Xa, Unfract 0.24 L Sodium 138 Potassium 3.3 L Chloride 105 Carbon Dioxide 24 Anion Gap 9 BUN 13 Creatinine 0.68 Est Cr Clr Drug Dosing 125.6 eGFR 99.38 BUN/Creatinine Ratio 19.1 Glucose 90 Calcium 8.7 Magnesium 1.9 Diagnostic Findings Cardiac catheterization performed today revealed some nonobstructive disease in the LAD distribution. No obstructive lesions. No evidence of an acute coronary syndrome. PG Care Time/CCT Total # of Minutes Spent Total Time Spent with Patient: Total time spent is greater than 50% in coordination of care (as documented) at patient's floor/unit and/or counseling patient: Coding Level of Care Code 74593 SUB INP/OBS CARE 2/35MIN Diagnoses Cardiomyopathy I42.9 Abdominal pain R10.9 NSTEMI (non-ST elevated myocardial infarction) I21.4
[2025-06-19] MEDS: OPTIRAY 320 125ml IV ONE (12:43)
--- NOTE | 2025-06-19 13:35 | CT Scan Report ---
CT angio abd pelvis wo/w con CLINICAL HISTORY: episodes severe abd pain/nausea; mesenteric dis? COMPARISON STUDY: 06/14/2025 FINDINGS: There are findings of emphysema in the lung bases. There is a small hiatal hernia. ABDOMEN: There are a few stable liver cysts. Gallbladder is surgically absent. Spleen and pancreas ar e unremarkable. There are stable bilateral adrenal nodules, 1.6 cm on the right 1.9 cm on the left. K idneys show no hydronephrosis. There is residual contrast in the renal collecting systems, limiting e valuation for calculi. There are a few tiny renal cysts bilaterally. There are scattered atherosclerotic calcifications. No abdominal aortic aneurysm or significant aorti c luminal narrowing. Celiac, superior mesenteric, and inferior mesenteric arteries show no significan t narrowing. Renal arteries show no significant narrowing. Visualized arterial outflow shows no signi ficant narrowing. Pelvis: Prostate is enlarged. Urinary bladder is nondistended. There is extensive sigmoid diverticulo sis. No acute diverticulitis. There is moderate retained stool. No bowel inflammation or obstruction seen. No free fluid, free air, or abscess. No enlarged adenopathy. Osseous structures: There is mild scoliosis. There are diffuse degenerative changes at the spine and hips. IMPRESSION: 1. No acute findings. 2. No evidence of mesenteric arterial stenosis. 3. Otherwise as described. ACT 112: Negative or not required by law. Electronically signed by: Saroj Mathur M.D. 06/19/2025 1:33 PM
--- NOTE | 2025-06-19 13:37 | CT Scan Report ---
CT head/brain wo con CLINICAL HISTORY: episodes of severe HTN, abd pain. TECHNIQUE: Multiple axial CT images of the head were obtained without contrast. A dose lowering tech nique was utilized adhering to the principles of ALARA. COMPARISON: None FINDINGS: No intracranial hemorrhage seen. No mass effect, midline shift, or hydrocephalus. No skull fracture seen. Visualized paranasal sinuses and mastoid air cells are clear. IMPRESSION: No acute findings. ACT 112: Negative or not required by law. The above report was generated using voice recognition software. It may contain grammatical, syntax o r spelling errors. Electronically signed by: Saroj Mathur M.D. 06/19/2025 1:35 PM
[2025-06-19] MEDS: POLYETHYLENE (MIRALAX) 17 GM PACK PO SCH (17:05)
--- NOTE | 2025-06-19 19:01 | Hospitalist Progress Note ---
Date of Service June 19, 2025 Assessment & Plan (1) Abnormal ventricular wall motion: (2) Nausea and vomiting: (3) Abdominal pain: (4) Sinus tachycardia: (5) NSTEMI (non-ST elevated myocardial infarction): (6) Lumbar radiculopathy: (7) Chronic lumbar pain: (8) Elevated troponin: (9) LV dysfunction: (10) Marijuana use: (11) Accelerated hypertension: (12) Pancreatic calcification: (13) Hyperlipidemia: (14) Nonobstructive atherosclerosis of coronary artery: Plan 69yo male with h/o hyperlipidemia, coronary artery calcifications, chronic lumbar pain, lumbar radiculopathy, history of small bowel obstruction, history of pancreatitis, depression, esophageal dysmotility, septic arthritis, and history of MRSA infection. Recent issues with his lumbar radiculopathy & left knee Nuñez's cyst (which was aspirated by [facility] in the office). Smoking THC heavily x 6 months then abruptly stopped last week. Presented to the emergency department with intractable nausea, vomiting and abdominal discomfort x 3 days. Had code purple AM of 06/17 - due to severe abd pain/nausea/near-syncope/severe tremors/diaphoresis/EKG changes - see below. #abd pain/nausea/near-syncope/body-wide tremors/diaphoresis - leading to code purple 06/17 - -has had multiple episodes of such - some severe, some mild - while hospitalized -previously provoked by eating only; some episodes have no provoking factors, however -his echo showed inferior wall hypokinesis, and EKGs have shown changing T waves in his inferior leads -given his coronary artery calcifications, inferior wall hypokinesis on echo x 2, abnormal EKGs (particularly the inferior leads), elevated troponins, and his symptoms this was all worrisome for potentially underlying CAD -L heart cath completed by Dr Manzano today -nonobstructive CAD only -can stop heparin drip -reasonable to continue aspirin 81mg daily -stop nitropaste -to be complete performed CTA abd/pelvis today - NO mesenteric stenosis seen on any major vessel; no aortic dissection or aneurysm -CT head without acute findings -performed 24-hour urine collection to rule out pheochromocytoma as his BPs and HRs during the abd pain spells are very high and he has profuse sweats sometimes -- collection completed, results pending -placed on bentyl scheduled TID and allow baclofen prn -of note - there has been concern for THC hyperemesis syndrome due to previous chronic, heavy THC use (then abrupt stoppage) -if indeed he has THC hyperemesis syndrome the symptoms can be hard to treat in some cases -allow diet as tolerated, stop IV dilaudid, and hopefully we can transition him home tomorrow #gastritis - as seen on EGD - -cont PPI twice daily -cont carafate QID -pepcid PRN #sinus tachycardia - -at admission - resolved -recurrent, severe sinus tach during his pain episodes -- see above -no a.fib/flutter/SVT -TSH wnl -checked 24-hr urine for metanephrines, catecholamines, etc --> r/o pheochromocytoma #elevated troponin - -2nd myocardial demand ischemia / type 2 NV in setting of severely elevated BPs/tachycardia/etc -non-obstructive CAD found on cath today -peak troponin - 117.5 #severe chronic lumbar back pain and lumbar radiculopathy - -s/p caudal epidural injection by Dr Junior recently, [facility] -cont IV dexamethasone - this has helped his radicular symptoms significantly -stop IV after today's dose, then start PO dex 2mg daily today -limit the heavy narcotics unless absolutely necessary -tylenol 1gm TID -oxycodone prn pain; stop IV dilaudid -cont gabapentin 300mg TID -cont celexa 20mg daily #tremors/anxiety - -pain tends to provoke both -may use ativan PRN #accelerated HTN - -episodic, in the midst of his abd pain episodes -pheochromocytoma w/u pending #hyperlipidemia - -LDL - 118; HDL - 39; trigs - 116 -consider statin #pancreatic calcifications - -as seen on CT abd/pelvis -consider pancrease with meals once eating consistently -has had pancreatitis in the past, and does drink alcohol although he denies heavy usage -perhaps the pancrease would help with his GI symptoms with eating?? stop IV fluids care d/w Dr Manzano today care d/w pt's on 06/18 Admission and Anticipated Discharge Date Admission Date: June 14, 2025 Subjective patient underwent heart cath this am by Dr Manzano prior to going down he had significantly elevated BP, was anxious, etc. his BP improved once in the cath lab technologist after receiving sedatives saw patient post-cath he reports that he feels well and is relieved he doesn't have severe CAD no nausea/emesis today he reports he is hungry he is agreeable to stopping the IV dilaudid we discussed timing of d/c home Review of Systems Review of Systems: gen - no fevers cv - no chest pain pulm - no dyspnea GI - still no bowel movement Physical Exam Physical Exam: gen - best he has looked all admission; pleasant; NAD mouth - MMM neck - no JVD heart - RRR, s1 s2, no murmur lungs - CTA b/l, no rales abd - soft, NT, ND, BS+, no HSM ext - no edema, pulses 2+ b/l feet psych - a/o x 3, in good spirits during the visit Results & Data Results & Data Vital Signs (Past 12 Hours) Vital Signs Temp Pulse Pulse Resp BP Pulse Ox O2 Del Method 06/19/25 16:21 36.8 C 66 144/83 H 98 Room Air 06/19/25 14:44 69 06/19/25 12:15 36.6 C 123 H 154/85 H 93 Room Air 06/19/25 10:23 36.8 C 62 20 142/87 H 95 Room Air 06/19/25 09:27 64 18 139/86 95 Room Air 06/19/25 09:12 63 18 144/81 H 95 Room Air 06/19/25 08:16 153/91 H 06/19/25 07:58 Room Air 06/19/25 07:52 75 18 201/100 H 97 Room Air 06/19/25 07:10 58 L Laboratory Results Laboratory Results 06/19/25 05:30 Heparin Anti-Xa, Unfract 0.24 L Sodium 138 Potassium 3.3 L Chloride 105 Carbon Dioxide 24 Anion Gap 9 BUN 13 Creatinine 0.68 Est Cr Clr Drug Dosing 125.6 eGFR 99.38 BUN/Creatinine Ratio 19.1 Glucose 90 Calcium 8.7 Magnesium 1.9 Diagnostic Findings Left heart cath with Dr Manzano: Coronary angiography Left main: The left main was normal in size and caliber and bifurcated normally into the left anterior descending left circumflex arteries. No obstructive disease in this vessel. Left anterior descending: This was a large transapical vessel. It produced a medium size first diagonal, large second and large third diagonal branch. There was some ostial disease at D2 and approximately 50% stenosis at the ostium of D3. No obstructive disease. Left circumflex: Left circumflex was a nondominant vessel. It produced a large first OM, diminutive OM 2 and medium sized OM 3. No obstructive disease in this distribution. Right coronary artery: Right coronary was a large dominant vessel. Some mild luminal irregularities but no obstructive disease. PG Care Time/CCT Total # of Minutes Spent Total Time Spent with Patient: Total time spent is greater than 50% in coordination of care (as documented) at patient's floor/unit and/or counseling patient: Coding Level of Care Code 48367 SUB INP/OBS CARE 3/50MIN Diagnoses Abnormal ventricular wall motion R93.89 Nausea and vomiting R11.2 Abdominal pain R10.9 Sinus tachycardia R00.0 NSTEMI (non-ST elevated myocardial infarction) I21.4 Lumbar radiculopathy M54.16 Chronic lumbar pain M54.5; G89.29 Elevated troponin R79.89 LV dysfunction I51.9 Marijuana use F12.90 Accelerated hypertension I10 Pancreatic calcification K86.89 Hyperlipidemia E78.5 Nonobstructive atherosclerosis of coronary artery I25.10
[2025-06-19] MEDS: HYDROmorphone INJ 0.5 MG/0.5 ML SYR IV STA (21:23)
[2025-06-20 06:59] LABS: Hematocrit (blood only) 41.9 % (42.0-52.0); Hemoglobin 15.2 g/dl (14.0-18.0); Mean Corpuscular Hemoglobin 31.3 pg (25.0-34.0); Mean Corpuscular Volume 86.4 fL (80.0-100.0); Platelet Count 198 K/uL (130-400); RDW Standard Deviation 41.4 fL (36.4-46.3); Red Blood Count 4.85 M/uL (4.70-6.10); White Blood Count 6.70 K/ul (4.8-10.8)
[2025-06-20 07:20] LABS: Anion Gap 9.0 (3-11); Blood Urea Nitrogen 15.0 mg/dl (6-23); Calcium 8.8 mg/dl (8.6-10.3); Carbon Dioxide 24.0 mmol/L (21-32); Chloride 104.0 mmol/L (98-107); Creatinine Clr Calc Pharmacy 133.4 ml/min; Glucose 93.0 mg/dl (70-99(Fasting)); Potassium 3.0 mmol/L (3.5-5.1); Sodium 137.0 mmol/L (136-145)
[2025-06-20] MEDS: POTASSIUM CHLORIDE CRTAB 20 MEQ TABCR PO STA ×2 (09:46→21:15)
[2025-06-20] MEDS: HYDROmorphone INJ 0.5 MG/0.5 ML SYR IV STA (09:46)
[2025-06-20 10:44] LABS: Alanine Aminotransferase 23.0 U/L (7-52); Albumin Level 3.7 gm/dl (3.4-5.0); Alkaline Phosphatase 63.0 U/L (34-104); Bilirubin,Total 0.7 mg/dl (0.2-1.0); Total Protein 7.1 gm/dl (6.0-8.3)
--- NOTE | 2025-06-20 11:51 | Gastroenterology Progress Note ---
Date of Service June 20, 2025 Assessment & Plan (1) Abdominal pain: Plan: No GI pathology noted in his significant work-up. Would aim to eliminate minimize narcotic use. Would continue with a bowel regimen, but will increase Miralax to 17 gm BID and add Linzess 145 mcg daily. He has not had a bowel movement in nearly 1 week. Can consider an enema if not moving his bowels. Consider Remeron trial. Non-GI work-up ongoing per primary team, but I do question a component of withdrawal from either marijuana or opioids. Patient has spent a significant portion of the day in a hot shower and notes it's the only thing that relieves his symptoms. He did not have any of this abdominal pain prior to stopping marijuana recently. There are notes suggesting possibility of using pancreatic enzymes, which is a benign intervention but the degree of his pain is not typical for what is seen with pancreatic calcifications seen on CT scan. Admission and Anticipated Discharge Date Admission Date: June 14, 2025 Supervising Physician Co-Signing Physician Notes Chart reviewed discussed with hospitalist and ZACHARY Santos. Discussed with patient. I believe that this is functional abdominal pain. May be aggravated by acute marijuana withdrawal. Patient gives a history of numerous surgeries up to 90. He states pain medications almost killed him in the past. He is buying his marijuana off the street so potentially for other compounds. I do not think further GI investigations will be helpful. I would manage him with Remeron. Take the edge off his symptoms patient also was tearful intermittently states he feels he did this to himself. Remeron mood elevation may help Unfortunately do not think I have much to offer. Negative EGD colonoscopy negative CT negative CTA. Subjective Patient is a 69 yo male with abdominal pain. No consistent pattern. Previously seen by the GI team earlier in this admission with no GI pathology noted. He has had an EGD, CT scan, KUB, CTA abdomen without findings.He had an EGD during this stay without causes of his pain. He has had a colonoscopy in November 2023. He has been on PPI BID, Carafate, Famotidine, Baclofen, & Bentyl. He is on scheduled Miralax. He is ordered Dulcolax. He has required Dilaudid during his stay due to his pain. He has lumbar spine issues for which he takes Gabapentin and is injected. He did have a cardiac event during this stay that resulted in him needing a heart catheterization. Per nursing, patient has episodes where he is acutely distraught and sweating and abdominal pain occurs during these episodes. He had such significant abdominal pain today Though he has pain, he is unwilling to take the OxyIR prescribed and notes he only wishes to take Dilaudid. Of note, he was previously without abdominal pain when he was smoking marijuana regularly. He stopped shortly prior to admission. Since stopping, he has significant abdominal pain. He sits in a hot shower because he notes it relieves the pain. Review of Systems Gastrointestinal: + abdominal pain and + constipation; no blood in stools Physical Exam Physical Exam: Patient in shower; will reassess PE on afternoon rounds Results & Data Results & Data Vital Signs (Past 12 Hours) Vital Signs Temp Pulse Pulse Resp BP Pulse Ox O2 Del Method 06/20/25 10:38 37.0 C 74 95 Room Air 06/20/25 08:00 36.6 C 69 16 128/80 96 Room Air 06/20/25 07:21 68 06/20/25 02:49 36.7 C 68 18 148/89 H 96 Room Air PG Care Time/CCT Total # of Minutes Spent Total Time Spent with Patient: Total time spent is greater than 50% in coordination of care (as documented) at patient's floor/unit and/or counseling patient: Coding Level of Care Code 42175 SUB INP/OBS CARE 09/17MIN Diagnoses Abdominal pain R10.9
[2025-06-20] MEDS: LINACLOTIDE 145 MCG CAPSULE PO SCH (16:15)
[2025-06-20] MEDS: MIRTAZAPINE SOLTAB 15 MG PO SCH (19:30)
--- NOTE | 2025-06-20 20:27 | Hospitalist Progress Note ---
Date of Service June 20, 2025 Assessment & Plan (1) Abdominal pain: (2) Nausea and vomiting: (3) Constipation: (4) Marijuana use: (5) Sinus tachycardia: (6) NSTEMI (non-ST elevated myocardial infarction): (7) Lumbar radiculopathy: (8) Chronic lumbar pain: (9) Elevated troponin: (10) LV dysfunction: (11) Accelerated hypertension: (12) Pancreatic calcification: (13) Hyperlipidemia: (14) Nonobstructive atherosclerosis of coronary artery: (15) Abnormal ventricular wall motion: Plan 69yo male with h/o hyperlipidemia, coronary artery calcifications, chronic lumbar pain, lumbar radiculopathy, history of small bowel obstruction, history of pancreatitis, depression, esophageal dysmotility, septic arthritis, and history of MRSA infection. Recent issues with his lumbar radiculopathy & left knee Nuñez's cyst (which was aspirated by [facility] in the office). Smoking THC heavily x 6 months then abruptly stopped last week. Presented to the emergency department with intractable nausea, vomiting and abdominal discomfort x 3 days. Had code purple AM of 06/17 - due to severe abd pain/nausea/near-syncope/severe tremors/diaphoresis/EKG changes - see below. #abd pain/nausea/near-syncope/body-wide tremors/diaphoresis - leading to code purple 06/17 - -has had multiple episodes of such - some severe, some mild - while hospitalized -had another episode of abdominal pain/sweats/anxiety/etc this am -previously provoked by eating only; some episodes have no provoking factors, however -his echo showed inferior wall hypokinesis, and EKGs have shown changing T waves in his inferior leads -given his coronary artery calcifications, inferior wall hypokinesis on echo x 2, abnormal EKGs (particularly the inferior leads), elevated troponins, and his symptoms this was all worrisome for potentially underlying CAD -L heart cath completed by Dr Manzano -nonobstructive CAD only -continue aspirin 81mg daily -CTA abd/pelvis - NO mesenteric stenosis seen on any major vessel; no aortic dissection or aneurysm -CT head without acute findings -performed 24-hour urine collection to rule out pheochromocytoma as his BPs and HRs during the abd pain spells are very high and he has profuse sweats sometimes -- collection completed, results pending -sent chromogranin A level (r/o carcinoid) -cont bentyl scheduled TID -cont baclofen prn Myself & GI have counseled patient that the IV dilaudid needs to be stopped and narcotics in general need to be limited as this will simply make any motility issue worse and his constipation worse -IV dilaudid has been stopped -allow oxycodone prn -of note - there has been concern for THC hyperemesis syndrome due to previous chronic, heavy THC use (then abrupt stoppage) -if indeed he has THC hyperemesis syndrome the symptoms can be hard to treat in some cases -allow diet as tolerated -appreciate GI assistance -starting the following 2 meds -- -Linzess daily for constipation -Remeron 15mg HS for abd pain/nausea/insomnia/mood #gastritis - as seen on EGD - -cont PPI twice daily -cont carafate QID #sinus tachycardia - -at admission - resolved -then has had recurrent, severe sinus tach episodes -- see above -no a.fib/flutter/SVT on tele at any time -TSH wnl -checked 24-hr urine for metanephrines, catecholamines, etc --> r/o pheochromocytoma --> results pending #elevated troponin - -2nd myocardial demand ischemia / type 2 NV in setting of severely elevated BPs/tachycardia/etc -non-obstructive CAD found on cath 06/[address] Manzano -peak troponin - 117.5 #severe chronic lumbar back pain and lumbar radiculopathy - -s/p caudal epidural injection by Dr Junior recently, [facility] -cont dexamethasone 2mg daily for a few more days then stop all steroids -pain/radicular symptoms MUCH IMPROVED with IV/PO dex -limit the heavy narcotics unless absolutely necessary -tylenol 1gm TID -oxycodone prn pain -cont gabapentin 300mg TID -cont celexa 20mg daily #tremors/anxiety - -pain tends to provoke both the tremors & anxiety -may use ativan PRN -starting Remeron 15mg HS tonight #accelerated HTN - -episodic, in the midst of his abd pain episodes -pheochromocytoma w/u pending #hyperlipidemia - -LDL - 118; HDL - 39; trigs - 116 -consider statin in light of mild CAD seen on cath #pancreatic calcifications - -as seen on CT abd/pelvis -consider pancrease with meals ??? defer that decision to GI -has had pancreatitis in the past, and does drink alcohol although he denies heavy usage -perhaps the pancrease would help with his GI symptoms with eating?? care d/w [facility] multiple times today care d/w pt's on 06/18 and 06/20 by phone Admission and Anticipated Discharge Date Admission Date: June 14, 2025 Subjective tele overnight wnl patient had another episode of severe abd pain this am was sweaty, tremulousness, anxious by report the staff found him crawling on the floor in pain numerous meds given for his symptoms - nothing helped ultimately had to give IV dilaudid x 1 which improved the pain I spoke multiple times today with gastroenterology they recommended Linzess for constipation and Remeron at HS for pain/other symptoms during rounds he was teary-eyed again I asked if he wanted to speak with behavioral health - he declined such we had lengthy discussion about his abd pain we discussed medical THC for his chronic pain/anxiety/etc. he mentioned he was afraid to eat because of getting pain/sweats/etc. Review of Systems Review of Systems: gen - no fevers cv - no chest pain pulm - no dyspnea GI - no vomiting, occasional nausea; 1 pebble of hard stool since admission psych - insomnia, anxiety, tearful Physical Exam Physical Exam: gen - looks physically the same as prior visits; tearful mouth - MMM neck - no JVD heart - RRR, s1 s2, no murmur lungs - CTA b/l, no rales abd - soft, NT, ND, BS+, no HSM ext - no edema, pulses 2+ b/l feet psych - a/o x 3 neuro - no tremors Results & Data Results & Data Vital Signs (Past 12 Hours) Vital Signs Temp Pulse Pulse Resp BP Pulse Ox O2 Del Method 06/20/25 19:36 36.9 C 90 18 105/71 94 Room Air 06/20/25 16:14 36.7 C 87 22 149/75 H 96 Room Air 06/20/25 14:18 96 H 06/20/25 12:05 Room Air 06/20/25 10:38 37.0 C 74 95 Room Air Laboratory Results Laboratory Results - last 24 hr 1006/20/25 06/20/25 05:55 09:51 09:54 WBC 6.70 RBC 4.85 Hgb 15.2 Hct 41.9 L MCV 86.4 MCH 31.3 MCHC 36.3 H RDW Std Deviation 41.4 RDW Coeff of Richard 13.2 Plt Count 198 MPV 10.0 Sodium 137 Potassium 3.0 L Chloride 104 Carbon Dioxide 24 Anion Gap 9 BUN 15 Creatinine 0.64 Est Cr Clr Drug Dosing 133.4 eGFR 101.21 BUN/Creatinine Ratio 23.4 H Glucose 93 POC Glucose 121 H Calcium 8.8 Total Bilirubin 0.7 Direct Bilirubin 0.2 AST 21 ALT 23 Alkaline Phosphatase 63 Total Protein 7.1 Albumin 3.7 Chromogranin A Pending PG Care Time/CCT Total # of Minutes Spent Total Time Spent with Patient: Total time spent is greater than 50% in coordination of care (as documented) at patient's floor/unit and/or counseling patient: Coding Level of Care Code 08263 SUB INP/OBS CARE 3/50MIN Diagnoses Abdominal pain R10.9 Nausea and vomiting R11.2 Constipation K59.00 Marijuana use F12.90 Sinus tachycardia R00.0 NSTEMI (non-ST elevated myocardial infarction) I21.4 Lumbar radiculopathy M54.16 Chronic lumbar pain M54.5; G89.29 Elevated troponin R79.89 LV dysfunction I51.9 Accelerated hypertension I10 Pancreatic calcification K86.89 Hyperlipidemia E78.5 Nonobstructive atherosclerosis of coronary artery I25.10 Abnormal ventricular wall motion R93.89
[2025-06-20] MEDS: POLYETHYLENE (MIRALAX) 17 GM PACK PO SCH (21:15)
[2025-06-21 10:27] LABS: Anion Gap 10.0 (3-11); Blood Urea Nitrogen 29.0 mg/dl (6-23); Calcium 9.3 mg/dl (8.6-10.3); Carbon Dioxide 26.0 mmol/L (21-32); Chloride 103.0 mmol/L (98-107); Creatinine Clr Calc Pharmacy 94.1 ml/min; Glucose 195.0 mg/dl (70-99(Fasting)); Potassium 3.0 mmol/L (3.5-5.1); Sodium 139.0 mmol/L (136-145)
[2025-06-21] MEDS: POTASSIUM CHLORIDE CRTAB 20 MEQ TABCR PO SCH (12:31)
[2025-06-21] MEDS: LORazepam Inj 0.5 MG in SYRINGE 0.25 ML IV STA (14:33)
[2025-06-21] MEDS: diphenhydrAMINE 50 MG/ML VIAL IV STA (14:34)
[2025-06-21] MEDS: PROPRANOLOL HCL 10 MG TAB PO SCH (15:26)
--- NOTE | 2025-06-21 15:29 | Hospitalist Progress Note ---
Date of Service June 21, 2025 Assessment & Plan (1) Abdominal pain: (2) Nausea and vomiting: (3) Constipation: (4) Marijuana use: (5) Sinus tachycardia: (6) NSTEMI (non-ST elevated myocardial infarction): (7) Lumbar radiculopathy: (8) Chronic lumbar pain: (9) Elevated troponin: (10) LV dysfunction: (11) Accelerated hypertension: (12) Pancreatic calcification: (13) Hyperlipidemia: (14) Nonobstructive atherosclerosis of coronary artery: (15) Abnormal ventricular wall motion: Plan 69yo male with h/o hyperlipidemia, coronary artery calcifications, chronic lumbar pain, lumbar radiculopathy, history of small bowel obstruction, history of pancreatitis, depression, esophageal dysmotility, septic arthritis, and history of MRSA infection. Recent issues with his lumbar radiculopathy & left knee Nuñez's cyst (which was aspirated by [facility] in the office). Smoking THC heavily x 6 months then abruptly stopped last week. Presented to the emergency department with intractable nausea, vomiting and abdominal discomfort x 3 days. Describes > 1 year of episodic profuse sweats/tachycardia/HTN/shaking/severe abdominal pain. Only relieved by very hot water. No nausea/vomiting/diarrhea or flushing/hives with episodes. Initially triggered by meals (but not consi stently now - can occur when awakening in AM). These far predate his cannabis use and are getting worse -considered [facility] - trial of benadryl 50 mg IV today during an acute episode, unfortunately did not help. Obtained tryptase level during this episode. -consider GI dumping syndrome -performed 24-hour urine collection to rule out pheochromocytoma as his BPs and HRs during the abd pain spells are very high and he has profuse sweats sometimes -- collection completed, results pending -sent chromogranin A level (r/o carcinoid) -may have complex withdrawal syndrome. Had been using street supply cannabis which can be laced with many things -episode this AM responded to lorazepam 0.5 mg IV and oxycodone 10 mg. Had recurrence mid afternoon that did not respond to lorazepam 0.5 mg IV and benadryl 50 mg IV -started propranolol 10 mg tid and seroquel for symptomatic relief, titrate up. Has all been sinus tachy and TSH wnl CAD, Cardiac workup coronary artery calcifications, inferior wall hypokinesis on echo x 2, abnormal EKGs (particularly the inferior leads), elevated troponins -L heart cath completed by Dr Manzano -nonobstructive CAD only -continue aspirin 81mg daily, consider statin LDL - 118; HDL - 39; trigs - 116 Gatrointestinal workup -EGD 06/16- diffuse gastritis -CTA abd/pelvis - no mesenteric stenosis seen on any major vessel; no aortic dissection or aneurysm -GI consulted- thought OIC and functional -started trial of linaclotide and bentyl -consider cannabis hyperemesis - seroquel 25 mg tid ordered starting 06/21 also helps with anxiety sx -bid PPI for gastritis. stopped carafate since not taking Mood -mirtazapine 15 mg po HS, celexa -trial seroquel as above Other issues: #elevated troponin - -2nd myocardial demand ischemia / type 2 MO in setting of severely elevated BPs/tachycardia/etc -non-obstructive CAD found on cath 06/[address] Manzano #severe chronic lumbar back pain and lumbar radiculopathy - -s/p caudal epidural injection by Dr Junior recently, [facility] -cont dexamethasone 2mg daily for a few more days then stop all steroids -pain/radicular symptoms nearly resolved, seemed to respond to steroids -sched APAP and gabapentin updated his at bedside 06/21 high risk medications: oral opioids, IV lorazepam, IV benadryl Admission and Anticipated Discharge Date Admission Date: June 14, 2025 Results & Data Results & Data Vital Signs (Past 12 Hours) Vital Signs Temp Pulse Pulse Resp BP BP Pulse Ox 06/21/25 15:13 37.5 C 107 H 18 157/101 H 93 06/21/25 14:59 97 H 06/21/25 11:22 36.7 C 98 H 20 172/87 H 98 06/21/25 08:46 36.7 C 93 H 16 165/103 H 96 06/21/25 07:51 36.7 C 89 18 165/110 H 96 06/21/25 07:02 73 O2 Del Method 06/21/25 15:13 Room Air 06/21/25 14:59 06/21/25 11:22 Room Air 06/21/25 08:46 Room Air 06/21/25 07:51 Room Air 06/21/25 07:02 PG Care Time/CCT Total # of Minutes Spent Total Time Spent with Patient: I personally spent: 55 minutes today on clinical care activities including: reviewing chart notes and vital signs reviewing labs reviewing studies discussions with bedside nurse examining and counseling the patient counseling the patient's family writing orders documentation Coding Level of Care Code 26326 SUB INP/OBS CARE 3/50MIN Diagnoses Abdominal pain R10.9 Nausea and vomiting R11.2 Constipation K59.00 Marijuana use F12.90 Sinus tachycardia R00.0 NSTEMI (non-ST elevated myocardial infarction) I21.4 Lumbar radiculopathy M54.16 Chronic lumbar pain M54.5; G89.29 Elevated troponin R79.89 LV dysfunction I51.9 Accelerated hypertension I10 Pancreatic calcification K86.89 Hyperlipidemia E78.5 Nonobstructive atherosclerosis of coronary artery I25.10 Abnormal ventricular wall motion R93.89
[2025-06-21] MEDS: FAMOTIDINE 20 MG TAB PO SCH (21:13)
[2025-06-22] MEDS: LORazepam Inj 0.5 MG in SYRINGE 0.25 ML IV PRN ×2 (01:52→16:01)
[2025-06-22 07:28] LABS: Anion Gap 11.0 (3-11); Calcium 9.1 mg/dl (8.6-10.3); Carbon Dioxide 23.0 mmol/L (21-32); Chloride 106.0 mmol/L (98-107); Magnesium 2.1 mg/dl (1.7-2.4); Potassium 3.4 mmol/L (3.5-5.1); Sodium 140.0 mmol/L (136-145)
[2025-06-22 07:34] LABS: Blood Urea Nitrogen 30.0 mg/dl (6-23); Creatinine Clr Calc Pharmacy 114.7 ml/min; Glucose 133.0 mg/dl (70-99(Fasting))
--- NOTE | 2025-06-22 08:27 | Hospitalist Progress Note ---
Date of Service June 22, 2025 Assessment & Plan (1) Acute gastritis without hemorrhage: (2) Abdominal pain: (3) Type [address] elevation: (4) Coronary atherosclerosis: (5) Ischemic cardiomyopathy: (6) Accelerated hypertension: (7) Cannabis use disorder in remission: Plan Mr. Baker Is a 69-year-old male initially admitted for abdominal pain associated with persistent tachycardia found to have a type II myocardial infarction who remains admitted for persistent complications related to generalized abdominal pain. #Acute gastritis without hemorrhage // Persistent severe abdominal pain // Opioid induced constipation Regarding the patient's presenting abdominal pain they underwent EGD on 06/16 which revealed a small hiatal hernia, diffuse moderate inflammatory changes including erythema and edema of the gastric antrum and body interpreted by gastroenterology to be acute gastritis. Pathology does not reveal any significant pathologic change to guide further diagnostic conclusion. Continue pantoprazole 40 mg p.o. twice daily Continue famotidine 20 mg p.o. twice daily Carafate discontinued as the patient was not taking this medication Administer milk of molasses enema 1 time to facilitate stool passage; consider dose of Relistor if refractory Pending serum gastrin measure to assess for possible autoimmune gastritis Pending stool H. pylori antigen study Previously ordered chromogranin a level pending - assessment was started for Mass Cell Activation Syndrome on 06/21, serum Tryptase is pending Given the absence of additional pathology findings from gastric antral and body biopsies lower degree of suspicion for something like lymphocytic, collagenous, or eosinophilic gastritis The patient is adamant during my discussion with him today that he did not present with any vomiting nor has he had any vomiting during his hospitalization; this makes cannabis hyperemesis syndrome less likely; additionally though noted that the patient was using cannabis obtained not via dispensary, his urine drug screen was without any abnormal findings other than opioids which she was administered prior to obtaining the study. It is unlikely that the cannabis he had been using was laced with an additional substance that could be causing a complicated withdrawal Gastroenterology consulted #Type II myocardial infarction without ST elevation // coronary atherosclerosis // ischemic cardiomyopathy // accelerated hypertension Patient presented with progressive troponin elevation; underwent left heart catheterization on 06/19 without associated complications; not found to have any significant obstructive coronary disease at that time Continue medical therapy for associated comorbidities Assessment for accelerated hypertension continues with pending results from previously obtained 24-hour urine collection to rule out pheochromocytoma #Cannabis use disorder with recent remission Prior to presentation the patient had been using cannabis not obtained via a dispensary for approximately 6 months for management of severe lumbar radiculopathy/sciatic nerve pain; this was self-discontinued several days prior to his presentation. The patient is adamant during my discussion on 06/22 they have not had any episodes of emesis prior to presentation nor during his hospitalization. Admission and Anticipated Discharge Date Admission Date: June 14, 2025 Results & Data Results & Data Vital Signs (Past 12 Hours) Vital Signs Temp Pulse Resp BP Pulse Ox O2 Del Method 06/22/25 03:14 37.0 C 80 18 118/76 92 Room Air 06/21/25 22:56 37.2 C 76 18 118/77 95 Room Air PG Care Time/CCT Total # of Minutes Spent Total Time Spent with Patient: Total time spent is greater than 50% in coordination of care (as documented) at patient's floor/unit and/or counseling patient: Coding Level of Care Code 35627 SUB INP/OBS CARE MIN Diagnoses Other acute gastritis without hemorrhage K29.00 Gastritis type: other gastritis Generalized abdominal pain R10.84 Abdominal location: generalized Type [address] elevation I21.A1 Atherosclerosis of [place] coronary artery of [place] heart without angina pectoris I25.10 Coronary Disease-Associated Artery/Lesion type: [place] artery [place] vs. transplanted heart: [place] heart Associated angina: without angina Ischemic cardiomyopathy I25.5 Accelerated hypertension I10 Cannabis use disorder in remission F12.91 (1) Acute gastritis without hemorrhage Gastritis type: other gastritis Qualified Code(s): K29.00 - Acute gastritis without bleeding (2) Abdominal pain Abdominal location: generalized Qualified Code(s): R10.84 - Generalized abdominal pain (4) Coronary atherosclerosis Coronary Disease-Associated Artery/Lesion type: [place] artery [place] vs. transplanted heart: [place] heart Associated angina: without angina Qualified Code(s): I25.10 - Atherosclerotic heart disease of [place] coronary artery without angina pectoris
[2025-06-22] MEDS: POTASSIUM CHLORIDE CRTAB 20 MEQ TABCR PO SCH (10:36)
[2025-06-22] MEDS: POLYETHYLENE (MIRALAX) 17 GM PACK PO ONE (22:40)
--- NOTE | 2025-06-23 07:25 | Hospitalist Progress Note ---
Date of Service June 23, 2025 Assessment & Plan (1) Acute gastritis without hemorrhage: (2) Abdominal pain: (3) Type [address] elevation: (4) Coronary atherosclerosis: (5) Ischemic cardiomyopathy: (6) Accelerated hypertension: (7) Cannabis use disorder in remission: Plan Mr. Baker Is a 69-year-old male initially admitted for abdominal pain associated with persistent tachycardia found to have a type II myocardial infarction who remains admitted for persistent complications related to generalized abdominal pain. #Acute gastritis without hemorrhage // Persistent severe abdominal pain // Opioid induced constipation Regarding the patient's presenting abdominal pain they underwent EGD on 06/16 which revealed a small hiatal hernia, diffuse moderate inflammatory changes including erythema and edema of the gastric antrum and body interpreted by gastroenterology to be acute gastritis. Pathology does not reveal any significant pathologic change to guide further diagnostic conclusion. Continue pantoprazole 40 mg p.o. twice daily Continue famotidine 20 mg p.o. twice daily Carafate discontinued as the patient was not taking this medication Administer milk of molasses enema 1 time to facilitate stool passage, was not administered on 06/23, unclear as to why; consider dose of Relistor if refractory Pending serum gastrin measure to assess for possible autoimmune gastritis Pending stool H. pylori antigen study Previously ordered chromogranin a level pending - assessment was started for Mass Cell Activation Syndrome on 06/21, serum Tryptase is pending Given the absence of additional pathology findings from gastric antral and body biopsies lower degree of suspicion for something like lymphocytic, collagenous, or eosinophilic gastritis Gastroenterology consulted #Type II myocardial infarction without ST elevation // coronary atherosclerosis // ischemic cardiomyopathy // accelerated hypertension Patient presented with progressive troponin elevation; underwent left heart catheterization on 06/19 without associated complications; not found to have any significant obstructive coronary disease at that time Continue medical therapy for associated comorbidities Assessment for accelerated hypertension continues with pending results from previously obtained 24-hour urine collection to rule out pheochromocytoma #Cannabis use disorder with recent remission Prior to presentation the patient had been using cannabis not obtained via a dispensary for approximately 6 months for management of severe lumbar radiculop athy/sciatic nerve pain; this was self-discontinued several days prior to his presentation. The patient was adamant during my discussion on 06/22 they have not had any episodes of emesis prior to presentation nor during his hospitalization; though noted that the patient was using cannabis obtained not via dispensary, his urine drug screen was without any abnormal findings other than opioids which he was administered prior to obtaining the study. It is unlikely that the cannabis he had been using was laced with an additional substance that could be causing a complicated withdrawal Admission and Anticipated Discharge Date Admission Date: June 14, 2025 Subjective Mr. Baker is a 69-year-old male whose active medical conditions include ischemic cardiomyopathy in the setting of non-obstructive coronary atherosclerosis, essential hypertension, hyperlipidemia, chronic osteoarthritis with degenerative disc disease of the lumbar spine resulting in radiculopathy among other chronic medical conditions who presented to the [facility] on 06/14 due to persistent and progressive abdominal pain. No acute overnight events Review of Systems Review of Systems: Review of constitutional, cardiovascular, pulmonary, gastrointestinal, neurologic systems was unremarkable except for pertinent positive and negative findings discussed above Physical Exam Physical Exam: General: elderly male in no acute distress Vital Signs: Reviewed HEENT: moist mucous membranes; pupils equally round and reactive to light; extraocular motion intact OU Pulmonary: symmetric chest wall excursion without restriction; clear to auscultation bilaterally Cardiovascular: regular rate and rhythm without murmurs, rubs, or gallops; S1 and S2 normal; right radial pulse 2+; no notable lower extremity edema Gastrointestinal: soft, nondistended; voluntary guarding with palpation; mildly tender to palpation throughout, but without acute peritoneal findings; bowel sounds with low frequency and normal pitch Neurologic: CN II-XII grossly intact; no discernible focal weakness nor paresthesias PG Care Time/CCT Total # of Minutes Spent Total Time Spent with Patient: Total time spent is greater than 50% in coordination of care (as documented) at patient's floor/unit and/or counseling patient: Coding Level of Care Code 13383 SUB INP/OBS CARE 2MIN Diagnoses Other acute gastritis without hemorrhage K29.00 Gastritis type: other gastritis Generalized abdominal pain R10.84 Abdominal location: generalized Type [address] elevation I21.A1 Atherosclerosis of [place] coronary artery of [place] heart without angina pectoris I25.10 Associated angina: without angina Coronary Disease-Associated Artery/Lesion type: [place] artery [place] vs. transplanted heart: [place] heart Ischemic cardiomyopathy I25.5 Accelerated hypertension I10 Cannabis use disorder in remission F12.91 (1) Acute gastritis without hemorrhage Gastritis type: other gastritis Qualified Code(s): K29.00 - Acute gastritis without bleeding (2) Abdominal pain Abdominal location: generalized Qualified Code(s): R10.84 - Generalized abdominal pain (4) Coronary atherosclerosis Associated angina: without angina Coronary Disease-Associated Artery/Lesion type: [place] artery [place] vs. transplanted heart: [place] heart Qualified Code(s): I25.10 - Atherosclerotic heart disease of [place] coronary artery without angina pectoris
[2025-06-24] MEDS: PROPRANOLOL HCL 20 MG TAB PO SCH (15:36)
[2025-06-24] MEDS: PROCHLORPERAZINE 5 MG in SYRINGE 4 ML IV PRN (16:36)
--- NOTE | 2025-06-24 19:18 | Hospitalist Progress Note ---
Date of Service June 24, 2025 Assessment & Plan (1) Acute gastritis without hemorrhage: (2) Abdominal pain: (3) Type [address] elevation: (4) Coronary atherosclerosis: (5) Ischemic cardiomyopathy: (6) Accelerated hypertension: (7) Cannabis use disorder in remission: Plan Mr. Baker Is a 69-year-old male initially admitted for abdominal pain associated with persistent tachycardia found to have a type II myocardial infarction who remains admitted for persistent complications related to generalized abdominal pain. #Acute gastritis without hemorrhage // Persistent severe abdominal pain // Opioid induced constipation Regarding the patient's presenting abdominal pain they underwent EGD on 06/16 which revealed a small hiatal hernia, diffuse moderate inflammatory changes including erythema and edema of the gastric antrum and body interpreted by gastroenterology to be acute gastritis. Pathology does not reveal any significant pathologic change to guide further diagnostic conclusion. Continue pantoprazole 40 mg p.o. twice daily Continue famotidine 20 mg p.o. twice daily Carafate discontinued as the patient was not taking this medication Pending serum gastrin measure to assess for possible autoimmune gastritis Pending stool H. pylori antigen study Previously ordered chromogranin a level pending - assessment was started for Mass Cell Activation Syndrome on 06/21, serum Tryptase is pending Given the absence of additional pathology findings from gastric antral and body biopsies lower degree of suspicion for something like lymphocytic, collagenous, or eosinophilic gastritis OIC improved and now having BMs, laxative diarrhea and nausea this AM #Type II myocardial infarction without ST elevation // coronary atherosclerosis // ischemic cardiomyopathy // accelerated hypertension Patient presented with progressive troponin elevation; underwent left heart catheterization on 06/19 without associated complications; not found to have any significant obstructive coronary disease at that time Continue medical therapy for associated comorbidities Assessment for accelerated hypertension continues with pending results from previously obtained 24-hour urine collection to rule out pheochromocytoma - increased propranolol to 20 mg tid. Has been helpful with hypertension and tachycardia, possibly with sweats and anxiety #Cannabis use disorder with recent remission Prior to presentation the patient had been using cannabis not obtained via a dispensary for approximately 6 months for management of severe lumbar radi culopathy/sciatic nerve pain; this was self-discontinued several days prior to his presentation. The patient was adamant during my discussion on 06/22 they have not had any episodes of emesis prior to presentation nor during his hospitalization; though noted that the patient was using cannabis obtained not via dispensary, his urine drug screen was without any abnormal findings other than opioids which he was administered prior to obtaining the study. Slowly improving. Today I discussed with him transitioning to lorazepam SL instead of IV this weekend, slowly tapering off oxycodone and lorazepam which can continue outside the hospital. would not recommend either of these for usp use. Admission and Anticipated Discharge Date Admission Date: June 14, 2025 Subjective Improved compared to when I saw him several days ago and definitely since last week Still having episodes of severe abdominal pain being treated with IV lorazepam and po oxycodone 10 mg Vital signs changes and sweats have been much less dramatic Was obstipated and finally started having copious BMs past 24h after enema, diarrhea this am with nausea Physical Exam Physical Exam: Last 24h vitals reviewed GEN: no acute distress, sitting in bed HEENT: pupils equal, sclerae anicteric, moist MM RESP: normal WOB, CTAB CV: reg no mrg ABD: soft/nt/nd +BT : no felix SKIN: warm and dry, no generalized rashes NEURO: AOx person, place, and situation. Face symmetric, speech normal, moves 4 ext spontaneously and equally Results & Data Results & Data Vital Signs (Past 12 Hours) Vital Signs Temp Pulse Resp BP Pulse Ox O2 Del Method 06/24/25 15:34 36.9 C 100 H 15 127/97 96 Room Air 06/24/25 07:47 36.9 C 100 H 18 178/109 H 97 Room Air PG Care Time/CCT Total # of Minutes Spent Total Time Spent with Patient: Total time spent is greater than 50% in coordination of care (as documented) at patient's floor/unit and/or counseling patient: Coding Level of Care Code 03796 SUB INP/OBS CARE 2/35MIN Diagnoses Other acute gastritis without hemorrhage K29.00 Gastritis type: other gastritis Generalized abdominal pain R10.84 Abdominal location: generalized Type [address] elevation I21.A1 Atherosclerosis of [place] coronary artery of [place] heart without angina pectoris I25.10 Coronary Disease-Associated Artery/Lesion type: [place] artery [place] vs. transplanted heart: [place] heart Associated angina: without angina Ischemic cardiomyopathy I25.5 Accelerated hypertension I10 Cannabis use disorder in remission F12.91 (1) Acute gastritis without hemorrhage Gastritis type: other gastritis Qualified Code(s): K29.00 - Acute gastritis without bleeding (2) Abdominal pain Abdominal location: generalized Qualified Code(s): R10.84 - Generalized abdominal pain (4) Coronary atherosclerosis Coronary Disease-Associated Artery/Lesion type: [place] artery [place] vs. transplanted heart: [place] heart Associated angina: without angina Qualified Code(s): I25.10 - Atherosclerotic heart disease of [place] coronary artery without angina pectoris
[2025-06-25 07:30] VITALS: BP 152/89; PULSE 79; RESP 16; TEMP 97.3; O2SAT 95
[2025-06-25] MEDS: LORazepam 1 MG TAB SL PRN (12:50)
--- NOTE | 2025-06-25 12:54 | Discharge Summary ---
Discharge Summary Date of Service June 25, 2025 Principal Dx & Hospital Course #1 = Principal Diagnosis (1) Acute gastritis without hemorrhage: (2) Abdominal pain: (3) Type [address] elevation: (4) Coronary atherosclerosis: (5) Ischemic cardiomyopathy: (6) Accelerated hypertension: (7) Cannabis use disorder in remission: Plan Mr. Baker Is a 69-year-old male initially admitted for abdominal pain associated with persistent tachycardia and severe hypertension found to have a type II NSTEMI he underwent coronary angiography and his coronary disease was nonobstructive hospitalization was prolonged because of uncontrolled paroxysms of abdominal pain associated with tachycardia sweats and hypertension. I think that he had a withdrawal syndrome from THC, potentially complex withdrawal if the street cannabis he was using was contaminated with other substances. This improved over time. The tachycardia and uncontrolled hypertension resolved partially assisted by starting propranolol. He had a thorough GI workup including CT of the abdomen and pelvis, CTA of the abdomen, EGD and no specific cause was identified for his abdominal pain. He did have gastritis but did not fully seem to explain his symptoms. The paroxysmal abdominal pain has been going on for quite a long time at least a year. Anxiety may be playing a role and he was started on propranolol and nighttime mirtazapine for sleep mood and appetite. He is stable for discharge to the outpatient setting we will continue taper of oxycodone and lorazepam over the next few weeks. I did provide a 7-10-day supply at discharge with instructions on how to start tapering. #Acute gastritis without hemorrhage // Persistent severe abdominal pain // Opioid induced constipation Regarding the patient's presenting abdominal pain they underwent EGD on 06/16 which revealed a small hiatal hernia, diffuse moderate inflammatory changes including erythema and edema of the gastric antrum and body interpreted by gastroenterology to be acute gastritis. Pathology does not reveal any significant pathologic change to guide further diagnostic conclusion. Continue pantoprazole 40 mg p.o. twice daily Continue famotidine 20 mg p.o. twice daily As needed Carafate discontinued as the patient was not taking this medication Pending serum gastrin measure to assess for possible autoimmune gastritis Pending stool H. pylori antigen study Previously ordered chromogranin a level was normal - serum and plasma metanephrines were ordered for severe uncontrolled hypert ension and these are pending - assessment was started for Mass Cell Activation Syndrome on 06/21, serum Tryptase drawn during a flare on 06/21 is pending, I lucia a repeat level while he was asymptomatic today on 06/25 this is also pending Given the absence of additional pathology findings from gastric antral and body biopsies lower degree of suspicion for something like lymphocytic, collagenous, or eosinophilic gastritis OIC improved and now having BMs, continue laxatives while on opioids #Type II myocardial infarction without ST elevation // coronary atherosclerosis // ischemic cardiomyopathy // accelerated hypertension Patient presented with progressive troponin elevation; underwent left heart catheterization on 06/19 without associated complications; not found to have any significant obstructive coronary disease at that time Continue medical therapy for associated comorbidities Assessment for accelerated hypertension continues with pending results from previously obtained 24-hour urine collection to rule out pheochromocytoma - increased propranolol to 30 mg tid. Has been helpful with hypertension and tachycardia, possibly with sweats and anxiety. no longer having sweats and blood pressure is well-controlled #Cannabis use disorder with recent remission, cannabis withdrawal syndrome Prior to presentation the patient had been using cannabis not obtained via a dispensary for approximately 6 months for management of severe lumbar radiculopathy/sciatic nerve pain as well as his paroxysmal abdominal pain; this was self-discontinued several days prior to his presentation. his urine drug screen was without any abnormal findings other than cannabis and opioids, which he was administered prior to obtaining the study. Admission HPI Per Admitting Provider The patient is a 69-year-old male with past med history including hyperlip idemia, coronary artery calcifications, chronic lumbar pain, lumbar radiculopathy, history of small bowel obstruction, history of pancreatitis, depression, esophageal dysmotility, septic arthritis, and history of MRSA infection. The patient presents to the emergency department with intractable nausea, vomiting and abdominal discomfort for the past 3 days. He has been smoking large amounts of marijuana to help deal with ongoing and worsening low back and sciatica pain. He reports he is seeing orthopedic surgeons who are trying to also drain fluid out of a Nuñez's cyst. His is with him, who helps corroborate the story. He was found to have a heart rate of 125-135 and peak blood pressure of 190s/90s. From the ED has received normal saline 1 L bolus, morphine 4 mg IV x 2, Zofran 4 mg IV, and lorazepam 0.5 mg IV, with little improvement in pain, nausea and blood pressure and heart rate. His troponin was found to be elevated at 73.1, potassium 3.7, magnesium 2.2, calcium is 10.8 hemoglobin is 18.2 hematocrit 51.8, WBC 16.26. Laboratories suggestive of hemoconcentration. He also tried capsaicin cream, which made his skin turn bright red. The patient was referred for evaluation for admission to the [facility] Hospitalist service. Discharge Exam Last 24h vitals reviewed GEN: no acute distress, sitting in bed HEENT: pupils equal, sclerae anicteric, moist MM RESP: nonlabored CV: ABD: nondistended : no felix SKIN: warm and dry, no generalized rashes NEURO: AOx person, place, and situation. Face symmetric, speech normal, moves 4 ext spontaneously and equally Discharge Plan Discharge Items Patient Disposition: Home - Self-Care Reason For Visit: SINUS TACHYCARDIA,NSTEMI Discharge Diagnosis: Type 2 nstemi Nonobstructive CAD, cardiomyopathy Uncontrolled hypertension Paroxysmal abdominal pain Cannabis withdrawal Condition on Discharge: Good Activity: Resume your previous activity Non-emergency contact: Primary Care Provider Call non-emergency contact if: you have any medication questions and your symptoms worsen Follow-up/Referrals: Concepción Parrish CRNP [Primary Care Provider] - 07/03/25 2:00 pm Diet: Regular Addtl Attending Provider Instructions: I think you did have some significant cannabis withdrawal earlier on which has resolved Avoiding "street" cannabis is a good idea because sometimes it is laced with other drugs / substances and the THC levels can be spiked You had severely high blood pressure and high heart rates earlier in the hospital stay, which has resolved. This caused some heart muscle strain but none of your coronary arteries were blocked -continue taking propranolol - this controls blood pressure, heart rate, and has a calming effect -this can be tapered off over time and/or changed to a more long acting BP medication if necessary -eventually you'll benefit from addition of a statin medicine to prevent worsening of coronary artery disease - deferred until your other symptoms improve I am not sure what causes your abdominal spasms / pain. It had clearly flared up. We did extensive testing (CT scans of abdomen, abdominal blood vessels, endoscopy) but did not find a specific cause. Right now symptoms are controlled with lorazepam and oxycodone, but these are not very safe for intermediate accountant use and should be tapered off over a few weeks -continue mirtazapine at night (Remeron) this is safe for detention use and helps with sleep, appetite, and mood -try to slowly taper the oxycodone - after a few days or a week try decreasing to 1 tab (or 1.5 tabs) instead of 2 tabs -try to reduce the frequency of using lorazepam (ativan) and eventually decrease to 1 tab -follow up in primary care to continue tapering off -to help with this I temporarily increased your gabapentin For gastritis (stomach inflammation) seen on EGD continue taking pantoprazole (acid suppression medicine), to help stomach heal There are several lab tests still pending to check for rare problems - these can take up to a few more weeks to result Stay on regular bowel meds to prevent constipation while on oxycodone For constipation: Miralax 1 capful daily or twice a day as needed Senna tabs 1-2 tabs daily as needed -these are both safe to take intermediate accountant Dulcolax 5-10 mg tab daily as needed if the above meds are ineffective Dulcolax suppository per rectum daily as needed -these are for more severe constipation and are for short term use These medications are all available over the counter at the drugstore It was a pleasure taking care of you in the hospital, Rosalee Tilley MD Pending Studies at Discharge: Yes (plasma and serum metanephrines, gastrin level, tryptase levels) Stand-Alone Forms: My [facility], Pain - Opioid Pain Management, Smoking Cessation Medications and DC Order Prescriptions: New aspirin 81 mg Tablet,Delayed Release (Dr/Ec) 81 mg PO QAM Qty: 0 0RF Rx Instructions: buy over the counter. for coronary artery disease acetaminophen [Tylenol Extra Strength] 500 mg Tablet 1,000 mg PO TID PRN (Reason: Pain) Qty: 0 0RF propranolol 10 mg Tablet 30 mg PO TID Qty: 90 0RF gabapentin 300 mg Capsule 600 mg PO TID Qty: 90 0RF lorazepam 0.5 mg tablet 1 mg sublingual Q6H PRN (Reason: anxiety) Qty: 56 0RF Rx Instructions: decrease to 1 tab after 5-7 days oxycodone 5 mg tablet 10 mg PO Q6H PRN (Reason: pain) Qty: 56 0RF Rx Instructions: decrease to 1 tab after 5-7 days mirtazapine 30 mg tablet 30 mg PO HS Qty: 30 0RF famotidine 20 mg Tablet 20 mg PO BID PRN (Reason: Acid Reflux) Qty: 0 0RF Rx Instructions: buy over the counter. as needed for heartburn or epigastric pain if pantopra zole alone ineffective pantoprazole 40 mg Tablet,Delayed Release (Dr/Ec) 40 mg PO BID Qty: 60 0RF dicyclomine 10 mg Capsule 20 mg PO QID PRN (Reason: Abdominal Pain) Qty: 56 0RF Rx Instructions: antispasmodic Continued citalopram 20 mg tablet 20 mg PO QAM Qty: 90 3RF omega-3 fatty acids 500 mg capsule 500 mg PO DAILY Patient Comments: 06/14- otc unable to verify magnesium aspart,citrate,oxide 400 mg magnesium capsule 0 mg PO UD Patient Comments: 06/14- otc unable to verify ginkgo biloba leaf extract 120 mg capsule 120 mg PO DAILY Patient Comments: 06/14- otc unable to verify Rx Instructions: give with meal/snack potassium citrate 99 mg capsule 0 mg PO UD Patient Comments: 06/14- otc unable to verify multivitamin Tablet 1 tab PO HS Patient Comments: 06/14- otc unable to verify Discontinued gabapentin 300 mg capsule 300 mg PO TID Discharge Orders: Discharge Order (Routine); Ordered 06/25/25 Ordered By: Rosalee Tilley Admission Data Admit Date/Time: 06/14/25 06:43 Attending Provider: Rosalee Tilley Admit Provider: Nimesh Troy Primary Care Provider: Concepción Parrish Other Providers: Nimesh Troy; Abisai Anthony Jr; Cristiano Harper Other Interventions: Discharge Summary Assessment (RN) Last Done: 06/25/25 12:55 Hospital Stay Data Consultations 06/14/25 06:24 ED Decision to Admit Stat 06/14/25 11:52 Consult Cardiology Routine 06/16/25 10:01 Consult Gastroenterology Routine Procedures Performed Operation Date: 06/19/25 08:00 Actual Procedures p Cineradiography w/Routine Exam - Dontrell Manzano MD p Cath, Coronaries ONLY (no LV) - Dontrell Manzano MD Diagnostic Imagining Performed 06/14/25 05:01 CT abd pelvis IV con only Stat 06/19/25 06:59 CL Cath Imgs for PACS use only Stat 06/19/25 11:12 CT head/brain wo con Routine CTA abd pelvis wo/w con [CT angio abd pelvis wo/w con] Urgent Pending Results Patient Have Any Pending Studies at Discharge: Yes (plasma and serum metanephrines, gastrin level, tryptase levels) Discharge Instructions Given to Patient (Per Discharging Provider) I think you did have some significant cannabis withdrawal earlier on which has resolved Avoiding "street" cannabis is a good idea because sometimes it is laced with other drugs / substances and the THC levels can be spiked You had severely high blood pressure and high heart rates earlier in the hospital stay, which has resolved. This caused some heart muscle strain but none of your coronary arteries were blocked -continue taking propranolol - this controls blood pressure, heart rate, and has a calming effect -this can be tapered off over time and/or changed to a more long acting BP medication if necessary -eventually you'll benefit from addition of a statin medicine to prevent wor sening of coronary artery disease - deferred until your other symptoms improve I am not sure what causes your abdominal spasms / pain. It had clearly flared up. We did extensive testing (CT scans of abdomen, abdominal blood vessels, endoscopy) but did not find a specific cause. Right now symptoms are controlled with lorazepam and oxycodone, but these are not very safe for intermediate accountant use and should be tapered off over a few weeks -continue mirtazapine at night (Remeron) this is safe for detention use and helps with sleep, appetite, and mood -try to slowly taper the oxycodone - after a few days or a week try decreasing to 1 tab (or 1.5 tabs) instead of 2 tabs -try to reduce the frequency of using lorazepam (ativan) and eventually decrease to 1 tab -follow up in primary care to continue tapering off -to help with this I temporarily increased your gabapentin For gastritis (stomach inflammation) seen on EGD continue taking pantoprazole (acid suppression medicine), to help stomach heal There are several lab tests still pending to check for rare problems - these can take up to a few more weeks to result Stay on regular bowel meds to prevent constipation while on oxycodone For constipation: Miralax 1 capful daily or twice a day as needed Senna tabs 1-2 tabs daily as needed -these are both safe to take intermediate accountant Dulcolax 5-10 mg tab daily as needed if the above meds are ineffective Dulcolax suppository per rectum daily as needed -these are for more severe constipation and are for short term use These medications are all available over the counter at the drugstore It was a pleasure taking care of you in the hospital, Rosalee Tilley MD Total Time Total Time Spent Total Time Spent (In Minutes): I personally spent: 40 minutes today on clinical care activities including: reviewing chart notes and vital signs examining and counseling the patient counseling the patient's family writing orders writing prescriptions, discharge instructions documentation Coding Level of Care Code 51651 INP/OBS DISCH >30 MIN Diagnoses Other acute gastritis without hemorrhage K29.00 Gastritis type: other gastritis Generalized abdominal pain R10.84 Abdominal location: generalized Type [address] elevation I21.A1 Atherosclerosis of [place] coronary artery of [place] heart without angina pectoris I25.10 Associated angina: without angina Coronary Disease-Associated Artery/Lesion type: [place] artery [place] vs. transplanted heart: [place] heart Ischemic cardiomyopathy I25.5 Accelerated hypertension I10 Cannabis use disorder in remission F12.91
[2025-06-25] MEDS ORDERED: DICYCLOMINE HCL 10 MG CAP PO SCH (13:00)
[2025-06-25] MEDS ORDERED: GABAPENTIN 300 MG CAP PO SCH (14:00)
[2025-06-25] MEDS ORDERED: PROPRANOLOL HCL 10 MG TAB PO SCH (14:00)
== END 2025-06-25 13:25 | disposition home or self-care (01) | DRG 896 ==
LOC: SUATTDRO → ED 04:51 → EDINP 06:43 → SUATTDRO 06:43 → 2S 11:52 → 3N 06-23 15:09
PROC: CLB.CCO (2025-06-19 08:00)